=== PATIENT | female | born 1930 | race American Indian/Alaskan Native ===

== ENCOUNTER 2017-03-23 11:35 | Inpatient (IN) | payer MEDICARE, MEDICAID ==
--- NOTE | 2017-03-23 12:30 | C.PDOC ---
History Of Present Illness 86 yr old female sent to ER by for admission for an infected left heel ulcer. Patient was seen by on 03/20/17. History obtained by daughter. ROS is limited due to patient clinical condition. Daughter denies fever. Time Seen by Provider: 03/23/17 11:51 Chief Complaint (Nursing): Abnormal Skin Integrity History Per: Family (Daughter) History/Exam Limitations: no limitations Onset/Duration Of Symptoms: Days Past Medical History Reviewed: Historical Data, Nursing Documentation, Vital Signs Vital Signs: Last Vital Signs Temp 97.6 F 03/23/17 14:23 Pulse 90 03/23/17 14:23 Resp 20 03/23/17 14:23 BP 194/100 H 03/23/17 14:23 Pulse Ox 99 03/23/17 16:35 - Medical History PMH: Alzheimer's Disease, Anemia, Arthritis (right knee), Dementia, HTN, Hypercholesterolemia - [facility] Procedures ATRIAL CARDIOVERSION (04/12/15) CENTRAL VENOUS CATHETER PLACEMENT WITH GUIDANCE (09/25/14) INSERTION OF INFUSION DEV INTO SUP VENA CAVA, PERC APPROACH (06/11/16) Family History: States: No Known Family Hx - Social History Hx Tobacco Use: No Hx Alcohol Use: No Hx Substance Use: No - Immunization History Hx Tetanus Toxoid Vaccination: No Hx Influenza Vaccination: No Hx Pneumococcal Vaccination: No Review Of Systems Except As Marked, All Systems Reviewed And Found Negative. Constitutional: Negative for: Fever Musculoskeletal: Positive for: Other ((+) Left heel ulcer.) Physical Exam - Physical Exam Appears: Non-toxic, No Acute Distress, Combative, Agitated, Chronically Ill, Other (thin, dementia) Skin: Warm, Dry, No Rash, Other (Chronic open ulcer to the left heel 2x2cm with no drainage or malodor. Ulcerated open skin around the ankle with mild bleeding. No foul odor. Right foot with chronic ulcer to the dorsal foot.) Head: Atraumatic, Normacephalic Eye(s): bilateral: Normal Inspection Oral Mucosa: Moist Neck: Normal ROM Chest: Symmetrical, No Tenderness Cardiovascular: Rhythm Regular, No Murmur Respiratory: Normal Breath Sounds, No Rales, No Rhonchi, No Wheezing Extremity: Normal ROM, No Deformity, No Swelling Neurological/Psych: Other (Patient at baseline according to daughter. ) Gait: Unable To Assess ED Course And Treatment - Laboratory Results Result Diagrams: 03/23/17 12:44 03/23/17 12:44 Lab Interpretation: No Changes Compared To Prior Results ECG: Interpreted By Me, Viewed By Me ECG Rhythm: Sinus Rhythm ECG Interpretation: Normal Interpretation Of ECG: Normal intervals. Normal axis. Rate From EC (BPM) O2 Sat by Pulse Oximetry: 99 (RA ) Pulse Ox Interpretation: Normal - Other Rad CXR X-Ray: Viewed By Me, Read By Radiologist Interpretation: HISTORY: SOB. COMPARISON: Chest x-ray performed 06/11/16. TECHNIQUE: Chest, one view. FINDINGS: The patient's chin obscures evaluation of the left upper lobe. LUNGS: Mild left basilar linear atelectasis. Please note that chest x-ray has limited sensitivity for the detection of pulmonary masses. PLEURA: No significant pleural effusion identified. No definite pneumothorax . CARDIOVASCULAR: Heart size appears within normal limits. Atherosclerotic calcifications of the aorta. OSSEOUS STRUCTURES: Degenerative changes. VISUALIZED UPPER ABDOMEN: Elevation of the left hemidiaphragm. OTHER FINDINGS: None. IMPRESSION: Mild left basilar linear atelectasis. X-Ray - Left Foot X-Ray: Viewed By Me, Read By Radiologist Interpretation: PROCEDURE: Left Foot Radiographs. HISTORY: pain, ulcer, bleeding. COMPARISON: Left foot radiographs performed 06/11/16. FINDINGS: Severe diffuse osseous demineralization limits evaluation for acute fracture lines. Chronic deformities as well as severe hammertoe deformities limit evaluation. No acute displaced fracture identified. The foot is severely plantar flexed. IMPRESSION: No definite acute displaced fracture. Severe osteopenia. Severe degenerative changes. Medical Decision Making Medical Decision Making: Impression: Infected left foot ulcer Prior records reviewed: Patient last admitted for cellulitis and foot ulcer on 06/11/17 Plan: * EKG, labs xrays for admission Progress: 1215 Podiatry resident Debi arrives to ED to evaluate patient Podiatry applied dressing and wants patient admitted to medicine and will see as consult Labs show renal insuffiency, no leukocytosis Attempt to contact Dr Graf [phone] Faisal Polk who states its private patient and to continue trying. 1600 Still no call back from Dr Graf. contact hospitalist for admission. Patient to be admitted to Dr Jamil 1640 Dr Graf calls back and wants patient on his service Disposition - Disposition Disposition: HOSPITALIZED Disposition Time: 16:00 Condition: FAIR Forms: [facility] ([place]) - Clinical Impression Clinical Impression: Renal insufficiency, Foot ulcer, Cellulitis - PA / CARDIAC EXERCISE PHYSIOLOGIST / Resident Statement MD/DO has reviewed & agrees with the documentation as recorded. - Scribe Statement The provider has reviewed the documentation as recorded by the Scribe Vanesa Cruz All medical record entries made by the Scribe were at my direction and personally dictated by me. I have reviewed the chart and agree that the record accurately reflects my personal performance of the history, physical exam, medical decision making, and the department course for this patient. I have also personally directed, reviewed, and agree with the discharge instructions and disposition.
[2017-03-23 13:07] LABS: BILIRUBIN,TOTAL 0.4 mg/dL (0.2-1.3)
[2017-03-23 13:08] LABS: ALB/GLOB RATIO 0.8 (1.0-2.1); CALCIUM 8.9 mg/dl (8.6-10.4); TOTAL PROTEIN 7.1 g/dL (6.3-8.3)
[2017-03-23 13:21] LABS: BASO % 0.7 % (0.0-2.0); EOS # 0.2 K/uL (0.0-0.7); EOS % 3.6 % (0.0-4.0); LYMPH % 30.9 % (20.0-40.0); MEAN CELL VOLUME 88.6 fL (81.0-99.0); MEAN CORPUSCULAR HEMOGLOBIN 28.9 pg (27.0-31.0); MEAN CORPUSCULAR HGB CONC 32.6 g/dL (33.0-37.0); MEAN PLATELET VOLUME 7.2 fL (7.2-11.7); MONO # 0.6 K/uL (0.0-0.8); MONO % 8.6 % (0.0-10.0); NRBC % 0.3 % (0.0-2.0); RED CELL DISTRIBUTION WIDTH 16.5 % (11.5-14.5); WHITE BLOOD COUNT 6.6 K/uL (4.8-10.8)
[2017-03-23 13:26] LABS: INR 1.1
--- NOTE | 2017-03-23 13:31 | CP.PCM.CON ---
History of Present Illness - History of Present Illness History of Present Illness: 86 year old female with pmhx including demetnia was seen at bedside in the ED for left leg ulcer. Patients daughter is at bedside and history obtained from her. She saw Dr. Pierson in office on Thursday and he suggested they come to the ED for her to be examined. Daughter states that a nurse comes 3x a week for dressing changes. Past Patient History - Past Medical History & Family History Past Medical History?: Yes - Past Social History Smoking Status: Former Smoker - CARDIAC Hx Hypercholesterolemia: Yes Hx Hypertension: Yes - PULMONARY Hx Respiratory Disorders: No Other/Comment: FORMER SMOKER - NEUROLOGICAL Hx Alzheimer's Disease: Yes Hx Dementia: Yes - HEENT Hx HEENT Problems: No - RENAL Hx Chronic Kidney Disease: No - ENDOCRINE/METABOLIC Hx Endocrine Disorders: No - HEMATOLOGICAL/ONCOLOGICAL Hx Anemia: Yes - INTEGUMENTARY Hx Dermatological Problems: Yes Other/Comment: LEFT FOOT WOUND - MUSCULOSKELETAL/RHEUMATOLOGICAL Hx Arthritis: Yes (right knee) - GASTROINTESTINAL Hx Gastrointestinal Disorders: No - GENITOURINARY/GYNECOLOGICAL Hx Genitourinary Disorders: Yes Hx Incontinence: Yes - PSYCHIATRIC Hx Substance Use: No - SURGICAL HISTORY Hx Surgeries: No - ANESTHESIA Hx Anesthesia: Yes Hx Anesthesia Reactions: No Hx Malignant Hyperthermia: No Meds Allergies/Adverse Reactions: Allergies Allergy/AdvReac Type Severity Reaction Status Date / Time No Known Allergies Allergy Verified 03/23/17 11:41 Physical Exam - Constitutional Appears: Combative, Chronically Ill - Extremities Exam Additional comments: lower extremity focused exam: Vasc: Dp and PT pulses non-palpable b/l Neuro: unable to assess Ortho: Pain on palpation to right and left lower extremity Derm: Open ulceration noted circumferentailly around the left ankle. with sanginoud drainage, no malodor, no purulence noted. Open ulceration measuring approxiametly 2 cm by 2cm with a granulare base to the right heel, no drainage, no malodor, no purulence, noted - Neurological Exam Neurological exam: Alert, Altered Results - Vital Signs Recent Vital Signs: Last Vital Signs Temp 97.5 F L 03/23/17 11:56 Pulse Resp 16 03/23/17 11:38 BP 97/58 L 03/23/17 11:38 Pulse Ox 99 03/23/17 13:05 - Labs Result Diagrams: 03/23/17 12:44 03/23/17 12:44 Labs: Laboratory Results - last 24 hr 03/23/17 03/23/17 12:44 12:44 WBC 6.6 RBC 2.83 L Hgb 8.2 L Hct 25.0 L MCV 88.6 MCH 28.9 MCHC 32.6 L RDW 16.5 H Plt Count 338 D MPV 7.2 Neut % (Auto) 56.2 Lymph % (Auto) 30.9 [place] % (Auto) 8.6 Eos % (Auto) 3.6 Baso % (Auto) 0.7 Neut # 3.7 Lymph # 2.0 [place] # 0.6 Eos # 0.2 Baso # 0.0 Sodium 146 Potassium 4.0 Chloride 111 H Carbon Dioxide 23 Anion Gap 16 BUN 29 H Creatinine 1.5 H Est GFR ( Amer) 40 Est GFR (Non-Af Amer) 33 Random Glucose 99 Calcium 8.9 Total Bilirubin 0.4 AST 25 ALT 17 Alkaline Phosphatase 98 Total Protein 7.1 Albumin 3.2 L Globulin 3.9 Albumin/Globulin Ratio 0.8 L Assessment & Plan - Assessment and Plan (Free Text) Assessment: 86 year old female with left ankle ulcer, and right heel pressure ulcer Plan: pt examined and evaluated discussed in detail with attending, Dr. Pierson chart, labs, vitals reviewed wound culture of left ankle pending left and right LE cleansed with normal sterile saline left ankle dressed with adaptic, 4x4, ABD, kerlix right heel dressed with ABD, kerlix [facility]u [facility]iatry will continue to follow patient while in house
--- NOTE | 2017-03-23 14:22 | RAD ---
HISTORY: SOB COMPARISON: Chest x-ray performed 06/11/16 TECHNIQUE: Chest, one view. FINDINGS: The patient's chin obscures evaluation of the left upper lobe. LUNGS: Mild left basilar linear atelectasis. Please note that chest x-ray has limited sensitivity for the detection of pulmonary masses. PLEURA: No significant pleural effusion identified. No definite pneumothorax . CARDIOVASCULAR: Heart size appears within normal limits. Atherosclerotic calcifications of the aorta. OSSEOUS STRUCTURES: Degenerative changes. VISUALIZED UPPER ABDOMEN: Elevation of the left hemidiaphragm. OTHER FINDINGS: None. IMPRESSION: Mild left basilar linear atelectasis.
--- NOTE | 2017-03-23 14:30 | RAD ---
PROCEDURE: Left Foot Radiographs. HISTORY: pain, ulcer, bleeding COMPARISON: Left foot radiographs performed 06/11/16 FINDINGS: Severe diffuse osseous demineralization limits evaluation for acute fracture lines. Chronic deformities as well as severe hammertoe deformities limit evaluation. No acute displaced fracture identified. The foot is severely plantar flexed. IMPRESSION: No definite acute displaced fracture. Severe osteopenia. Severe degenerative changes.
[2017-03-23] MEDS ORDERED: Vancomycin 1 GM 1 GM/250 ML BAG IV ONE (16:45)
[2017-03-23] MEDS ORDERED: Piperacillin/Tazobact 2.25 GM in Sodium Chloride 100 ML IVPB SCH (17:45)
--- NOTE | 2017-03-23 17:50 | CP.PCM.HP ---
<Cristopher Juares - Last Filed: 03/23/17 18:21> History of Present Illness - History of Present Illness History of Present Illness: PGY1 Medicine Note for Dr. Jamil 86 year old AA female with a past medical history of Dementia, HTN, HLD and chronic anemia (of unknown cause). Patient's dementia is rather advanced, diagnosed over 4 years ago. She is able to speak, but does not always make sense. Her daughter is at bedside, and is the one who provided the large majority of the history. The patient was sent into the ED today by Dr. Pierson. The patient has chronic non-healing ulcers on both side of her feet, and has had them for many years. The daughter was giving the patient a bath when she noticed a new ulcer under the left side of the patient's heel. The patient has a history of a skin graft in this region, many years ago. The daughter states that over the past couple of years, "the graft appears to be deteriorating and falling off." When the patient was asked if she is in any pain or had any trouble breathing, she stated no. The rest of the review of symptoms was unattainable due to the patient's inability to answer any questions or follow commands. PMHx: Dementia, HTN, HLD and chronic anemia PSHx: Craniotomy (after fall), some knee surgery when she was young Family: unknown Social: Previous smoker, previous drinker (socially), denies drugs Allergy: NKDA Present on Admission - Present on Admission Any Indicators Present on Admission: No Review of Systems - Review of Systems Systems not reviewed;Unavailable: Dementia Past Patient History - Past Medical History & Family History Past Medical History?: Yes - Past Social History Smoking Status: Former Smoker - CARDIAC Hx Hypercholesterolemia: Yes Hx Hypertension: Yes - PULMONARY Hx Respiratory Disorders: No Other/Comment: FORMER SMOKER - NEUROLOGICAL Hx Alzheimer's Disease: Yes Hx Dementia: Yes - HEENT Hx HEENT Problems: No - RENAL Hx Chronic Kidney Disease: No - ENDOCRINE/METABOLIC Hx Endocrine Disorders: No - HEMATOLOGICAL/ONCOLOGICAL Hx Anemia: Yes - INTEGUMENTARY Hx Dermatological Problems: Yes Other/Comment: LEFT FOOT WOUND - MUSCULOSKELETAL/RHEUMATOLOGICAL Hx Arthritis: Yes (right knee) - GASTROINTESTINAL Hx Gastrointestinal Disorders: No - GENITOURINARY/GYNECOLOGICAL Hx Genitourinary Disorders: Yes Hx Incontinence: Yes - PSYCHIATRIC Hx Substance Use: No - SURGICAL HISTORY Hx Surgeries: No - ANESTHESIA Hx Anesthesia: Yes Hx Anesthesia Reactions: No Hx Malignant Hyperthermia: No Meds Allergies/Adverse Reactions: Allergies Allergy/AdvReac Type Severity Reaction Status Date / Time No Known Allergies Allergy Verified 03/23/17 11:41 Physical Exam - Constitutional Appears: Confused, Chronically Ill - Head Exam Additional comments: Scar from previous craniotomy on right side of head. - Eye Exam Eye Exam: EOMI - ENT Exam ENT Exam: Mucous Membranes Moist - Respiratory Exam Respiratory Exam: Clear to Auscultation Bilateral, NORMAL BREATHING PATTERN. absent: Accessory Muscle Use, Wheezes, Respiratory Distress - Cardiovascular Exam Cardiovascular Exam: REGULAR RHYTHM, +S1, +S2 - GI/Abdominal Exam GI & Abdominal Exam: Normal Bowel Sounds, Soft. absent: Distended, Firm, Guarding - Extremities Exam Additional comments: Podiatry recently changed dressings on feet, neither foot was visualized by resident. - Neurological Exam Neurological exam: Alert, Altered - Skin Skin Exam: Warm Additional comments: Feet are wrapping and sitting in pressure ulcer boots. Results - Vital Signs Recent Vital Signs: Last Vital Signs Temp 97.9 F 03/23/17 16:34 Pulse 74 03/23/17 16:34 Resp 16 03/23/17 16:34 BP 111/54 L 03/23/17 16:34 Pulse Ox 99 03/23/17 16:40 - Labs Result Diagrams: 03/23/17 12:44 03/23/17 12:44 Assessment & Plan - Assessment and Plan (Free Text) Plan: Chronic non-healing ulcers - Podiatry Consulted, Dr. Pierson - will follow up recs - HTN Started on home medications - HCTZ 12.5mg PO daily - Lopressor 25mg PO daily HLD Started on home medication - Crestor 10mg PO HS Dementia Started on home medication - Memantine Hcl/Donepezil Hcl 7mg-10mg PO daily - Lexapro 5mg PO HS - Topamax 25mg PO BID Anemia Started on home medications - Ferrous Sulfate 325mg PO daily - Folic Acid 1mg PO daily Prophylactic Care DC'd patient's home Plavix in case of potential procedure - Heparin 5,000u SC Q8h - No GI prophylaxis indicated at this time This is a patient of Dr. Locke. Staff attempted to contact him multiple times to accept patient for admission. He was unable to be reached, so the patient will be admitted under the hospitalist care for now. We will attempt to contact him again tomorrow . Case discussed with Dr. Loulou Ascencion PGY1 - Date & Time Date: 03/23/17 Time: 17:00 <Rm Jamil - Last Filed: 03/24/17 07:22> Results - Vital Signs Recent Vital Signs: Last Vital Signs Temp 98.5 F 03/23/17 23:00 Pulse 87 03/23/17 23:00 Resp 20 03/23/17 23:00 BP 119/59 L 03/23/17 23:00 Pulse Ox 97 03/23/17 23:00 - Labs Result Diagrams: 03/23/17 12:44 03/23/17 12:44 Attending/Attestation - Attestation I have personally seen and examined this patient.: Yes I have fully participated in the care of the patient.: Yes I have reviewed all pertinent clinical information: Yes Notes (Text): 03/24/17 07:16 Medical Attending: Patient was seen and examined by me. Agree with the above note by the resident Patient's PMD does come to the hospital, I asked the resident to try to reach out to the PMD again. The patient's family member was present in the room and we discussed and reviewed the history of the bilateral foot ulcers. The dressing had just been changed before we saw patient. Patient appears to have a baseline dementia, pleasant affect. Only follows a few commands when examined. She is not in any acute distress at this time. We also asked about Hgb being low, per family there is a history of anemia. We asked about blood transfusion however the family said they wanted to think things over first. Type and screen for now thank you Rm Jamil
[2017-03-23] MEDS ORDERED: Vancomycin 1 GM 1 GM/250 ML BAG IVPB ONE (19:31)
[2017-03-23] MEDS: Piperacillin/Tazobact 2.25 GM in Sodium Chloride 100 ML IVPB SCH (20:42)
--- NOTE | 2017-03-23 23:08 | CP.PCM.CON ---
History of Present Illness - History of Present Illness History of Present Illness: Infectious Disease Consult; HPI; 86-year-old female with multiple medical problems including Alzheimer's dementia , hypertension hypercholesterolemia who presented to [facility] ER for left leg ulcer. Patient's daughter is at bedside and history obtained from her. Patient saw Dr. Pierson in the office on Thursday who suggested her to come to the ER for admission and further workup. Daughter states that the patient had nurse come 3 times a week for dressing changes but with little improvement. She denied any fever, chills or any recent injury or trauma to the left ankle or heel. Patient was given a dose of Zosyn and one dose of vancomycin after appropriate cultures. Infectious disease consultation requested by Dr. JOLLEY for further evaluation and antibiotics. PMH: Alzheimer's Disease, Dementia, HTN, Hypercholesterolemia Family History: States: Unknown Family Hx ALLERGY; NKA - Social History Hx Tobacco Use: No Hx Alcohol Use: No Hx Substance Use: No - Immunization History Hx Tetanus Toxoid Vaccination: Yes Hx Influenza Vaccination: Yes Hx Pneumococcal Vaccination: Yes Review of Systems - Review of Systems Systems not reviewed;Unavailable: Dementia (PATIENT UNABLE TO GIVE ANY DETAILS.) Past Patient History - Past Medical History & Family History Past Medical History?: Yes - Past Social History Smoking Status: Former Smoker - CARDIAC Hx Hypercholesterolemia: Yes Hx Hypertension: Yes Other/Comment: atrial cardioversion - PULMONARY Hx Respiratory Disorders: No Other/Comment: FORMER SMOKER - NEUROLOGICAL Hx Alzheimer's Disease: Yes Hx Dementia: Yes - HEENT Hx HEENT Problems: No - RENAL Hx Chronic Kidney Disease: No - ENDOCRINE/METABOLIC Hx Endocrine Disorders: No - HEMATOLOGICAL/ONCOLOGICAL Hx Anemia: Yes - INTEGUMENTARY Hx Dermatological Problems: Yes Other/Comment: LEFT FOOT WOUND - MUSCULOSKELETAL/RHEUMATOLOGICAL Hx Falls: No - GASTROINTESTINAL Hx Gastrointestinal Disorders: No - GENITOURINARY/GYNECOLOGICAL Hx Genitourinary Disorders: Yes Hx Incontinence: Yes - PSYCHIATRIC Hx Substance Use: No - SURGICAL HISTORY Hx Surgeries: No - ANESTHESIA Hx Anesthesia: Yes Hx Anesthesia Reactions: No Hx Malignant Hyperthermia: No Has any member of the family had a problem w/ anesthesia?: No Meds Allergies/Adverse Reactions: Allergies Allergy/AdvReac Type Severity Reaction Status Date / Time No Known Allergies Allergy Verified 03/23/17 11:41 - Medications Medications: Current Medications Escitalopram Oxalate (Lexapro) 5 mg PO HS [facility] Last Admin: 03/23/17 22:27 Dose: 5 mg Ferrous Sulfate (Feosol) 325 mg PO DAILY [facility] Folic Acid (Folic Acid) 1 mg PO DAILY [facility] Heparin Sodium (Porcine) (Heparin) 5,000 units SC Q8 [facility] Last Admin: 03/23/17 22:05 Dose: 5,000 units Home Med (Memantine Hcl/Donepezil Hcl [Namzaric 7 Mg-10 Mg Capsule]) 1 each PO DAILY [facility] Hydrochlorothiazide (Microzide) 12.5 mg PO DAILY [facility] Piperacillin Sod/Tazobactam (Sod 2.25 gm/ Sodium Chloride) 100 mls @ 200 mls/ hr IVPB Q8H [facility] Last Admin: 03/23/17 20:42 Dose: Not Given Metoprolol Tartrate (Lopressor) 25 mg PO DAILY [facility] Pneumococcal Polyvalent Vaccine (Pneumovax 23 Vaccine) 0.5 ml IM .ONCE ONE Stop: 03/25/17 10:01 Rosuvastatin Calcium (Crestor) 10 mg PO [facility] Last Admin: 03/23/17 22:01 Dose: 10 mg Topiramate (Topamax) 25 mg PO BID [facility] Last Admin: 03/23/17 22:01 Dose: 25 mg Zinc Sulfate (Zinc Sulfate 220 Mg Cap) 220 mg PO DAILY [facility] Physical Exam - Constitutional Appears: No Acute Distress - Head Exam Head Exam: NORMAL INSPECTION - Eye Exam Eye Exam: PERRL - ENT Exam ENT Exam: Normal Oropharynx - Neck Exam Neck exam: Positive for: Normal Inspection - Respiratory Exam Respiratory Exam: Decreased Breath Sounds - Cardiovascular Exam Cardiovascular Exam: REGULAR RHYTHM, +S1, +S2 - GI/Abdominal Exam GI & Abdominal Exam: Normal Bowel Sounds, Soft - Extremities Exam Extremities exam: Negative for: calf tenderness Additional comments: patient has an ulcer around the left ankle with minimal drainage, no purulence noted. Open ulcer about 2 cm x 2 cm right heel noted with no drainage. pulses are distant and not palpable. Sensory examination could not be evaluated. Tenderness at the site and around the ulcer on palpation. - Neurological Exam Neurological exam: Alert (forgetful) - Psychiatric Exam Psychiatric exam: Flat Affect - Skin Skin Exam: Warm Results - Vital Signs Recent Vital Signs: Last Vital Signs Temp 98 F 03/23/17 20:15 Pulse 70 03/23/17 20:15 Resp 16 03/23/17 20:15 BP 111/52 L 03/23/17 20:15 Pulse Ox 100 03/23/17 20:15 - Labs Result Diagrams: 03/23/17 12:44 03/23/17 12:44 - Imaging and Cardiology Chest x-ray Status: Report reviewed by me (LEFT BASILAR ATELECTASIS.) X-RAYS LEFT FOOT Status: Report reviewed by me Assessment & Plan (1) Foot ulcer Status: Acute (2) Renal insufficiency Status: Acute (3) Anemia Status: Acute (4) HTN (hypertension) Status: Acute (5) Dementia Status: Acute - Assessment and Plan (Free Text) Assessment: IMPRESSION: LEFT ANKLE ULCER R/O OSTEOMYELITIS RIGHT HEEL PRESSURE ULCER -STAGE 2 RENAL INSUFFICIENCY. ANEMIA. HYPERTENSION. DEMENTIA. PLAN; PANCULTURES wOUND CULTURES ESR,CRP. CONTINUE iv ZOSYN 2.25 EVERY 8 HOURLY .03/23/17. START iv DAPTOMYCIN 4 MG/KG iv PIGGYBACK EVERY 48 HOURLY FOR MRSA/STREP COVERAGE.03/23/17 PATIENT GOT ONE DOSE OF VANCOMYCIN BUT HAS CHRONIC RENAL INSUFFICIENCY. wE'LL HOLD OFF NEPHROTOXIC DRUGS WERE NOW. fOLLOW-UP CULTURES AND BONE SCAN FOR FURTHER MANAGEMENT AND ADJUSTMENT OF ANTIBIOTICS. CASE DISCUSSED WITH THE STAFF LICENSED LOAN OFFICER ASSISTANT.
[2017-03-24] MEDS: Piperacillin/Tazobact 2.25 GM in Sodium Chloride 100 ML IVPB SCH ×3 (02:15→19:11)
--- NOTE | 2017-03-24 07:44 | CP.PCM.PN ---
Objective - Vital Signs/Intake and Output Vital Signs (last 24 hours): Temp Pulse Resp BP Pulse Ox 98.5 F 87 20 119/59 L 97 03/23/17 23:00 03/23/17 23:00 03/23/17 23:00 03/23/17 23:00 03/23/17 23:00 Intake and Output: 03/24/17 03/24/17 06:59 18:59 Intake Total 50 Output Total 0 Balance 50 - Medications Medications: Current Medications Escitalopram Oxalate (Lexapro) 5 mg PO HS [facility] Last Admin: 03/23/17 22:27 Dose: 5 mg Ferrous Sulfate (Feosol) 325 mg PO DAILY [facility] Folic Acid (Folic Acid) 1 mg PO DAILY [facility] Heparin Sodium (Porcine) (Heparin) 5,000 units SC Q8 [facility] Last Admin: 03/24/17 05:09 Dose: Not Given Home Med (Memantine Hcl/Donepezil Hcl [Namzaric 7 Mg-10 Mg Capsule]) 1 each PO DAILY [facility] Hydrochlorothiazide (Microzide) 12.5 mg PO DAILY [facility] Piperacillin Sod/Tazobactam (Sod 2.25 gm/ Sodium Chloride) 100 mls @ 200 mls/ hr IVPB Q8H [facility] Last Admin: 03/24/17 02:15 Dose: 200 mls/hr Daptomycin 240 mg/ Sodium (Chloride) 100 mls @ 100 mls/hr IV Q48H [facility] Stop: 03/29/17 10:31 Metoprolol Tartrate (Lopressor) 25 mg PO DAILY [facility] Pneumococcal Polyvalent Vaccine (Pneumovax 23 Vaccine) 0.5 ml IM .ONCE ONE Stop: 03/25/17 10:01 Topiramate (Topamax) 25 mg PO BID [facility] Last Admin: 03/23/17 22:01 Dose: 25 mg Zinc Sulfate (Zinc Sulfate 220 Mg Cap) 220 mg PO DAILY [facility] - Labs Labs: PT 12.5 SECONDS (9.7-12.2) H 03/23/17 13:14 INR 1.1 03/23/17 13:14 APTT 32 SECONDS (21-34) 03/23/17 13:14
[2017-03-24 08:06] LABS: BASO % 0.5 % (0.0-2.0); EOS # 0.2 K/uL (0.0-0.7); EOS % 3.1 % (0.0-4.0); HEMATOCRIT 24.9 % (34.0-47.0); LYMPH # 1.5 K/uL (1.0-4.3); LYMPH % 26.1 % (20.0-40.0); MEAN CELL VOLUME 88.7 fL (81.0-99.0); MEAN CORPUSCULAR HEMOGLOBIN 28.2 pg (27.0-31.0); MEAN CORPUSCULAR HGB CONC 31.8 g/dL (33.0-37.0); MEAN PLATELET VOLUME 7.1 fL (7.2-11.7); MONO # 0.5 K/uL (0.0-0.8); MONO % 8.6 % (0.0-10.0); RED CELL DISTRIBUTION WIDTH 16.4 % (11.5-14.5); WHITE BLOOD COUNT 5.8 K/uL (4.8-10.8)
[2017-03-24 08:27] LABS: POTASSIUM 3.9 mmol/L (3.6-5.2)
[2017-03-24 08:29] LABS: BILIRUBIN,TOTAL 0.4 mg/dL (0.2-1.3)
[2017-03-24 08:30] LABS: ALB/GLOB RATIO 0.9 (1.0-2.1); CALCIUM 8.7 mg/dl (8.6-10.4); TOTAL PROTEIN 6.4 g/dL (6.3-8.3)
--- NOTE | 2017-03-24 09:39 | CP.PCM.PN ---
<Reji Pierson - Last Filed: 03/24/17 09:37> Subjective - Date & Time of Evaluation Date of Evaluation: 03/24/17 Time of Evaluation: 09:15 - Subjective Subjective: pt seen for infected ulcers left ankle extensive in nature and right heel . Objective - Vital Signs/Intake and Output Vital Signs (last 24 hours): Temp Pulse Resp BP Pulse Ox 98 F 86 20 129/60 97 03/24/17 08:00 03/24/17 08:00 03/24/17 08:00 03/24/17 08:00 03/23/17 23:00 Intake and Output: 03/24/17 03/24/17 06:59 18:59 Intake Total 50 Output Total 0 Balance 50 - Medications Medications: Current Medications Escitalopram Oxalate (Lexapro) 5 mg PO HS [facility] Last Admin: 03/23/17 22:27 Dose: 5 mg Ferrous Sulfate (Feosol) 325 mg PO DAILY [facility] Folic Acid (Folic Acid) 1 mg PO DAILY [facility] Heparin Sodium (Porcine) (Heparin) 5,000 units SC Q8 [facility] Last Admin: 03/24/17 05:09 Dose: Not Given Home Med (Memantine Hcl/Donepezil Hcl [Namzaric 7 Mg-10 Mg Capsule]) 1 each PO DAILY [facility] Hydrochlorothiazide (Microzide) 12.5 mg PO DAILY [facility] Piperacillin Sod/Tazobactam (Sod 2.25 gm/ Sodium Chloride) 100 mls @ 200 mls/ hr IVPB Q8H [facility] Last Admin: 03/24/17 02:15 Dose: 200 mls/hr Daptomycin 240 mg/ Sodium (Chloride) 100 mls @ 100 mls/hr IV Q48H [facility] Stop: 03/29/17 10:31 Metoprolol Tartrate (Lopressor) 25 mg PO DAILY [facility] Pneumococcal Polyvalent Vaccine (Pneumovax 23 Vaccine) 0.5 ml IM .ONCE ONE Stop: 03/25/17 10:01 Topiramate (Topamax) 25 mg PO BID [facility] Last Admin: 03/23/17 22:01 Dose: 25 mg Zinc Sulfate (Zinc Sulfate 220 Mg Cap) 220 mg PO DAILY [facility] - Labs Labs: 03/24/17 07:54 03/24/17 07:54 PT 12.5 SECONDS (9.7-12.2) H 03/23/17 13:14 INR 1.1 03/23/17 13:14 APTT 32 SECONDS (21-34) 03/23/17 13:14 <Alethea Browne - Last Filed: 03/24/17 14:18> Subjective - Subjective Subjective: 86 year old female was seen at bedside this morning with attending Dr. Pierson, regarding left ankle ulcer and right heel ulcer. Objective - Vital Signs/Intake and Output Vital Signs (last 24 hours): Temp Pulse Resp BP Pulse Ox 98 F 86 20 129/60 97 03/24/17 08:00 03/24/17 08:00 03/24/17 08:00 03/24/17 09:46 03/23/17 23:00 Intake and Output: 03/24/17 03/24/17 06:59 18:59 Intake Total 50 Output Total 0 Balance 50 - Medications Medications: Current Medications Escitalopram Oxalate (Lexapro) 5 mg PO [facility] Last Admin: 03/23/17 22:27 Dose: 5 mg Ferrous Sulfate (Feosol) 325 mg PO DAILY [facility] Last Admin: 03/24/17 09:46 Dose: 325 mg Folic Acid (Folic Acid) 1 mg PO DAILY [facility] Last Admin: 03/24/17 09:45 Dose: 1 mg Heparin Sodium (Porcine) (Heparin) 5,000 units SC Q8 [facility] Last Admin: 03/24/17 05:09 Dose: Not Given Home Med (Memantine Hcl/Donepezil Hcl [Namzaric 7 Mg-10 Mg Capsule]) 1 each PO DAILY [facility] Hydrochlorothiazide (Microzide) 12.5 mg PO DAILY [facility] Last Admin: 03/24/17 09:45 Dose: 12.5 mg Piperacillin Sod/Tazobactam (Sod 2.25 gm/ Sodium Chloride) 100 mls @ 200 mls/ hr IVPB Q8H [facility] Last Admin: 03/24/17 11:04 Dose: 200 mls/hr Daptomycin 240 mg/ Sodium (Chloride) 100 mls @ 100 mls/hr IV Q48H [facility] Stop: 03/29/17 10:31 Last Admin: 03/24/17 10:15 Dose: 100 mls/hr Metoprolol Tartrate (Lopressor) 25 mg PO DAILY [facility] Last Admin: 03/24/17 09:46 Dose: 25 mg Pneumococcal Polyvalent Vaccine (Pneumovax 23 Vaccine) 0.5 ml IM .ONCE ONE Stop: 03/25/17 10:01 Topiramate (Topamax) 25 mg PO BID [facility] Last Admin: 03/23/17 22:01 Dose: 25 mg Zinc Sulfate (Zinc Sulfate 220 Mg Cap) 220 mg PO DAILY [facility] Last Admin: 03/24/17 09:45 Dose: 220 mg - Labs Labs: 03/24/17 07:54 03/24/17 07:54 PT 12.5 SECONDS (9.7-12.2) H 03/23/17 13:14 INR 1.1 03/23/17 13:14 APTT 32 SECONDS (21-34) 03/23/17 13:14 - Constitutional Appears: Confused, Chronically Ill - Extremities Exam Additional comments: lower extremity focused exam: Vasc: DP and PT pulses non-palpable b/l Neuro: unable to assess Ortho: Pain on palpation to right and left lower extremity Derm: Open ulceration noted circumferentially around the left ankle with sanguineous drainage, no malodor, no purulence noted. Open ulceration measuring approxiametly 2 cm by 2cm with a granular base to the right heel, with sanguineous drainage, no malodor, no purulence noted - Neurological Exam Neurological Exam: Alert Assessment and Plan - Assessment and Plan (Free Text) Assessment: 86 year old female with left ankle ulcer, and right heel pressure ulcer Plan: pt examined and evaluated with attending, Dr. Pierson chart, labs, vitals reviewed wound culture of left ankle -pending left and right LE cleansed with normal sterile saline left ankle dressed with xeroform, 4x4, ABD, kerlix right heel dressed with xeroform,ABD, kerlix daily dressings by podiatry [facility] bone scan-pending podiatry will continue to follow patient while in house
[2017-03-24] MEDS ORDERED: DAPTOmycin 500 mg Inj (Cubicin) IV SCH (10:30)
--- NOTE | 2017-03-24 11:40 | CARD ---
APPROVED REPORT EKG Measurement Heart [id number] [id number] <Conclusion> Normal sinus rhythm Baseline artifact Unremarkable EKG
--- NOTE | 2017-03-24 15:27 | NM ---
PROCEDURE: Whole Body Bone Scan HISTORY: Left nonhealing foot ulcer COMPARISON: Left foot radiographs 03/23/2017. TECHNIQUE: Following administration of 24.1 mCi miCu of Tc MDP multiplanar whole body images were obtained. FINDINGS: Evidence for bony metastatic disease: None. Degenerative uptake: 1st metatarsophalangeal joint region. Physiologic uptake: Normal physiologic activity in the kidneys. Other findings: Increased uptake is appreciate throughout the distal left leg in the dynamic phase images which persists into the median delayed static images. Uptake not seen in initial dynamic and immediate static images tarsus is seen at the 1st metatarsophalangeal joint region in the delayed static views suggesting degenerative uptake. Uptake persists in the periphery of the left hindfoot/distal ankle suggestive of cellulitis. There is no suspicious calcaneal uptake appreciated. IMPRESSION: Findings most compatible with degenerative uptake at the 1st metatarsophalangeal joint left foot as well cellulitis of the hind foot and ankle soft tissues. No definitive pattern suggest osteomyelitis at this time. Further characterization can provided by MRI as clinically warranted.
--- NOTE | 2017-03-24 17:45 | CP.PCM.PN ---
Subjective - Date & Time of Evaluation Date of Evaluation: 03/24/17 Time of Evaluation: 17:45 - Subjective Subjective: CHIEF COMPLAINTS TODAY : AFEBRILE PATIENT RESTING COMFORTABLY Daughter at bedside. Patient went for CERETAC SCAN. ROS - NA-on observation only HEENT : N. Resp : No SOB wheezing, cough Cardio : No CP, PND orthopnea GI : No abd. 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 Musculoskel : N Ext. : Pedal pulses WEAK no edema or calf pain B/L FEET IN DRESSINGS C/D/I Derm : N Psych : N. PE. Pt. is RESTING, in no distress. V.S As noted in the chart Head ,ear nose,throat and eyes : Normal. Neck : Supple with normal carotids. Lungs: Clear air entry. Heart : S1 & S2 normal . . No murmur. S4 + Abd : Soft non tender with normal bowel sounds. Neuro : PATIENT CONTRACTED WITH TWISTING OFF MUSCLES/LE bILATERAL FEET AND ANKLE IN DRESSING Ext : bilateral feet in dressing, BONES AND TENDONS VISIBLE BOTH FEET, Neg. calf tenderness Derm : No rashes Radiology/Labs . REVIEWED WOUND CULTURE+ve staph aureus/ GNR Asssessment : IMPRESSION: LEFT ANKLE ULCER R/O OSTEOMYELITIS RIGHT HEEL PRESSURE ULCER -STAGE 2 RENAL INSUFFICIENCY. ANEMIA. HYPERTENSION. DEMENTIA. PLAN; PANCULTURES wOUND CULTURES ESR,CRP. CONTINUE iv ZOSYN 2.25 EVERY 8 HOURLY .03/23/17. START iv DAPTOMYCIN 4 MG/KG iv PIGGYBACK EVERY 48 HOURLY FOR MRSA/STREP COVERAGE.03/23/17 PATIENT GOT ONE DOSE OF VANCOMYCIN BUT HAS CHRONIC RENAL INSUFFICIENCY. wE'LL HOLD OFF NEPHROTOXIC DRUGS WERE NOW. fOLLOW-UP CULTURES AND CERATAC SCAN FOR FURTHER MANAGEMENT AND ADJUSTMENT OF ANTIBIOTICS. CASE DISCUSSED WITH THE DAUGHTER AT BEDSIDE. Objective - Vital Signs/Intake and Output Vital Signs (last 24 hours): Temp Pulse Resp BP Pulse Ox 98.1 F 80 20 137/79 99 03/24/17 16:00 03/24/17 16:00 03/24/17 16:00 03/24/17 16:00 03/24/17 16:00 Intake and Output: 03/24/17 03/24/17 06:59 18:59 Intake Total 50 Output Total 0 Balance 50 - Medications Medications: Current Medications Escitalopram Oxalate (Lexapro) 5 mg PO HS [facility] Last Admin: 03/23/17 22:27 Dose: 5 mg Ferrous Sulfate (Feosol) 325 mg PO DAILY [facility] Last Admin: 03/24/17 09:46 Dose: 325 mg Folic Acid (Folic Acid) 1 mg PO DAILY [facility] Last Admin: 03/24/17 09:45 Dose: 1 mg Heparin Sodium (Porcine) (Heparin) 5,000 units SC Q8 [facility] Last Admin: 03/24/17 14:31 Dose: 5,000 units Home Med (Memantine Hcl/Donepezil Hcl [Namzaric 7 Mg-10 Mg Capsule]) 1 each PO DAILY [facility] Hydrochlorothiazide (Microzide) 12.5 mg PO DAILY [facility] Last Admin: 03/24/17 09:45 Dose: 12.5 mg Piperacillin Sod/Tazobactam (Sod 2.25 gm/ Sodium Chloride) 100 mls @ 200 mls/ hr IVPB Q8H [facility] Last Admin: 03/24/17 11:04 Dose: 200 mls/hr Daptomycin 240 mg/ Sodium (Chloride) 100 mls @ 100 mls/hr IV Q48H [facility] Stop: 03/29/17 10:31 Last Admin: 03/24/17 10:15 Dose: 100 mls/hr Metoprolol Tartrate (Lopressor) 25 mg PO DAILY [facility] Last Admin: 03/24/17 09:46 Dose: 25 mg Pneumococcal Polyvalent Vaccine (Pneumovax 23 Vaccine) 0.5 ml IM .ONCE ONE Stop: 03/25/17 10:01 Topiramate (Topamax) 25 mg PO BID [facility] Last Admin: 03/24/17 10:00 Dose: 25 mg Zinc Sulfate (Zinc Sulfate 220 Mg Cap) 220 mg PO DAILY [facility] Last Admin: 03/24/17 09:45 Dose: 220 mg - Labs Labs: 03/24/17 07:54 03/24/17 07:54 PT 12.5 SECONDS (9.7-12.2) H 03/23/17 13:14 INR 1.1 03/23/17 13:14 APTT 32 SECONDS (21-34) 03/23/17 13:14 Assessment and Plan (1) Foot ulcer Status: Acute (2) Renal insufficiency Status: Acute (3) Anemia Status: Acute (4) HTN (hypertension) Status: Acute (5) Dementia Status: Acute
[2017-03-25] MEDS: Piperacillin/Tazobact 2.25 GM in Sodium Chloride 100 ML IVPB SCH ×3 (02:08→19:00)
--- NOTE | 2017-03-25 02:40 | HP ---
The patient was seen and referred by Dr. Jamil . 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 The patient was seen in the office by Dr. Pierson, was found that also was somewhat infected and cellulitis, so the patient was sent to the emergency room for admission. ALLERGIES: THE PATIENT HAS NO KNOWN ALLERGIES. PAST MEDICAL HISTORY: On admission, history of Alzheimer's, hypertension, arthritis and chronic ulcer of the leg and also the patient is a wheelchair bound. SOCIAL HISTORY: The patient lives with daughter. FAMILY HISTORY: No inherited disease. REVIEW OF SYSTEMS: The patient was not able to give much information because of mental condition. PHYSICAL EXAMINATION: GENERAL: The patient is awake but confused. VITAL SIGNS: Blood pressure of 137/79, pulse 80, respiration 20, and temperature 98.1. The patient had some weight loss, but noted. NECK: Supple. LUNGS: Poor inspiratory effort. HEART: Regular rate and rhythm. Positive murmur. ABDOMEN: Soft. Positive bowel sounds. EXTREMITIES: There is a redness of the left leg and also there is a ulcer, infected wound to the left leg and in some portion of the left foot. LABORATORY DATA: The patient's blood work was done on admission WBC 6.6, hemoglobin 8.2, hematocrit 25 and platelet is 338. Chemistry showed sodium 146, potassium 4, chloride 111, bicarb is 23, BUN 29, creatinine is 1.5 and calcium 8.9. AST 25, ALT 17, alkaline phosphatase 98, total protein 7.1, albumin is 3.2 and globulin is 3.9. Coagulation shows that the PT 12.5, INR 1.1 and PTT of 32. IMPRESSION: The patient was admitted with diagnoses of cellulitis of the left leg and infected chronic ulcer and also Alzheimer, and arthritis. The patient will have a consult with Dr. Ketan Youngblood, Infectious Disease and also with Dr. Pierson, who is a [employer]. Jaquan Graf MD
[2017-03-25 07:17] LABS: BASO % 0.4 % (0.0-2.0); EOS # 0.3 K/uL (0.0-0.7); HEMATOCRIT 24.6 % (34.0-47.0); LYMPH # 2.1 K/uL (1.0-4.3); LYMPH % 37.4 % (20.0-40.0); MEAN CELL VOLUME 88.2 fL (81.0-99.0); MEAN CORPUSCULAR HEMOGLOBIN 28.6 pg (27.0-31.0); MEAN CORPUSCULAR HGB CONC 32.4 g/dL (33.0-37.0); MEAN PLATELET VOLUME 6.9 fL (7.2-11.7); MONO # 0.4 K/uL (0.0-0.8); MONO % 7.5 % (0.0-10.0); NRBC % 0.1 % (0.0-2.0); RED CELL DISTRIBUTION WIDTH 16.7 % (11.5-14.5); WHITE BLOOD COUNT 5.7 K/uL (4.8-10.8)
[2017-03-25 08:05] LABS: CALCIUM 8.7 mg/dl (8.6-10.4)
[2017-03-25] MEDS ORDERED: Pneumococcal 23-Valent Vaccine IM ONE (10:00)
--- NOTE | 2017-03-25 12:13 | CP.PCM.PN ---
Subjective - Date & Time of Evaluation Date of Evaluation: 03/25/17 Time of Evaluation: 12:10 - Subjective Subjective: 86 year old female was seen at bedside this morning regarding left ankle ulcer and right heel ulcer. Patient NAD. Objective - Vital Signs/Intake and Output Vital Signs (last 24 hours): Temp Pulse Resp BP Pulse Ox 98.7 F 85 20 130/72 96 03/25/17 08:00 03/25/17 10:03 03/25/17 08:00 03/25/17 10:10 03/25/17 10:03 Intake and Output: 03/25/17 03/25/17 06:59 18:59 Intake Total 50 Output Total 0 Balance 50 - Medications Medications: Current Medications Escitalopram Oxalate (Lexapro) 5 mg PO HS [facility] Last Admin: 03/24/17 22:19 Dose: 5 mg Ferrous Sulfate (Feosol) 325 mg PO DAILY [facility] Last Admin: 03/25/17 10:11 Dose: 325 mg Folic Acid (Folic Acid) 1 mg PO DAILY [facility] Last Admin: 03/25/17 10:10 Dose: 1 mg Heparin Sodium (Porcine) (Heparin) 5,000 units SC Q8 [facility] Last Admin: 03/25/17 06:12 Dose: Not Given Home Med (Memantine Hcl/Donepezil Hcl [Namzaric 7 Mg-10 Mg Capsule]) 1 each PO DAILY [facility] Hydrochlorothiazide (Microzide) 12.5 mg PO DAILY [facility] Last Admin: 03/25/17 10:09 Dose: 12.5 mg Piperacillin Sod/Tazobactam (Sod 2.25 gm/ Sodium Chloride) 100 mls @ 200 mls/ hr IVPB Q8H [facility] Last Admin: 03/25/17 10:09 Dose: 200 mls/hr Daptomycin 240 mg/ Sodium (Chloride) 100 mls @ 100 mls/hr IV Q48H [facility] Stop: 03/29/17 10:31 Last Admin: 03/24/17 10:15 Dose: 100 mls/hr Metoprolol Tartrate (Lopressor) 25 mg PO DAILY [facility] Last Admin: 03/25/17 10:10 Dose: 25 mg Topiramate (Topamax) 25 mg PO BID [facility] Last Admin: 03/24/17 18:00 Dose: 25 mg Zinc Sulfate (Zinc Sulfate 220 Mg Cap) 220 mg PO DAILY [facility] Last Admin: 03/25/17 10:10 Dose: 220 mg - Labs Labs: 03/25/17 06:59 03/25/17 06:59 PT 12.5 SECONDS (9.7-12.2) H 03/23/17 13:14 INR 1.1 03/23/17 13:14 APTT 32 SECONDS (21-34) 03/23/17 13:14 - Constitutional Appears: No Acute Distress, Confused, Chronically Ill - Extremities Exam Additional comments: lower extremity focused exam: Vasc: DP and PT pulses non-palpable b/l Neuro: unable to assess Ortho: Pain on palpation to right and left lower extremity Derm: Open ulceration noted circumferentially around the left ankle with sanguineous drainage, no malodor, no purulence noted. Open ulceration measuring approxiametly 2 cm by 2cm with a granular base to the right heel, with sanguineous drainage, no malodor, no purulence noted - Neurological Exam Neurological Exam: Awake - Psychiatric Exam Psychiatric exam: Normal Affect Assessment and Plan - Assessment and Plan (Free Text) Assessment: 86 year old female with left ankle ulcer, and right heel pressure ulcer Plan: pt examined and evaluated discussed with attending, Dr. Pierson chart, labs, vitals reviewed wound culture of left ankle-pseudomonas, staph aureus left and right LE cleansed with normal sterile saline left ankle dressed with xeroform, 4x4, ABD, kerlix right heel dressed with xeroform,ABD, kerlix daily dressings by podiatry [facility] bone scan-IMPRESSION:Findings most compatible with degenerative uptake at the 1st metatarsophalangeal joint left foot as well cellulitis of the hind foot and ankle soft tissues. No definitive pattern suggest osteomyelitis at this time. Further characterization can provided by MRI as clinically warranted. podiatry will continue to follow patient while in house
--- NOTE | 2017-03-25 13:39 | CP.PCM.PN ---
Subjective - Date & Time of Evaluation Date of Evaluation: 03/25/17 Time of Evaluation: 13:39 - Subjective Subjective: CHIEF COMPLAINTS TODAY : AFEBRILE PATIENT RESTING COMFORTABLY Daughter at bedside. 3 PHASE BONE SCAN. -VE OSTEOMYLITIS +ve cellulitis hindfoot/ankle soft tissue ROS - NA-on observation only HEENT : N. Resp : No SOB wheezing, cough Cardio : No CP, PND orthopnea GI : No abd. 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 Musculoskel : N Ext. : Pedal pulses WEAK no edema or calf pain B/L FEET IN DRESSINGS C/D/I Derm : N Psych : N. PE. Pt. is RESTING, in no distress. V.S As noted in the chart Head ,ear nose,throat and eyes : Normal. Neck : Supple with normal carotids. Lungs: Clear air entry. Heart : S1 & S2 normal . . No murmur. S4 + Abd : Soft non tender with normal bowel sounds. Neuro : PATIENT CONTRACTED WITH wasting of MUSCLES/LE bILATERAL FEET AND ANKLE IN DRESSING Ext : bilateral feet in dressing, BONES AND TENDONS VISIBLE BOTH FEET, Neg. calf tenderness Derm : No rashes Radiology/Labs . REVIEWED WOUND CULTURE+ve staph aureus/ Pseudomonas origin Asssessment : IMPRESSION: LEFT ANKLE INFECTED ULCER /CELLULITIS. RIGHT HEEL PRESSURE ULCER -STAGE 2 RENAL INSUFFICIENCY. ANEMIA. HYPERTENSION. DEMENTIA. PLAN; CONTINUE iv ZOSYN 2.25 EVERY 8 HOURLY .03/23/17. START iv DAPTOMYCIN 4 MG/KG iv PIGGYBACK EVERY 48 HOURLY FOR MRSA/STREP COVERAGE.03/23/17 PATIENT GOT ONE DOSE OF VANCOMYCIN BUT HAS CHRONIC RENAL INSUFFICIENCY. wE'LL HOLD OFF NEPHROTOXIC DRUGS WERE NOW. PTS DAUGHTER DOES NOT WANT SUBACUTE REHABILITATION,AND DOES NOT WANT picc LINE HER MOTHER PULLED IT OUT LAST TIME. IF SO, PATIENT CAN BE SWITCHED TO CIPRO 250 MG OD/AND BY MOUTH cLEOCIN 300 MG 3 TIMES A DAY FOR 10 DAYS ON 03/30/17Thursday. WOUND CARE PER DR ARCINIEGA/ DR PEREZ. WILL DISCUSS W PMD. I WILL BE AWAY FROM 03/26 TO 04/12/17. CALL ID IF NEEDED . DR DENTON COVERING. Objective - Vital Signs/Intake and Output Vital Signs (last 24 hours): Temp Pulse Resp BP Pulse Ox 98.7 F 85 20 130/72 96 03/25/17 08:00 03/25/17 10:03 03/25/17 08:00 03/25/17 10:10 03/25/17 10:03 Intake and Output: 03/25/17 03/25/17 06:59 18:59 Intake Total 50 Output Total 0 Balance 50 - Medications Medications: Current Medications Escitalopram Oxalate (Lexapro) 5 mg PO [facility] Last Admin: 03/24/17 22:19 Dose: 5 mg Ferrous Sulfate (Feosol) 325 mg PO DAILY [facility] Last Admin: 03/25/17 10:11 Dose: 325 mg Folic Acid (Folic Acid) 1 mg PO DAILY [facility] Last Admin: 03/25/17 10:10 Dose: 1 mg Heparin Sodium (Porcine) (Heparin) 5,000 units SC Q8 [facility] Last Admin: 03/25/17 06:12 Dose: Not Given Home Med (Memantine Hcl/Donepezil Hcl [Namzaric 7 Mg-10 Mg Capsule]) 1 each PO DAILY [facility] Hydrochlorothiazide (Microzide) 12.5 mg PO DAILY [facility] Last Admin: 03/25/17 10:09 Dose: 12.5 mg Piperacillin Sod/Tazobactam (Sod 2.25 gm/ Sodium Chloride) 100 mls @ 200 mls/ hr IVPB Q8H [facility] Last Admin: 03/25/17 10:09 Dose: 200 mls/hr Daptomycin 240 mg/ Sodium (Chloride) 100 mls @ 100 mls/hr IV Q48H [facility] Stop: 03/29/17 10:31 Last Admin: 03/24/17 10:15 Dose: 100 mls/hr Metoprolol Tartrate (Lopressor) 25 mg PO DAILY [facility] Last Admin: 03/25/17 10:10 Dose: 25 mg Topiramate (Topamax) 25 mg PO BID [facility] Last Admin: 03/25/17 10:08 Dose: 25 mg Zinc Sulfate (Zinc Sulfate 220 Mg Cap) 220 mg PO DAILY [facility] Last Admin: 03/25/17 10:10 Dose: 220 mg - Labs Labs: 03/25/17 06:59 03/25/17 06:59 PT 12.5 SECONDS (9.7-12.2) H 03/23/17 13:14 INR 1.1 03/23/17 13:14 APTT 32 SECONDS (21-34) 03/23/17 13:14 Assessment and Plan (1) Foot ulcer Status: Acute (2) Renal insufficiency Status: Acute (3) Anemia Status: Acute (4) HTN (hypertension) Status: Acute (5) Dementia Status: Acute
[2017-03-25 19:41] LABS: POTASSIUM 3.9 mmol/L (3.6-5.2)
[2017-03-25 19:45] LABS: CALCIUM 8.6 mg/dl (8.6-10.4)
[2017-03-26] MEDS: Piperacillin/Tazobact 2.25 GM in Sodium Chloride 100 ML IVPB SCH ×3 (02:29→18:13)
--- NOTE | 2017-03-26 07:18 | PN ---
DATE: 03/25/2017 SUBJECTIVE: Today, the patient is somewhat sleepy and easily arousable but confused. The patient does not show any shortness of breath. PHYSICAL EXAMINATION: GENERAL: The patient is somewhat stiff. VITAL SIGNS: The patient has a blood pressure of 118/75, pulse 85, respirations 20, temperature 98.7. NECK: There is some stiffness, which is all. LUNGS: Clear, but there is poor air entry. HEART: Regular rate and rhythm. ABDOMEN: Soft. EXTREMITIES: There is some contracture of the knees. Evaluation of the legs has shown that there is an ulcer on the left leg, which is infected and also there is cellulitis on the periphery of the ulcer with twisted left ankle. NEUROLOGIC: As I mentioned, the patient is wheelchair bound and disoriented. LABORATORY DATA: The patient had blood tests done. WBC is 5.7, hemoglobin is 8, hematocrit 24.6, and platelet is 313. Chemistries showed that sodium is 142, potassium 4, chloride 109, bicarb is 24, BUN 17, and creatinine is 1.4. A bone scan done that has shown cellulitis to the leg. There is no suspicious calcaneal *------* pattern suggesting osteomyelitis. PLAN: We are going to continue antiplatelet therapy, and the case was discussed with Podiatry resident, who is going to do cleaning, dressing, and wound care for the patient. Jaquan Graf MD
[2017-03-26 07:45] LABS: BASO % 0.4 % (0.0-2.0); EOS # 0.3 K/uL (0.0-0.7); EOS % 4.1 % (0.0-4.0); HEMATOCRIT 24.1 % (34.0-47.0); LYMPH # 2.2 K/uL (1.0-4.3); MEAN CELL VOLUME 88.5 fL (81.0-99.0); MEAN CORPUSCULAR HEMOGLOBIN 28.4 pg (27.0-31.0); MEAN CORPUSCULAR HGB CONC 32.2 g/dL (33.0-37.0); MEAN PLATELET VOLUME 6.8 fL (7.2-11.7); MONO # 0.5 K/uL (0.0-0.8); MONO % 6.9 % (0.0-10.0); NRBC % 0.1 % (0.0-2.0); RED CELL DISTRIBUTION WIDTH 16.6 % (11.5-14.5); WHITE BLOOD COUNT 7.2 K/uL (4.8-10.8)
[2017-03-26 08:07] LABS: POTASSIUM 3.9 mmol/L (3.6-5.2)
[2017-03-26 08:10] LABS: CALCIUM 8.6 mg/dl (8.6-10.4)
--- NOTE | 2017-03-26 12:59 | CP.PCM.PN ---
Subjective - Date & Time of Evaluation Date of Evaluation: 03/26/17 Time of Evaluation: 12:57 - Subjective Subjective: 86 year old female was seen at bedside resting comfortably this morning regarding left ankle ulcer and right heel ulcer. Patient NAD. Objective - Vital Signs/Intake and Output Vital Signs (last 24 hours): Temp Pulse Resp BP Pulse Ox 97.4 F L 82 20 102/72 100 03/26/17 09:04 03/26/17 09:04 03/26/17 09:04 03/26/17 09:28 03/26/17 09:04 Intake and Output: 03/26/17 03/26/17 06:59 18:59 Intake Total 340 Balance 340 - Medications Medications: Current Medications Escitalopram Oxalate (Lexapro) 5 mg PO HS [facility] Last Admin: 03/25/17 21:37 Dose: 5 mg Ferrous Sulfate (Feosol) 325 mg PO DAILY [facility] Last Admin: 03/26/17 09:27 Dose: 325 mg Folic Acid (Folic Acid) 1 mg PO DAILY [facility] Last Admin: 03/26/17 09:28 Dose: 1 mg Heparin Sodium (Porcine) (Heparin) 5,000 units SC Q8 [facility] Last Admin: 03/26/17 05:32 Dose: 5,000 units Home Med (Memantine Hcl/Donepezil Hcl [Namzaric 7 Mg-10 Mg Capsule]) 1 each PO DAILY [facility] Hydrochlorothiazide (Microzide) 12.5 mg PO DAILY [facility] Last Admin: 03/26/17 09:27 Dose: Not Given Piperacillin Sod/Tazobactam (Sod 2.25 gm/ Sodium Chloride) 100 mls @ 200 mls/ hr IVPB Q8H [facility] Last Admin: 03/26/17 02:29 Dose: 200 mls/hr Daptomycin 240 mg/ Sodium (Chloride) 100 mls @ 100 mls/hr IV Q48H [facility] Stop: 03/29/17 10:31 Last Admin: 03/26/17 09:56 Dose: 100 mls/hr Metoprolol Tartrate (Lopressor) 25 mg PO DAILY [facility] Last Admin: 03/26/17 09:28 Dose: 25 mg Topiramate (Topamax) 25 mg PO BID [facility] Last Admin: 03/26/17 09:27 Dose: 25 mg Zinc Sulfate (Zinc Sulfate 220 Mg Cap) 220 mg PO DAILY [facility] Last Admin: 03/26/17 09:27 Dose: 220 mg - Labs Labs: 03/26/17 07:07 03/26/17 07:13 PT 12.5 SECONDS (9.7-12.2) H 03/23/17 13:14 INR 1.1 03/23/17 13:14 APTT 32 SECONDS (21-34) 03/23/17 13:14 - Constitutional Appears: No Acute Distress - Extremities Exam Additional comments: lower extremity focused exam: Vasc: DP and PT pulses non-palpable b/l Neuro: unable to assess Ortho: Pain on palpation to right and left lower extremity, L>R Derm: Open ulceration noted circumferentially around the left ankle with sanguineous drainage, no malodor, no purulence noted. Open ulceration measuring approximately 2 cm by 2cm with a granular base to the right heel, with sanguineous drainage, no malodor, no purulence noted - Neurological Exam Neurological Exam: Awake Assessment and Plan - Assessment and Plan (Free Text) Assessment: 86 year old female with left ankle ulcer, and right heel pressure ulcer Plan: pt examined and evaluated discussed with attending, Dr. Pierson chart, labs, [facility]-IMPRESSION:Findings most compatible with degenerative uptake at the 1st metatarsophalangeal joint left foot as well cellulitis of the hind foot and ankle soft tissues. No definitive pattern suggest osteomyelitis at this time. Further characterization can provided by MRI as clinically warranted. podiatry will continue to follow patient while in house wound culture of left ankle-pseudomonas, staph aureus left and right LE cleansed with normal sterile saline left ankle dressed with xeroform, 4x4, ABD, kerlix right heel dressed with xeroform,ABD, kerlix daily dressings by podiatry patient stable for d/c per podiatry podiatry will continue to follow patient while in house
--- NOTE | 2017-03-27 00:02 | PN ---
DATE: SUBJECTIVE: Today, the patient is as her usual state of health, is somewhat sleepy, but easily arousable and not quite cooperative and confused. PHYSICAL EXAMINATION: VITAL SIGNS: The blood pressure is 118/65, pulse is 87, respirations 20 and temperature 97.8. NECK: There is some stiffness, which is all. LUNGS: Poor inspiratory effort. HEART: Regular rate and rhythm. Positive extrasystole. Positive murmur. ABDOMEN: Soft. EXTREMITIES: There is ulcer of the left lower extremity and redness and previously noted ulcer secondary to cellulitis. LABORATORY DATA: Shows WBC is 7.2, hemoglobin 7.8, hematocrit 24.1 and platelet is 204. Chemistry showed a sodium 141, potassium 3.9, chloride 109, BUN 18, creatinine 1.4, bicarb 24 and calcium 8.6. PLAN: The plan is that we are going to continue antiplatelet therapy as per ID and wound care, so we will proceed sending the patient to TCU if family is agree with. The case was discussed and reviewed with Umu Medeiros, the nurse practitioner. Jaquan Graf MD
[2017-03-27] MEDS: Piperacillin/Tazobact 2.25 GM in Sodium Chloride 100 ML IVPB SCH ×3 (03:20→18:10)
[2017-03-27 07:18] LABS: BASO % 0.6 % (0.0-2.0); EOS # 0.4 K/uL (0.0-0.7); EOS % 6.2 % (0.0-4.0); HEMATOCRIT 24.2 % (34.0-47.0); LYMPH # 2.6 K/uL (1.0-4.3); LYMPH % 43.9 % (20.0-40.0); MEAN CELL VOLUME 87.8 fL (81.0-99.0); MEAN CORPUSCULAR HEMOGLOBIN 28.6 pg (27.0-31.0); MEAN CORPUSCULAR HGB CONC 32.5 g/dL (33.0-37.0); MEAN PLATELET VOLUME 6.7 fL (7.2-11.7); MONO # 0.4 K/uL (0.0-0.8); MONO % 6.6 % (0.0-10.0); RED CELL DISTRIBUTION WIDTH 16.6 % (11.5-14.5); WHITE BLOOD COUNT 5.9 K/uL (4.8-10.8)
[2017-03-27 07:47] LABS: POTASSIUM 3.9 mmol/L (3.6-5.2)
[2017-03-27 07:50] LABS: CALCIUM 8.6 mg/dl (8.6-10.4)
--- NOTE | 2017-03-27 12:56 | CP.PCM.PN ---
Subjective - Date & Time of Evaluation Date of Evaluation: 03/27/17 Time of Evaluation: 10:35 - Subjective Subjective: Podiatry progress note for Dr. Pierson 86 year old female was seen at bedside resting comfortably this morning regarding left ankle ulcer and right heel ulcer. Patient in NAD. Patient unable to state if she is in any pain at this time due to altered mental status secondary to dementia. Objective - Vital Signs/Intake and Output Vital Signs (last 24 hours): Temp Pulse Resp BP Pulse Ox 98.2 F 78 20 125/65 98 03/26/17 23:31 03/26/17 23:31 03/26/17 23:31 03/27/17 09:59 03/26/17 23:31 - Medications Medications: Current Medications Donepezil HCl (Aricept) 10 mg PO HS [facility] Escitalopram Oxalate (Lexapro) 5 mg PO HS [facility] Last Admin: 03/26/17 21:44 Dose: 5 mg Ferrous Sulfate (Feosol) 325 mg PO DAILY [facility] Last Admin: 03/27/17 09:51 Dose: 325 mg Folic Acid (Folic Acid) 1 mg PO DAILY [facility] Last Admin: 03/27/17 09:50 Dose: 1 mg Heparin Sodium (Porcine) (Heparin) 5,000 units SC Q8 [facility] Last Admin: 03/27/17 05:43 Dose: 5,000 units Hydrochlorothiazide (Microzide) 12.5 mg PO DAILY [facility] Last Admin: 03/27/17 09:50 Dose: 12.5 mg Piperacillin Sod/Tazobactam (Sod 2.25 gm/ Sodium Chloride) 100 mls @ 200 mls/ hr IVPB Q8H [facility] Last Admin: 03/27/17 10:00 Dose: 200 mls/hr Daptomycin 240 mg/ Sodium (Chloride) 100 mls @ 100 mls/hr IV Q48H [facility] Stop: 03/29/17 10:31 Last Admin: 03/26/17 09:56 Dose: 100 mls/hr Memantine (Namenda) 5 mg PO DAILY [facility] Last Admin: 03/27/17 09:53 Dose: 5 mg Metoprolol Tartrate (Lopressor) 25 mg PO DAILY [facility] Last Admin: 03/27/17 09:59 Dose: 25 mg Topiramate (Topamax) 25 mg PO BID [facility] Last Admin: 03/27/17 09:50 Dose: 25 mg Zinc Sulfate (Zinc Sulfate 220 Mg Cap) 220 mg PO DAILY [facility] Last Admin: 03/27/17 09:51 Dose: 220 mg - Labs Labs: 03/27/17 07:10 03/27/17 07:10 PT 12.5 SECONDS (9.7-12.2) H 03/23/17 13:14 INR 1.1 03/23/17 13:14 APTT 32 SECONDS (21-34) 03/23/17 13:14 - Constitutional Appears: Well, Non-toxic, No Acute Distress - Extremities Exam Additional comments: lower extremity focused exam: Vasc: DP and PT pulses non-palpable B/L Neuro: unable to assess due to patient's mental status Ortho: Pain on palpation to right and left lower extremity, L>R. Rigid contractures noted to bilateral lower extremities. Derm: Open ulceration noted circumferentially around the left ankle with sanguinous drainage, mild malodor, no purulence noted. Open ulceration measuring approximately 2 cm by 2cm with a granular base to the right heel, with sanguineous drainage, no malodor, no purulence noted - Neurological Exam Neurological Exam: Alert, Altered, Awake - Psychiatric Exam Psychiatric exam: Normal Affect, Normal Mood Assessment and Plan - Assessment and Plan (Free Text) Assessment: 86 year old female with left ankle ulcer and right heel pressure ulcer Plan: Pt examined and evaluated Discussed plan with attending, Dr. Pierson chart, labs, vitals reviewed - afebrile, WBC 5.9 Podiatry will continue to follow patient while in house left and right LE cleansed with normal sterile saline left ankle dressed with xeroform, 4x4, ABD, kerlix right heel dressed with xeroform,ABD, kerlix Daily dressings to be done by podiatry patient stable for d/c per podiatry podiatry will continue to follow patient while in house
[2017-03-27] MEDS: Ferric Sodium Gluconat Complex 62.5 mg/5 ml Vial IVPB SCH (17:30)
--- NOTE | 2017-03-27 17:53 | PN ---
DATE: SUBJECTIVE: Today, the patient is alert and is awake, but confused and in no apparent distress. Patient not able to give much information. PHYSICAL EXAMINATION: VITAL SIGNS: Blood pressure 135/65, pulse 78, respirations 20, and temperature 98.2. NECK: There is some stiffness in the neck. LUNGS: Clear, but some poor inspiratory effort. HEART: Regular rate and rhythm. Positive murmur. ABDOMEN: Soft. Positive bowel sounds. 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 LABORATORY DATA: The patient's blood tests: WBC 5.9, hemoglobin 7.9, hematocrit 24.2, and platelets 319. Chemistry: Sodium 141, potassium 3.9, chloride 108, bicarbonate 24, BUN 16, and creatinine 1.4. PLAN: We are going to start the patient on IV iron and continue to monitor the H and H. The patient is to continue antiplatelet therapy. Jaquan Graf MD
[2017-03-28] MEDS: Piperacillin/Tazobact 2.25 GM in Sodium Chloride 100 ML IVPB SCH ×3 (02:52→18:17)
[2017-03-28 08:29] LABS: BASO % 0.5 % (0.0-2.0); EOS # 0.3 K/uL (0.0-0.7); EOS % 5.3 % (0.0-4.0); HEMATOCRIT 24.7 % (34.0-47.0); LYMPH # 2.1 K/uL (1.0-4.3); LYMPH % 32.6 % (20.0-40.0); MEAN CELL VOLUME 88.5 fL (81.0-99.0); MEAN CORPUSCULAR HEMOGLOBIN 29.2 pg (27.0-31.0); MEAN PLATELET VOLUME 6.9 fL (7.2-11.7); MONO # 0.5 K/uL (0.0-0.8); MONO % 7.2 % (0.0-10.0); RED CELL DISTRIBUTION WIDTH 16.5 % (11.5-14.5); WHITE BLOOD COUNT 6.4 K/uL (4.8-10.8)
[2017-03-28 08:46] LABS: POTASSIUM 4.1 mmol/L (3.6-5.2)
[2017-03-28 08:49] LABS: ALB/GLOB RATIO 0.8 (1.0-2.1); BILIRUBIN,TOTAL 0.4 mg/dL (0.2-1.3); TOTAL PROTEIN 6.6 g/dL (6.3-8.3)
--- NOTE | 2017-03-28 09:05 | CP.PCM.PN ---
Subjective - Date & Time of Evaluation Date of Evaluation: 03/28/17 Time of Evaluation: 09:04 - Subjective Subjective: pt seen for continued tx of ulcers of ankle left and heel right. Objective - Vital Signs/Intake and Output Vital Signs (last 24 hours): Temp Pulse Resp BP Pulse Ox 98.0 F 73 20 115/55 L 95 03/28/17 08:17 03/28/17 08:17 03/28/17 08:17 03/28/17 08:17 03/28/17 08:17 - Medications Medications: Current Medications Donepezil HCl (Aricept) 10 mg PO HS [facility] Last Admin: 03/27/17 22:01 Dose: 10 mg Escitalopram Oxalate (Lexapro) 5 mg PO HS [facility] Last Admin: 03/27/17 22:01 Dose: 5 mg Ferric Sodium Gluconate Complex (Ferrlecit) 125 mg IVPB DAILY [facility] Stop: 04/04/17 17:01 Last Admin: 03/27/17 17:30 Dose: 125 mg Folic Acid (Folic Acid) 1 mg PO DAILY [facility] Last Admin: 03/27/17 09:50 Dose: 1 mg Heparin Sodium (Porcine) (Heparin) 5,000 units SC Q8 [facility] Last Admin: 03/28/17 05:29 Dose: 5,000 units Hydrochlorothiazide (Microzide) 12.5 mg PO DAILY [facility] Last Admin: 03/27/17 09:50 Dose: 12.5 mg Piperacillin Sod/Tazobactam (Sod 2.25 gm/ Sodium Chloride) 100 mls @ 200 mls/ hr IVPB Q8H [facility] Last Admin: 03/28/17 02:52 Dose: 200 mls/hr Daptomycin 240 mg/ Sodium (Chloride) 100 mls @ 100 mls/hr IV Q48H [facility] Stop: 03/29/17 10:31 Last Admin: 03/26/17 09:56 Dose: 100 mls/hr Memantine (Namenda) 5 mg PO DAILY [facility] Last Admin: 03/27/17 09:53 Dose: 5 mg Metoprolol Tartrate (Lopressor) 25 mg PO DAILY [facility] Last Admin: 03/27/17 09:59 Dose: 25 mg Topiramate (Topamax) 25 mg PO BID [facility] Last Admin: 03/27/17 18:09 Dose: 25 mg Zinc Sulfate (Zinc Sulfate 220 Mg Cap) 220 mg PO DAILY [facility] Last Admin: 03/27/17 09:51 Dose: 220 mg - Labs Labs: 03/28/17 08:15 03/28/17 08:15 PT 12.5 SECONDS (9.7-12.2) H 03/23/17 13:14 INR 1.1 03/23/17 13:14 APTT 32 SECONDS (21-34) 03/23/17 13:14
[2017-03-28] MEDS: Ferric Sodium Gluconat Complex 62.5 mg/5 ml Vial IVPB SCH (10:29)
--- NOTE | 2017-03-28 15:47 | CP.PCM.PN ---
Subjective - Date & Time of Evaluation Date of Evaluation: 03/28/17 Time of Evaluation: 08:45 - Subjective Subjective: Podiatry progress note for Dr. Pierson 86 year old female was seen at bedside with attending Dr. Pierson regarding left ankle ulcer and right heel ulcer. Patient appears to be resting comfortably in her bed. Patient in NAD. Patient unable to state if she is in any pain at this time due to altered mental status secondary to dementia. Objective - Vital Signs/Intake and Output Vital Signs (last 24 hours): Temp Pulse Resp BP Pulse Ox 98.0 F 73 20 114/68 95 03/28/17 08:17 03/28/17 08:17 03/28/17 08:17 03/28/17 10:44 03/28/17 08:17 Intake and Output: 03/28/17 03/28/17 06:59 18:59 Intake Total 700 Output Total 1 Balance 699 - Medications Medications: Current Medications Donepezil HCl (Aricept) 10 mg PO HS [facility] Last Admin: 03/27/17 22:01 Dose: 10 mg Escitalopram Oxalate (Lexapro) 5 mg PO HS [facility] Last Admin: 03/27/17 22:01 Dose: 5 mg Ferric Sodium Gluconate Complex (Ferrlecit) 125 mg IVPB DAILY [facility] Stop: 04/04/17 17:01 Last Admin: 03/28/17 10:29 Dose: 125 mg Folic Acid (Folic Acid) 1 mg PO DAILY [facility] Last Admin: 03/28/17 09:50 Dose: 1 mg Heparin Sodium (Porcine) (Heparin) 5,000 units SC Q8 [facility] Last Admin: 03/28/17 14:09 Dose: 5,000 units Hydrochlorothiazide (Microzide) 12.5 mg PO DAILY [facility] Last Admin: 03/28/17 09:50 Dose: 12.5 mg Piperacillin Sod/Tazobactam (Sod 2.25 gm/ Sodium Chloride) 100 mls @ 200 mls/ hr IVPB Q8H [facility] Last Admin: 03/28/17 10:39 Dose: 200 mls/hr Daptomycin 240 mg/ Sodium (Chloride) 100 mls @ 100 mls/hr IV Q48H [facility] Stop: 03/29/17 10:31 Last Admin: 03/28/17 10:37 Dose: 100 mls/hr Memantine (Namenda) 5 mg PO DAILY [facility] Last Admin: 03/28/17 09:51 Dose: 5 mg Metoprolol Tartrate (Lopressor) 25 mg PO DAILY [facility] Last Admin: 03/28/17 09:49 Dose: 25 mg Topiramate (Topamax) 25 mg PO BID [facility] Last Admin: 03/28/17 10:29 Dose: 25 mg Zinc Sulfate (Zinc Sulfate 220 Mg Cap) 220 mg PO DAILY [facility] Last Admin: 03/28/17 09:49 Dose: 220 mg - Labs Labs: 03/28/17 08:15 03/28/17 08:15 PT 12.5 SECONDS (9.7-12.2) H 03/23/17 13:14 INR 1.1 03/23/17 13:14 APTT 32 SECONDS (21-34) 03/23/17 13:14 - Constitutional Appears: Well, Non-toxic, No Acute Distress - Extremities Exam Additional comments: Vasc: DP and PT pulses non-palpable B/L Derm: Open ulceration noted circumferentially around the left ankle with sanguinous drainage, mild malodor, no purulence noted. Open ulceration measuring approximately 2 cm by 2cm with a granular base to the right heel, with sanguineous drainage, no malodor, no purulence noted Neuro: unable to assess due to patient's mental status Ortho: Pain on palpation to right and left lower extremity, L>R. Rigid contractures noted to bilateral lower extremities. - Neurological Exam Neurological Exam: Alert, Awake, Oriented x3 - Psychiatric Exam Psychiatric exam: Normal Affect, Normal Mood Assessment and Plan - Assessment and Plan (Free Text) Assessment: 86 year old female with left ankle ulcer and right heel pressure ulcer Plan: Pt examined and evaluated with attending Dr. Pierson chart, labs, vitals reviewed - afebrile, WBC 6.4 left ankle dressed with xeroform, 4x4, ABD, kerlix right heel dressed with xeroform,ABD, kerlix Daily dressings to be done by podiatry patient stable for d/c per podiatry podiatry will continue to follow patient while in house
[2017-03-28 19:36] LABS: POTASSIUM 4.2 mmol/L (3.6-5.2)
[2017-03-28 19:40] LABS: CALCIUM 8.7 mg/dl (8.6-10.4)
[2017-03-29] MEDS: Piperacillin/Tazobact 2.25 GM in Sodium Chloride 100 ML IVPB SCH ×3 (02:58→18:24)
[2017-03-29] MEDS: Ferric Sodium Gluconat Complex 62.5 mg/5 ml Vial IVPB SCH (09:09)
--- NOTE | 2017-03-29 17:25 | CP.PCM.PN ---
Subjective - Date & Time of Evaluation Date of Evaluation: 03/29/17 Time of Evaluation: 08:15 - Subjective Subjective: Podiatry progress note for Dr. Pierson 86 year old female was seen at bedside regarding left ankle ulcer and right heel ulcer. Patient appears to be resting comfortably in her bed. Patient in NAD. Patient unable to state if she is in any pain at this time due to altered mental status secondary to dementia. Objective - Vital Signs/Intake and Output Vital Signs (last 24 hours): Temp Pulse Resp BP Pulse Ox 97.6 F 68 20 143/68 97 03/29/17 16:00 03/29/17 16:00 03/29/17 16:00 03/29/17 16:00 03/29/17 16:00 Intake and Output: 03/29/17 03/29/17 06:59 18:59 Intake Total 440 Balance 440 - Medications Medications: Current Medications Donepezil HCl (Aricept) 10 mg PO HS [facility] Last Admin: 03/28/17 21:58 Dose: 10 mg Escitalopram Oxalate (Lexapro) 5 mg PO [facility] Last Admin: 03/28/17 21:58 Dose: 5 mg Ferric Sodium Gluconate Complex (Ferrlecit) 125 mg IVPB DAILY [facility] Stop: 04/04/17 17:01 Last Admin: 03/29/17 09:09 Dose: 125 mg Folic Acid (Folic Acid) 1 mg PO DAILY [facility] Last Admin: 03/29/17 09:12 Dose: 1 mg Hydrochlorothiazide (Microzide) 12.5 mg PO DAILY [facility] Last Admin: 03/29/17 09:14 Dose: 12.5 mg Piperacillin Sod/Tazobactam (Sod 2.25 gm/ Sodium Chloride) 100 mls @ 200 mls/ hr IVPB Q8H [facility] Last Admin: 03/29/17 11:00 Dose: 200 mls/hr Memantine (Namenda) 5 mg PO DAILY [facility] Last Admin: 03/29/17 09:29 Dose: 5 mg Metoprolol Tartrate (Lopressor) 25 mg PO DAILY [facility] Last Admin: 03/29/17 09:13 Dose: 25 mg Topiramate (Topamax) 25 mg PO BID [facility] Last Admin: 03/29/17 09:18 Dose: 25 mg Zinc Sulfate (Zinc Sulfate 220 Mg Cap) 220 mg PO DAILY [facility] Last Admin: 03/29/17 09:12 Dose: 220 mg - Labs Labs: 03/28/17 08:15 03/28/17 19:20 PT 12.5 SECONDS (9.7-12.2) H 03/23/17 13:14 INR 1.1 03/23/17 13:14 APTT 32 SECONDS (21-34) 03/23/17 13:14 - Constitutional Appears: Well, Non-toxic, No Acute Distress - Extremities Exam Additional comments: Vasc: DP and PT pulses non-palpable B/L Derm: Open ulceration noted circumferentially around the left ankle with sanguinous drainage, mild malodor, no purulence noted. Open ulceration measuring approximately 2 cm by 2cm with a granular base to the right heel, with sanguineous drainage, no malodor, no purulence noted Neuro: unable to assess due to patient's mental status Ortho: Pain on palpation to right and left lower extremity, L>R. Rigid contractures noted to bilateral lower extremities. - Neurological Exam Neurological Exam: Alert, Awake Assessment and Plan - Assessment and Plan (Free Text) Assessment: 86 year old female with left ankle ulcer and right heel pressure ulcer Plan: Patient examined and evaluated Patient discussed in details with attending Dr. Pierson chart, labs, vitals reviewed - afebrile, WBC 6.4 as of yesterday left ankle dressed with xeroform, 4x4, ABD, kerlix right heel dressed with xeroform,ABD, kerlix Daily dressings to be done by podiatry patient stable for d/c per podiatry podiatry will continue to follow patient while in house
--- NOTE | 2017-03-30 07:42 | PN ---
DATE: 03/28/2017 SUBJECTIVE: The patient is alert and awake, but slightly confused. The patient in his usual state of health and the patient is in no apparent distress. PHYSICAL EXAMINATION: VITAL SIGNS: Blood pressure is 114/68, pulse 93, respiration 20, temperature 98. HEENT: Head is normocephalic and atraumatic . LUNGS: Poor inspiratory effort. HEART: Regular rate and rhythm. ABDOMEN: Soft. Positive bowel sounds. EXTREMITIES: There is no evidence of ulcer to the left ankle or leg. LABORATORY DATA: Showed WBC of 6.4, hemoglobin 8.1, hematocrit 24.7, and platelets is 324. Chemistry: Sodium 141, potassium of 4.1, chloride 108, bicarb 23. PLAN: We plan to continue antiplatelet therapy and wound care . Jaquan Graf MD
[2017-03-30 08:06] LABS: BASO % 0.6 % (0.0-2.0); EOS # 0.2 K/uL (0.0-0.7); EOS % 3.7 % (0.0-4.0); HEMATOCRIT 26.3 % (34.0-47.0); LYMPH % 31.5 % (20.0-40.0); MEAN CELL VOLUME 88.8 fL (81.0-99.0); MEAN CORPUSCULAR HEMOGLOBIN 28.3 pg (27.0-31.0); MEAN CORPUSCULAR HGB CONC 31.9 g/dL (33.0-37.0); MONO # 0.4 K/uL (0.0-0.8); MONO % 6.8 % (0.0-10.0); NRBC % 0.1 % (0.0-2.0); RED CELL DISTRIBUTION WIDTH 16.5 % (11.5-14.5); WHITE BLOOD COUNT 6.5 K/uL (4.8-10.8)
[2017-03-30 08:39] LABS: POTASSIUM 4.1 mmol/L (3.6-5.2)
[2017-03-30 08:41] LABS: BILIRUBIN,TOTAL 0.3 mg/dL (0.2-1.3)
[2017-03-30 08:42] LABS: ALB/GLOB RATIO 0.8 (1.0-2.1); CALCIUM 9.1 mg/dl (8.6-10.4)
[2017-03-30 09:00] LABS: T4 8.28 ug/dL (5.5-11.0)
[2017-03-30 09:14] LABS: THYROID STIMULATING HORMONE 3.44 mIU/L (0.46-4.68)
--- NOTE | 2017-03-30 10:23 | PN ---
DATE: SUBJECTIVE: Today, the patient is alert and awake and not responding to questions appropriately and the patient is sometimes agitated when touched. PHYSICAL EXAMINATION: VITAL SIGNS: Blood pressure is 117/78, pulse 85, respirations 20, and temperature 98.2. HEENT: Head is normocephalic. Mouth is moist, but positive dental caries and positive toothless. LUNGS: Poor inspiratory effort, but no rales are noted. HEART: Regular rate and rhythm. Positive murmur. ABDOMEN: Soft. Positive bowel sounds. EXTREMITIES: There is ulcer at the ankle of the left foot, and the patient is . LABORATORY DATA: The patient's blood test is not done today. We are going to look at the blood work tomorrow. PLAN: The patient will be discharged after receiving course of antibiotic therapy and the patient will be on p.o. antibiotic, ampicillin. Dr. Pierson is also appreciated. Jaquan Graf MD
[2017-03-30] MEDS: Ferric Sodium Gluconat Complex 62.5 mg/5 ml Vial IVPB SCH (11:03)
--- NOTE | 2017-03-30 11:50 | CP.PCM.PN ---
Subjective - Date & Time of Evaluation Date of Evaluation: 03/30/17 Time of Evaluation: 11:50 - Subjective Subjective: PT SEEN BY DR. JOLLEY AND [employer] DURING ROUNDS . PT CLEARED FOR D/C HOME TODAY WITH THE DAUGHTER. LOCAL WOUND CARE TO BE CONTINUED DAILY. PT WILL NEED HOME VISITING NURSE FOR WOUND CARE 3 TIMES/WEEK AND THE DAUGHTER WILL HAVE TO BE TAUGHT BY HOME CARE HOW TO DO DRESSING CHANGES ON ALTERNATE DAYS (TWICE A WEEK) . CM TO NOTIFY PT'S DAUGHTER ABOUT D/C HOME TODAY AND SW TO ARRANGE TRANSPORT HOME. Objective - Vital Signs/Intake and Output Vital Signs (last 24 hours): Temp Pulse Resp BP Pulse Ox 98 F 86 18 117/63 97 03/30/17 00:33 03/30/17 00:33 03/30/17 00:33 03/30/17 11:04 03/30/17 00:33 - Medications Medications: Current Medications Donepezil HCl (Aricept) 10 mg PO HS [facility] Last Admin: 03/29/17 21:34 Dose: 10 mg Escitalopram Oxalate (Lexapro) 5 mg PO [facility] Last Admin: 03/29/17 21:34 Dose: 5 mg Ferric Sodium Gluconate Complex (Ferrlecit) 125 mg IVPB DAILY [facility] Stop: 04/04/17 17:01 Last Admin: 03/30/17 11:03 Dose: 125 mg Folic Acid (Folic Acid) 1 mg PO DAILY [facility] Last Admin: 03/30/17 11:05 Dose: 1 mg Hydrochlorothiazide (Microzide) 12.5 mg PO DAILY [facility] Last Admin: 03/30/17 11:04 Dose: 12.5 mg Memantine (Namenda) 5 mg PO DAILY [facility] Last Admin: 03/30/17 11:05 Dose: 5 mg Metoprolol Tartrate (Lopressor) 25 mg PO DAILY [facility] Last Admin: 03/30/17 11:04 Dose: 25 mg Topiramate (Topamax) 25 mg PO BID [facility] Last Admin: 03/30/17 11:04 Dose: 25 mg Zinc Sulfate (Zinc Sulfate 220 Mg Cap) 220 mg PO DAILY [facility] Last Admin: 03/30/17 11:04 Dose: 220 mg - Labs Labs: 03/30/17 07:49 03/30/17 07:49 PT 12.5 SECONDS (9.7-12.2) H 03/23/17 13:14 INR 1.1 03/23/17 13:14 APTT 32 SECONDS (21-34) 03/23/17 13:14
--- NOTE | 2017-03-30 16:02 | CP.PCM.PN ---
Subjective - Date & Time of Evaluation Date of Evaluation: 03/30/17 Time of Evaluation: 16:01 - Subjective Subjective: Podiatry progress note for Dr. Pierson 86 year old female was seen at bedside regarding left ankle ulcer and right heel ulcer. Patient in NAD. Objective - Vital Signs/Intake and Output Vital Signs (last 24 hours): Temp Pulse Resp BP Pulse Ox 98 F 86 18 117/63 97 03/30/17 00:33 03/30/17 00:33 03/30/17 00:33 03/30/17 11:04 03/30/17 00:33 Intake and Output: 03/30/17 03/30/17 06:59 18:59 Intake Total 500 Balance 500 - Medications Medications: Current Medications Donepezil HCl (Aricept) 10 mg PO HS [facility] Last Admin: 03/29/17 21:34 Dose: 10 mg Escitalopram Oxalate (Lexapro) 5 mg PO HS [facility] Last Admin: 03/29/17 21:34 Dose: 5 mg Ferric Sodium Gluconate Complex (Ferrlecit) 125 mg IVPB DAILY [facility] Stop: 04/04/17 17:01 Last Admin: 03/30/17 11:03 Dose: 125 mg Folic Acid (Folic Acid) 1 mg PO DAILY [facility] Last Admin: 03/30/17 11:05 Dose: 1 mg Hydrochlorothiazide (Microzide) 12.5 mg PO DAILY [facility] Last Admin: 03/30/17 11:04 Dose: 12.5 mg Memantine (Namenda) 5 mg PO DAILY [facility] Last Admin: 03/30/17 11:05 Dose: 5 mg Metoprolol Tartrate (Lopressor) 25 mg PO DAILY [facility] Last Admin: 03/30/17 11:04 Dose: 25 mg Topiramate (Topamax) 25 mg PO BID [facility] Last Admin: 03/30/17 11:04 Dose: 25 mg Zinc Sulfate (Zinc Sulfate 220 Mg Cap) 220 mg PO DAILY [facility] Last Admin: 03/30/17 11:04 Dose: 220 mg - Labs Labs: 03/30/17 07:49 03/30/17 07:49 PT 12.5 SECONDS (9.7-12.2) H 03/23/17 13:14 INR 1.1 03/23/17 13:14 APTT 32 SECONDS (21-34) 03/23/17 13:14 - Constitutional Appears: No Acute Distress, Confused, Chronically Ill - Extremities Exam Additional comments: Lower extremity focused exam: Vasc: DP and PT pulses non-palpable B/L Derm: Open ulceration noted circumferentially around the left ankle with sanguineous drainage, mild malodor, no purulence noted. Open ulceration measuring approximately 2 cm by 2cm with a granular base to the right heel, with sanguineous drainage, no malodor, no purulence noted Neuro: unable to assess due to patient's mental status Ortho: Pain on palpation to right and left lower extremity, L>R. Rigid contractures noted to bilateral lower extremities. - Neurological Exam Neurological Exam: Awake Assessment and Plan - Assessment and Plan (Free Text) Assessment: 86 year old female with left ankle ulcer and right heel pressure ulcer Plan: Patient examined and evaluated Patient discussed in details with attending Dr. Pierson chart, labs, vitals reviewed left ankle dressed with xeroform, 4x4 kerlix right heel dressed with xeroform, ABD, kerlix Daily dressings to be done by podiatry patient stable for d/c per podiatry podiatry will continue to follow patient while in house
[2017-03-30 17:05] VITALS: BP 126/68; PULSE 76; RESP 20; TEMP 97.5; O2SAT 95
--- NOTE | 2017-03-31 00:16 | PN ---
SUBJECTIVE: Today, the patient is more alert and awake, apparently pleasant, but is still not responding appropriately to question except with some few words. PHYSICAL EXAMINATION: VITAL SIGNS: The patient has a blood pressure of 123/68, pulse 76, respirations 20, temperature 97.5 and oxygen is 95%. NECK: As above. LUNGS: Clear. HEART: Regular rate and rhythm. ABDOMEN: Soft, nontender, no palpable mass. EXTREMITIES: There is an ulcer on the left leg and left foot. PLAN: The patient will be discharged home today, and we will follow this patient in the office and also the patient will be followed by Dr. Pierson. The case was reviewed and discussed with Griselda Dumont. Jaquan Graf MD
--- NOTE | 2017-03-31 18:25 | DS ---
This patient is an 86-year-old female with history of chronic leg edema, chronic ulcer and the patient has Alzheimer's dementia and arthritis. The patient was sent to emergency room by Dr. Pierson because the patient was found to have a cellulitis in the leg and ulcer that was infected. The patient had a consult with Dr. Ketan Youngblood and the patient had a bone scan done and that was negative for osteomyelitis and was positive for cellulitis. The patient was put on antibiotic therapy and also on other medications. The patient now is doing well. The cellulitis was resolved and at this point, the patient will be discharged home on Keflex as per the ID. We are going to follow this patient in the office and also dressing will be done 3 times a day by wound care. Jaquan Graf MD
== END 2017-03-30 17:18 | disposition home or self-care (01) | DRG 603 ==
LOC: C.ER 11:35 → C.9E 16:07 → C.3T 19:18
PROVIDERS: ADMIT Specialist; ATTEND Specialist
DX: L03.116 Cellulitis of left lower limb (principal); L97.329 Non-pressure chronic ulcer of left ankle with unspecified severity; G30.9 Alzheimer's disease, unspecified; F02.80 Dementia in other diseases classified elsewhere, unspecified severity, without behavioral disturbance, psychotic disturbance, mood disturbance, and anxiety; L89.619 Pressure ulcer of right heel, unspecified stage; B96.5 Pseudomonas (aeruginosa) (mallei) (pseudomallei) as the cause of diseases classified elsewhere; B95.61 Methicillin susceptible Staphylococcus aureus infection as the cause of diseases classified elsewhere; I12.9 Hypertensive chronic kidney disease with stage 1 through stage 4 chronic kidney disease, or unspecified chronic kidney disease; D64.9 Anemia, unspecified; N18.9 Chronic kidney disease, unspecified; E78.5 Hyperlipidemia, unspecified; M17.11 Unilateral primary osteoarthritis, right knee; Z99.3 Dependence on wheelchair; Z87.891 Personal history of nicotine dependence

== ENCOUNTER 2018-08-29 14:46 | Inpatient (IN) | payer MEDICARE, MEDICAID ==
--- NOTE | 2018-08-29 15:58 | C.PDOC ---
History Of Present Illness 87 year old female with a history of dementia presents to the emergency department accompanied by her family member with increased confusion today. Patient voices no complaints at this time, denies change in appetite, vomiting, and diarrhea. Time Seen by Provider: 08/29/18 15:09 Chief Complaint (Nursing): Altered Mental Status History Per: Patient, Family History/Exam Limitations: None Onset/Duration Of Symptoms: Hrs Current Symptoms Are (Timing): Still Present Associated Symptoms: denies: Fever, Chills, Not Eating, Not Drinking, Vomiting, Diarrhea Past Medical History Reviewed: Historical Data, Nursing Documentation, Vital Signs Vital Signs: Last Vital Signs Temp 98.3 F 08/29/18 15:15 Pulse 98 H 08/29/18 15:15 Resp 22 08/29/18 15:15 BP 117/52 L 08/29/18 15:15 Pulse Ox 100 08/29/18 15:15 - Medical History PMH: Alzheimer's Disease, Anemia, Arthritis (knees l>r), Dementia, HTN, Hypercholesterolemia, Rheumatoid Arthritis Denies: Chronic Kidney Disease Surgical History: No Surg Hx - [facility] Procedures ATRIAL CARDIOVERSION (04/12/15) CENTRAL VENOUS CATHETER PLACEMENT WITH GUIDANCE (09/25/14) INSERTION OF INFUSION DEV INTO SUP VENA CAVA, PERC APPROACH (06/11/16) Family History: States: No Known Family Hx - Social History Hx Tobacco Use: No Hx Alcohol Use: No Hx Substance Use: No - Immunization History Hx Tetanus Toxoid Vaccination: No Hx Influenza Vaccination: No Hx Pneumococcal Vaccination: No Review Of Systems Review Of Systems: ROS cannot be obtained secondary to pt's inabilty to answer questions. Physical Exam - Physical Exam Appears: Non-toxic, No Acute Distress Skin: Warm, Dry Head: Atraumatic, Normacephalic Eye(s): bilateral: Normal Inspection, PERRL, EOMI Oral Mucosa: Moist Neck: Normal, Supple Chest: Symmetrical, No Tenderness Cardiovascular: Rhythm Regular, No Murmur Respiratory: No Rales, No Rhonchi, No Wheezing Gastrointestinal/Abdominal: Soft, No Tenderness Extremity: Other (concracted extremities, ulcers to the feet bilaterally) Neurological/Psych: Oriented x3, Normal Speech, Normal Cognition ED Course And Treatment - Laboratory Results Result Diagrams: 08/29/18 15:41 08/29/18 15:41 Interpretation Of ECG: Sinus tachycardia at 108bpm, PAC, normal intervals, normal axis, no ST/T wave abnormalities. O2 Sat by Pulse Oximetry: 100 (RA) Pulse Ox Interpretation: Normal Medical Decision Making Medical Decision Making: Plan: CT Head EKG Chemistry CBC CXR Blood Culture Urine Culture Urinalysis Disposition Discussed With : Jaquan Graf Doctor Will See Patient In The: Hospital Counseled Patient/Family Regarding: Studies Performed, Diagnosis - Disposition Disposition: HOSPITALIZED Disposition Time: 18:47 Condition: FAIR Forms: [employer] (Amharic) - Clinical Impression Clinical Impression: Change in mental status, Hypernatremia, Dehydration - Scribe Statement The provider has reviewed the documentation as recorded by the Scribe (Dylan bishop) Provider Attestation: All medical record entries made by the Scribe were at my direction and personally dictated by me. I have reviewed the chart and agree that the record accurately reflects my personal performance of the history, physical exam, medical decision making, and the department course for this patient. I have also personally directed, reviewed, and agree with the discharge instructions and disposition.
[2018-08-29 16:00] LABS: BASO % 0.2 % (0.0-2.0); EOS % 0.1 % (0.0-4.0); LYMPH % 21.5 % (20.0-40.0); MEAN CELL VOLUME 87.5 fL (81.0-99.0); MEAN CORPUSCULAR HEMOGLOBIN 24.3 pg (27.0-31.0); MEAN CORPUSCULAR HGB CONC 27.8 g/dL (33.0-37.0); MEAN PLATELET VOLUME 7.9 fL (7.2-11.7); MONO # 0.4 K/uL (0.0-0.8); MONO % 4.4 % (0.0-10.0); NEUT % 73.8 % (50.0-75.0); NRBC % 0.5 % (0.0-2.0); RBC 2.86 Mil/uL (3.80-5.20); WHITE BLOOD COUNT 9.5 K/uL (4.8-10.8)
[2018-08-29 16:03] LABS: ALB/GLOB RATIO 0.8 (1.0-2.1); ALBUMIN 3.1 g/dL (3.5-5.0); CALCIUM 8.1 mg/dl (8.6-10.4)
[2018-08-29 16:18] LABS: TROPONIN I 0.072 ng/mL (0.00-0.120)
[2018-08-29 17:51] LABS: SQUAMOUS EPITHIAL 1 /hpf (0-5); URINE AMORPHOUS SEDIMENT FEW /ul (<OCC); URINE BACTERIA RARE (<OCC); URINE BILIRUBIN NEGATIVE (NEGATIVE); URINE BLOOD NEGATIVE (NEGATIVE); URINE CLARITY Hazy (Clear); URINE COLOR Yellow (YELLOW); URINE GLUCOSE (UA) NORMAL (Normal); URINE LEUKOCYTE ESTERASE NEG Leu/uL (Negative); URINE PROTEIN 1+ mg/dL (NEGATIVE)
[2018-08-29] MEDS ORDERED: Sodium Chloride 0.9% 1,000 ML IV ONE (18:20)
--- NOTE | 2018-08-29 18:44 | RAD ---
Chest x-ray single frontal view HISTORY: Shortness of breath. Comparison: 03/23/2017 Findings: Elevated left hemidiaphragm. Left basilar atelectasis. Mild venous congestion. Right hilar prominence. Cardiomegaly. Calcification at the aortic knob. Scoliotic curvature of the spine. Radiopaque calcification projects over the right upper abdomen. IVC filter in place. Impression: Elevated left hemidiaphragm. Left basilar atelectasis. Mild venous congestion. Right hilar prominence. Cardiomegaly. Calcification at the aortic knob. Scoliotic curvature of the spine. Radiopaque calcification projects over the right upper abdomen. IVC filter in place.
[2018-08-29 21:17] LABS: IRON 26 ug/dL (37-170)
[2018-08-29 21:26] LABS: % IRON SATURATION 15 (20-55); TOTAL IRON BINDING CAPACITY 174 ug/dL (250-450)
[2018-08-29] MEDS: Sodium Chloride 0.9% 1,000 ML IV SCH (21:49)
[2018-08-29] MEDS ORDERED: MethylPREDNISolone 40 mg Vial ONE (22:37)
[2018-08-30] MEDS: Sodium Chloride 0.9% 1,000 ML IV SCH (06:50)
--- NOTE | 2018-08-30 09:25 | CT ---
Date of service: 08/29/2018 PROCEDURE: CT HEAD WITHOUT CONTRAST. HISTORY: msc COMPARISON: None available. TECHNIQUE: Axial computed tomography images were obtained through the head/brain without intravenous contrast. Radiation dose: Total exam DLP = 1047.26 mGy-cm. This CT exam was performed using one or more of the following dose reduction techniques: Automated exposure control, adjustment of the mA and/or kV according to patient size, and/or use of iterative reconstruction technique. FINDINGS: HEMORRHAGE: No intracranial hemorrhage. BRAIN: Technically limited examination. Postsurgical changes. Large low-density area involving the right parietal region and temporal lobe extending into the right-sided high convexity compatible with encephalomalacia. Edema with underlying neoplasm is not definitively excluded. Recommend correlation with old examinations. VENTRICLES: Unremarkable. No hydrocephalus. CALVARIUM: Unremarkable. PARANASAL SINUSES: Unremarkable as visualized. No significant inflammatory changes. MASTOID AIR CELLS: Unremarkable as visualized. No inflammatory changes. OTHER FINDINGS: None. IMPRESSION: Technically limited examination. Postsurgical changes. Large low-density area involving the right parietal region and temporal lobe extending into the right-sided high convexity compatible with encephalomalacia. Edema with underlying neoplasm is not definitively excluded. Recommend correlation with old examinations.
[2018-08-30] MEDS ORDERED: MEMANTINE HCL PO SCH ×2 (10:00)
[2018-08-30] MEDS ORDERED: DONEPEZIL HCL PO SCH ×2 (10:00)
[2018-08-30 11:41] LABS: BASO % 0.2 % (0.0-2.0); EOS % 0.1 % (0.0-4.0); LYMPH # 1.4 K/uL (1.0-4.3); LYMPH % 22.6 % (20.0-40.0); MEAN CELL VOLUME 87.7 fL (81.0-99.0); MEAN CORPUSCULAR HEMOGLOBIN 27.3 pg (27.0-31.0); MEAN CORPUSCULAR HGB CONC 31.1 g/dL (33.0-37.0); MEAN PLATELET VOLUME 7.7 fL (7.2-11.7); MONO # 0.2 K/uL (0.0-0.8); MONO % 3.5 % (0.0-10.0); NEUT # 4.6 K/uL (1.8-7.0); NEUT % 73.6 % (50.0-75.0); RBC 3.65 Mil/uL (3.80-5.20); RED CELL DISTRIBUTION WIDTH 17.3 % (11.5-14.5); WHITE BLOOD COUNT 6.2 K/uL (4.8-10.8)
[2018-08-30 11:42] LABS: HEMOGLOBIN 9.9 g/dL (11.0-16.0)
[2018-08-30 12:14] LABS: ALB/GLOB RATIO 0.8 (1.0-2.1); ALBUMIN 2.9 g/dL (3.5-5.0); CALCIUM 7.6 mg/dl (8.6-10.4)
[2018-08-30] MEDS ORDERED: Sodium Chloride 0.9% 1,000 ML IV SCH (12:14)
--- NOTE | 2018-08-30 12:23 | RAD ---
Date of service: 08/29/2018 PROCEDURE: Radiographs of the left tibia and fibula. HISTORY: wound COMPARISON: None available. TECHNIQUE: Frontal and lateral views obtained. FINDINGS: BONES: Diffuse osteopenia. No evidence of acute osteomyelitis. JOINT SPACES: Unremarkable. OTHER FINDINGS: Underlying muscle atrophy is severe. IMPRESSION: No acute findings related to/ accounting for the clinical presentation.
--- NOTE | 2018-08-30 12:23 | RAD ---
Date of service: 08/29/2018 PROCEDURE: Left Foot Radiographs. HISTORY: wound COMPARISON: 03/23/2017 FINDINGS: BONES: Profound osteopenia. No acute fracture. No radiographic evidence of acute osteomyelitis. JOINTS: Degenerative changes throughout the visible left foot. These extend to the left ankle. SOFT TISSUES: Soft tissue structures are difficult to visualize. Limitations of the current study: Detail obscured by overlying fiberglass cast. OTHER FINDINGS: None. IMPRESSION: Profound osteopenia. Stable degenerative changes. No acute osseous findings. Overall, no significant interval change.
[2018-08-30] MEDS ORDERED: Dextrose 5%/0.9% NS 1,000 ML IV ONE (13:28)
--- NOTE | 2018-08-30 19:05 | CP.PCM.CON ---
History of Present Illness - History of Present Illness History of Present Illness: pt is seen and examined, full consult is dictated #[id number] Past Patient History - Past Medical History & Family History Past Medical History?: Yes - Past Social History Smoking Status: Former Smoker - CARDIAC Hx Hypercholesterolemia: Yes Hx Hypertension: Yes - PULMONARY Hx Respiratory Disorders: No Other/Comment: FORMER SMOKER - NEUROLOGICAL Hx Alzheimer's Disease: Yes Hx Dementia: Yes - HEENT Hx HEENT Problems: No - RENAL Hx Chronic Kidney Disease: No - ENDOCRINE/METABOLIC Hx Endocrine Disorders: No - HEMATOLOGICAL/ONCOLOGICAL Hx Anemia: Yes - INTEGUMENTARY Hx Dermatological Problems: Yes Other/Comment: LEFT FOOT WOUND - MUSCULOSKELETAL/RHEUMATOLOGICAL Hx Arthritis: Yes - GASTROINTESTINAL Hx Gastrointestinal Disorders: No - GENITOURINARY/GYNECOLOGICAL Hx Genitourinary Disorders: Yes Hx Incontinence: Yes - PSYCHIATRIC Hx Substance Use: No - SURGICAL HISTORY Hx Surgeries: No - ANESTHESIA Hx Anesthesia: Yes Hx Anesthesia Reactions: No Hx Malignant Hyperthermia: No Meds Allergies/Adverse Reactions: Allergies Allergy/AdvReac Type Severity Reaction Status Date / Time No Known Allergies Allergy Verified 03/23/17 11:41 - Medications Medications: Current Medications Clopidogrel Bisulfate (Plavix) 75 mg PO DAILY [facility] Last Admin: 08/30/18 10:44 Dose: 75 mg Escitalopram Oxalate (Lexapro) 5 mg PO HS [facility] Last Admin: 08/29/18 22:49 Dose: 5 mg Folic Acid (Folic Acid) 1 mg PO DAILY [facility] Last Admin: 08/30/18 10:44 Dose: 1 mg Home Med (Patient's Own Medication) 1 tab PO DAILY [facility] Last Admin: 08/30/18 10:44 Dose: 1 tab Dextrose (Dextrose 5% In Water 1000 Ml) 1,000 mls @ 70 mls/hr IV .[id number] [facility] Last Admin: 08/30/18 13:32 Dose: 70 mls/hr Pantoprazole Sodium (Protonix Inj) 40 mg IVP DAILY [facility] Last Admin: 08/30/18 10:44 Dose: 40 mg Rosuvastatin Calcium (Crestor) 10 mg PO HS [facility] Topiramate (Topamax) 25 mg PO BID [facility] Last Admin: 08/30/18 10:44 Dose: 25 mg Results - Vital Signs Recent Vital Signs: Last Vital Signs Temp 97.6 F 08/30/18 18:48 Pulse 86 08/30/18 18:48 Resp 20 08/30/18 18:48 BP 132/72 08/30/18 18:48 Pulse Ox 100 08/30/18 18:48 - Labs Result Diagrams: 08/30/18 11:36 08/30/18 11:36 Labs: Laboratory Results - last 24 hr 08/29/18 08/29/18 08/29/18 20:35 21:01 21:02 WBC RBC Hgb Hct MCV MCH MCHC RDW Plt Count MPV Neut % (Auto) Lymph % (Auto) [place] % (Auto) Eos % (Auto) Baso % (Auto) Neut # (Auto) Lymph # (Auto) [place] # (Auto) Eos # (Auto) Baso # (Auto) Sodium Potassium Chloride Carbon Dioxide Anion Gap BUN Creatinine Est GFR ( Amer) Est GFR (Non-Af Amer) Random Glucose Calcium Iron 26 L TIBC 174 L % Saturation 15 L Ferritin 659.0 Total Bilirubin AST ALT Alkaline Phosphatase Total Protein Albumin Globulin Albumin/Globulin Ratio Urine Osmolality Ur Random Sodium Ur Random Potassium Blood Type B POSITIVE Antibody Screen Negative 08/29/18 08/30/18 08/30/18 23:23 11:36 11:36 WBC 6.2 RBC 3.65 L Hgb 9.9 L D Hct 32.0 L MCV 87.7 MCH 27.3 MCHC 31.1 L RDW 17.3 H Plt Count 216 D MPV 7.7 Neut % (Auto) 73.6 Lymph % (Auto) 22.6 [place] % (Auto) 3.5 Eos % (Auto) 0.1 Baso % (Auto) 0.2 Neut # (Auto) 4.6 Lymph # (Auto) 1.4 [place] # (Auto) 0.2 Eos # (Auto) 0.0 Baso # (Auto) 0.0 Sodium 160 H* Potassium 3.5 L Chloride 133 H Carbon Dioxide 21 L Anion Gap 10 BUN 58 H Creatinine 2.4 H Est GFR ( Amer) 23 Est GFR (Non-Af Amer) 19 Random Glucose 182 H Calcium 7.6 L Iron TIBC % Saturation Ferritin Total Bilirubin 0.5 AST 104 H D ALT 57 H D Alkaline Phosphatase 97 Total Protein 6.4 Albumin 2.9 L Globulin 3.5 Albumin/Globulin Ratio 0.8 L Urine Osmolality 504 Ur Random Sodium 49 Ur Random Potassium 54.7 Blood Type Antibody Screen
--- NOTE | 2018-08-31 07:04 | HP ---
HISTORY OF PRESENT ILLNESS: The patient is an 87-year-old female with history of Alzheimer's, dementia, anemia, hypertension, hyperlipidemia, and arthritis. The patient was brought to the emergency room because the family observed that the patient has increased confusion, and so the patient was brought to the emergency room. The patient is not able to give much information about her condition; however, the family noted that there is no change in appetite, no diarrhea, no vomiting. PAST MEDICAL HISTORY: As I mentioned, history of Alzheimer's, arthritis, anemia, dementia, hyperlipidemia, and no history of kidney disease. SOCIAL HISTORY: The patient lives with daughter, and no smoking or alcohol abuse. FAMILY HISTORY: No inherited disease. REVIEW OF SYSTEMS: The patient does not appear to be in any respiratory distress, but the patient is not able to give much more information, and the patient appears weak. PHYSICAL EXAMINATION: GENERAL: The patient is, as I mentioned, weak, respond to verbalizing by making some noise, but does not verbalize. VITAL SIGNS: The blood pressure was 113/69, pulse is 80, respirations 20, and temperature 97.8. NECK: Has some stiffness. LUNGS: Poor inspiratory effort, but no rales noted. HEART: Regular rate and rhythm, but there is positive murmur and some extra systole noted. ABDOMEN: Soft, and no palpable masses. EXTREMITIES: There is some stiffness of the elbows and also of the knees and with chronic ulcer to the left leg and down to the foot. NEUROLOGIC: As I mentioned, the patient is awake, , and weak. LABORATORY DATA: The patient had tests done in the emergency room. Actually, the CBC showed that WBC is 9.5, hemoglobin is 7, hematocrit 25, and platelet is 322. Chemistry showed that sodium was 158 on admission, potassium 3.6, chloride 129, bicarb is 20, BUN 56, creatinine 2.7, and glucose is 177. Calcium 8.1, magnesium is 3.2. Troponin is 0.0720, and the total protein 7, and BNP is 2200. So, the patient is admitted with the diagnoses of severe anemia, altered mental status, dementia, Alzheimer's, hyperlipidemia, and CHF. The patient will have a consult with Dr. Pierson due to the chronic leg ulcer and also Dr. Islas who is the Renal. Also, further diagnosis will be the admission with severe hypernatremia. PLAN: The plan is that we are going troponin and transfer the patient to telemetry and for monitoring, and also we are going to have a physical therapy. Jaquan Graf MD
--- NOTE | 2018-08-31 08:03 | CON ---
DATE: 08/30/2018 RENAL CONSULTATION REQUESTED BY: Jaquan Graf MD REASON FOR CONSULTATION AND FOLLOWUP: Hypernatremia, renal failure. LOCATION: The patient is located in room 351, bed A. HISTORY OF PRESENT ILLNESS: The patient is an 87-year-old very cachectic elderly female with a past medical history significant for Alzheimer's dementia, anemia, arthritis, dementia, hypertension, hyperlipidemia, rheumatoid arthritis, and bedridden, who was brought in by the family with increased confusion today, and denies any change in appetite, vomiting, diarrhea, fever, cough, or shortness of breath. Complains of bilateral lower extremity ulcers. No fever. No chills. PAST MEDICAL HISTORY: Significant for Alzheimer's dementia, anemia, arthritis, hypertension, hyperlipidemia, and rheumatoid arthritis. PAST SURGICAL HISTORY: Denies. ALLERGIES: NO KNOWN DRUG ALLERGIES. SOCIAL HISTORY: No smoking. No alcohol. No drugs. FAMILY HISTORY: Not significant. CURRENT MEDICATIONS: Her home medications include Lexapro; Plavix; Namzaric, combination of memantine and donepezil; and also hydrochlorothiazide 25 mg p.o. daily, folic acid 1 mg daily; metoprolol; topiramate 25 mg p.o. b.i.d., and Crestor 10 mg at bedtime. Her current medications in the hospital include: Aricept 10 mg p.o. at bedtime, Crestor 10 mg at bedtime, IV fluids D5 normal saline at 70 mL per hour, folic acid 1 mg p.o. daily, Lexapro 5 mg p.o. at bedtime, Namenda 5 mg p.o. b.i.d., Pepcid 20 mg IV daily, Plavix 75 mg daily, and Topamax 25 mg p.o. b.i.d. FAMILY HISTORY: Not significant. She has a very supportive daughter. REVIEW OF THE SYSTEMS: Significant for altered mental status and decreased p.o. intake and bilateral lower extremity ulcers. PHYSICAL EXAMINATION: VITAL SIGNS: Blood pressure 132/72, pulse 86, respirations 20, temperature 97.6, and saturation 100%. Height 5 feet, weight is 100 pounds. GENERAL: The patient is an 87-year-old, very cachectic, elderly female with bilateral upper and lower extremity contractures, bedridden. HEENT: Pupils normal, reactive to light and accommodation. Conjunctivae pink. Sclerae anicteric. Tongue is dry, and trachea is midline. LUNGS: Symmetric on both sides. Bilateral breath sounds present. Clear to auscultation. CARDIOVASCULAR SYSTEM: Accord at the fifth intercostal space and midclavicular line. S1, S2 audible. No murmur or gallop. ABDOMEN: Normal in appearance. Soft, tympanitic. No guarding. No rigidity. No hepatosplenomegaly. CENTRAL NERVOUS SYSTEM: The patient is awake, oriented x0-1. Sensory system is grossly within normal limits. Motor system, bilateral upper and lower extremity contractures and also bilateral leg ulcers present. The patient has a dressing in both lower extremities. LABORATORY DATA: Include as follows: As of 08/29/2018, WBC 9.5, hemoglobin 7, hematocrit is 25, and platelets are 322. Sodium 158, potassium 3.6, chloride 129, CO2 of 20, BUN 56, creatinine 2.7, glucose 177, calcium 8.1, magnesium 3.2. Total bili 0.3, AST 62, ALT 32, alkaline phosphatase 105, ammonia 36, troponin is 0.072. ProBNP 2200, and total protein 7, albumin is 3.1. TSH is 2.14. Urine yellow, hazy, pH 5, specific gravity 1.019, protein 1+, glucose normal, ketones negative, blood negative, nitrite negative, bilirubin negative, and urobilinogen 4, leukocyte esterase negative, wbc 2, rbc 1, bacteria rare, hyaline cast 3-5, urine osmolality 504, urine sodium is 49, urine potassium is 54.7. Iron 26, TIBC 174, iron saturation is 15, and ferritin is 659. As of 08/30/2018, WBC 6.2, hemoglobin 9.9, hematocrit is 32, platelets 216. Sodium 160, potassium 3.5, chloride 133, CO2 21, BUN 58, creatinine 2.4, glucose 186, calcium 7.6. Blood culture as of 08/29/2018, positive for Gram-positive cocci identified as Staph aureus coag and also coag-negative staph x1 set. Second set of blood culture is negative, and urine culture is negative. Chest x-ray as of 08/29/2018, IVC filter in place, mild venous congestion, right hilar prominence, cardiomegaly, calcification in the aortic knob, sclerotic curvature of the spine, and radio-opaque calcification projection over the right upper abdomen. CT of the head as of 08/29/2018, impression: Technically limited examination, postsurgical changes, large low-density area involving the right parietal region and temporal lobe extending into the right-side high convexity compatible with encephalomalacia, edema with underlying neoplasm is not definitely excluded. X-ray of the foot as of 08/29/2018, no acute osseous findings. Overall, no significant interval change, profound osteopenia, and stable degenerative changes. X-ray of the tibia and fibula as of 08/29/2018, no acute findings related to or accounting for clinical presentation. ASSESSMENT: In summary, the patient is an 87-year-old, very cachectic, elderly female with hypertension, hyperlipidemia, dementia, bedridden, was admitted with altered mental status from her baseline and decreased oral intake and bilateral lower extremity ulcer. 1. Hypernatremia, most likely secondary to intravascular depletion secondary to decreased oral intake. 2. Anemia secondary to anemia of chronic kidney disease and also iron-deficiency anemia. 3. Hypertension. 4. Dementia. PLAN: The patient underwent transfusion of 2 units of RBC yesterday. H and H are stable, responded appropriately, and plan to discontinue D5 normal saline and start D5W at 80 mL per hour. Continue to monitor BMP. Avoid half-normal saline and normal saline with IV until serum sodium is corrected. Overall prognosis is guarded. Thank you for allowing me to participate in your patient's care. Consider IV iron therapy. Mark Islas MD [facility]
--- NOTE | 2018-08-31 09:33 | CP.PCM.PN ---
Subjective - Date & Time of Evaluation Date of Evaluation: 08/31/18 Time of Evaluation: 09:33 - Subjective Subjective: pt is seen and examined, follow up consult is dictated #[id number] check bmp c/w ivf d5w Objective - Vital Signs/Intake and Output Vital Signs (last 24 hours): Temp Pulse Resp BP Pulse Ox 98 F 90 20 116/64 96 08/31/18 08:30 08/31/18 08:30 08/31/18 08:30 08/31/18 08:30 08/31/18 08:30 Intake and Output: 08/31/18 08/31/18 06:59 18:59 Intake Total 1230 Output Total 1 Balance 1229 - Medications Medications: Current Medications Clopidogrel Bisulfate (Plavix) 75 mg PO DAILY [facility] Last Admin: 08/30/18 10:44 Dose: 75 mg Donepezil HCl (Aricept) 10 mg PO [facility] Last Admin: 08/30/18 22:31 Dose: 10 mg Escitalopram Oxalate (Lexapro) 5 mg PO [facility] Last Admin: 08/30/18 22:29 Dose: 5 mg Famotidine (Pepcid) 20 mg IVP DAILY [facility] Folic Acid (Folic Acid) 1 mg PO DAILY [facility] Last Admin: 08/30/18 10:44 Dose: 1 mg Dextrose (Dextrose 5% In Water 1000 Ml) 1,000 mls @ 80 mls/hr IV .[id number] [facility] Stop: 09/02/18 19:16 Last Admin: 08/31/18 07:29 Dose: 80 mls/hr Memantine (Namenda) 5 mg PO BID [facility] Rosuvastatin Calcium (Crestor) 10 mg PO [facility] Last Admin: 08/30/18 22:29 Dose: 10 mg Topiramate (Topamax) 25 mg PO BID [facility] Last Admin: 08/30/18 19:30 Dose: 25 mg - Labs Labs: 08/30/18 11:36 08/30/18 11:36
[2018-08-31 11:53] LABS: CALCIUM 7.7 mg/dl (8.6-10.4)
[2018-08-31] MEDS ORDERED: Ferric Sodium Gluconat Complex 62.5 mg/5 ml Vial IVPB SCH (12:00)
[2018-08-31] MEDS ORDERED: Enoxaparin 30 mg Syringe SC SCH (12:00)
[2018-08-31] MEDS: Ferric Sodium Gluconat Complex 125 MG in Sodium Chloride 0.9% 100 ML IVPB SCH (14:13)
--- NOTE | 2018-08-31 18:15 | CP.PCM.CON ---
History of Present Illness - History of Present Illness History of Present Illness: Podiatry Consult Note for Dr. Pierson 87F with PMH Alzheimer's Disease, Anemia, Arthritis (knees l>r), Dementia, HTN, Hypercholesterolemia, Rheumatoid Arthritis seen at bedside for left leg ulceration and right heel ulcer. Due to patient's mental status she is unable to relate medical history. According to her daughter, patient has suffered from her wounds for several years and has been seeing Dr. Pierson for regular dressing changes. She denies any new or worsening pedal complaints at this time. Denies any recent N/V/F/C/CP/SOB/D Review of Systems - Review of Systems All systems: reviewed and no additional remarkable complaints except Review of Systems: as per HPI Past Patient History - Past Medical History & Family History Past Medical History?: Yes - Past Social History Smoking Status: Former Smoker - CARDIAC Hx Hypercholesterolemia: Yes Hx Hypertension: Yes - PULMONARY Hx Respiratory Disorders: No Other/Comment: FORMER SMOKER - NEUROLOGICAL Hx Alzheimer's Disease: Yes Hx Dementia: Yes - HEENT Hx HEENT Problems: No - RENAL Hx Chronic Kidney Disease: No - ENDOCRINE/METABOLIC Hx Endocrine Disorders: No - HEMATOLOGICAL/ONCOLOGICAL Hx Anemia: Yes - INTEGUMENTARY Hx Dermatological Problems: Yes Other/Comment: LEFT FOOT WOUND - MUSCULOSKELETAL/RHEUMATOLOGICAL Hx Arthritis: Yes (KNEE L>R; B/L ANKLE) Hx Rheumatoid Arthritis: Yes (B/L LE) - GASTROINTESTINAL Hx Gastrointestinal Disorders: No - GENITOURINARY/GYNECOLOGICAL Hx Genitourinary Disorders: Yes Hx Incontinence: Yes - PSYCHIATRIC Hx Substance Use: No - SURGICAL HISTORY Hx Surgeries: No - ANESTHESIA Hx Anesthesia: Yes Hx Anesthesia Reactions: No Hx Malignant Hyperthermia: No Meds Allergies/Adverse Reactions: Allergies Allergy/AdvReac Type Severity Reaction Status Date / Time No Known Allergies Allergy Verified 03/23/17 11:41 - Medications Medications: Current Medications Clopidogrel Bisulfate (Plavix) 75 mg PO DAILY [facility] Last Admin: 08/31/18 10:47 Dose: 75 mg Donepezil HCl (Aricept) 10 mg PO [facility] Last Admin: 08/30/18 22:31 Dose: 10 mg Enoxaparin Sodium (Lovenox) 30 mg SC DAILY [facility] Last Admin: 08/31/18 12:19 Dose: 30 mg Escitalopram Oxalate (Lexapro) 5 mg PO [facility] Last Admin: 08/30/18 22:29 Dose: 5 mg Famotidine (Pepcid) 20 mg IVP DAILY [facility] Last Admin: 08/31/18 10:57 Dose: 20 mg Folic Acid (Folic Acid) 1 mg PO DAILY [facility] Last Admin: 08/31/18 10:47 Dose: 1 mg Dextrose (Dextrose 5% In Water 1000 Ml) 1,000 mls @ 80 mls/hr IV .[id number] [facility] Stop: 09/02/18 19:16 Last Admin: 08/31/18 07:29 Dose: 80 mls/hr Ferric Sodium Gluconate Complex 125 mg/ Sodium Chloride 110 mls @ 110 mls/hr IVPB Q24H [facility] Stop: 09/08/18 14:01 Last Admin: 08/31/18 14:13 Dose: 110 mls/hr Potassium Chloride (Potassium Chloride 20 Meq/100 Ml) 20 meq in 100 mls @ 50 mls/hr IVPB Q2H [facility] Stop: 08/31/18 18:29 Last Admin: 08/31/18 17:36 Dose: 50 mls/hr Memantine (Namenda) 5 mg PO BID [facility] Last Admin: 08/31/18 17:36 Dose: 5 mg Rosuvastatin Calcium (Crestor) 10 mg PO HS [facility] Last Admin: 08/30/18 22:29 Dose: 10 mg Silver Sulfadiazine (Silvadene 1% 20 Gm) 0 ea TOP DAILY [facility] Topiramate (Topamax) 25 mg PO BID [facility] Last Admin: 08/31/18 17:36 Dose: 25 mg Physical Exam - Constitutional Appears: Non-toxic, Combative, Agitated, Confused - Extremities Exam Additional comments: LE focused exam: Vasc: DP/PT pulses fully palpable 2/4 b/l. Skin temperature warm to warm from proximal to distal. CFT < 3 seconds to all digits. No edema noted b/l Neuro: Unable to assess due to patient's mental status Derm: Left leg circumfrential venous stasis ulceration measuring approximately 15 cm in length and 0.1 cm in depth seen on patient's thompson. Wound base is fibrogranular mix with serous drainage noted. Minimal malodor noted. No periwound erythema, tracking, tunneling, undermining or other clinical signs of infection noted. Healed ulceration noted to patient's right heel with DTI present MSK: Unable to assess due to patient's mental status - Neurological Exam Neurological exam: Alert, Altered - Psychiatric Exam Psychiatric exam: Normal Mood Results - Vital Signs Recent Vital Signs: Last Vital Signs Temp 97.3 F L 08/31/18 15:00 Pulse 68 08/31/18 15:00 Resp 18 08/31/18 15:00 BP 104/61 08/31/18 15:00 Pulse Ox 100 08/31/18 15:00 - Labs Result Diagrams: 08/30/18 11:36 08/31/18 11:25 Labs: Laboratory Results - last 24 hr 08/29/18 08/31/18 23:23 11:25 Sodium 151 H Potassium 3.1 L Chloride 124 H Carbon Dioxide 21 L Anion Gap 10 BUN 49 H Creatinine 1.7 H Est GFR ( Amer) 34 Est GFR (Non-Af Amer) 28 Random Glucose 228 H D Calcium 7.7 L Urine Chloride 58 Assessment & Plan - Assessment and Plan (Free Text) Assessment: 87F with PMH Alzheimer's Disease, Anemia, Arthritis (knees l>r), Dementia, HTN, Hypercholesterolemia, Rheumatoid Arthritis seen at bedside for left leg ulceration and right heel ulcer Plan: Patient seen and evaluated Plan discussed with Dr. Pierson Afebprasanth, absent leukocytosis Foot xray: Osteopenia, no acute osseous findings Tib/fib xray: No acute findings Patient left leg dressed with Telfa, ABD, DSD Right foot dressed with ABD, DSD Silvadene ordered for next dressing Multipodus boots ordered to be worn all times while in bed No plan for surgical intervention at this time Podiatry will continue to follow while patient in house - Date & Time Date: 08/31/18 Time: 12:25
--- NOTE | 2018-09-01 00:40 | PN ---
DATE: 08/31/2018 FOLLOWUP RENAL CONSULTATION LOCATION: The patient is located in room 351, bed A. REQUESTED BY: Jaquan Graf MD REASON FOR FOLLOWUP: Hypernatremia, acute renal failure. SUBJECTIVE: Mrs. Wright is an 87-year-old elderly very cachectic female with a past medical history significant for Alzheimer dementia, anemia, arthritis, dementia, hypertension, hyperlipidemia, rheumatoid arthritis and bedridden who was brought in by the patient's family with altered mental status from the baseline and decreased p.o. intake. The patient was found to have hypernatremia on admission and admitted for further management. The patient was initially started on D5 normal saline due to hypotension. Now, the patient was changed to IV fluids of D5W at 80 mL per hour from yesterday morning. The patient is not in acute distress. The patient is awake and able to respond to verbal stimuli. Not in distress. PHYSICAL EXAMINATION: VITAL SIGNS: As follows: This morning, blood pressure 116/64, pulse 90, respirations 20, temperature 98, saturation 96%. Height 5 feet. Weight is 100 pounds. GENERAL: Mrs. Wright is an 87-year-old elderly very cachectic and thin-built female with contracted both upper and lower extremities, not in distress. HEENT: Pupils are normal and reactive to light and accommodation. Conjunctivae pink. Sclerae anicteric. Tongue is dry. Trachea is midline. LUNGS: Symmetric on both sides. Bilateral breath sounds present. Clear to auscultation. CARDIOVASCULAR SYSTEM: [place] at the fifth intercostal space, midclavicular line. S1 and S2 audible. No murmur or gallop. ABDOMEN: Normal in appearance. Soft, tympanitic. Bowel sounds present. No guarding. No rigidity. No hepatosplenomegaly. CENTRAL NERVOUS SYSTEM: Awake, confused. EXTREMITIES: No cyanosis, no clubbing. The patient has a dressing to the both feet. SKIN: Turgor is poor. MEDICATIONS: Her current medications include as follows: Aricept 10 mg p.o. at bedtime, Crestor 10 mg at bedtime, IV fluids of D5W at 80 mL per hour, Ferrlecit 125 mg every 24 hours, folic acid 1 mg daily, Lexapro 5 mg p.o. at bedtime, Lovenox 30 mg subcu daily, Namenda 5 mg p.o. b.i.d., Pepcid 20 mg p.o. daily, Plavix 75 mg p.o. daily, Silvadene cream topical, and Topamax 25 mg p.o. b.i.d. LABORATORY DATA: Include as follows: Sodium 151, potassium 3.1, chloride 124, CO2 of 21, BUN 49, creatinine 1.7, glucose is 228, and calcium 7.7. As of 08/30/2018: Total protein 6.4, albumin is 2.9. Blood culture x1 has gram-positive cocci, and the second set is negative on day 2. Urine culture is negative. ASSESSMENT AND PLAN: In summary, Mrs. Wright is an 87-year-old elderly female with a history of hypertension, hyperlipidemia, dementia, arthritis and bedridden with bilateral leg ulcers with decreased oral intake and hypernatremia and increased blood urea nitrogen and creatinine. 1. Acute renal failure on chronic kidney disease, most likely secondary to dehydration. 2. Hypernatremia secondary to dehydration and decreased oral intake. 3. Status post hypotension. 4. Anemia secondary to multifactorial anemia of chronic disease and also cannot rule out iron-deficiency anemia. Continue intravenous fluids of D5W at 80 mL per hour. Continue Ferrlecit. Status post transfusion hemoglobin and hematocrit are stable. Continue to monitor basic metabolic panel. We will follow with you. Thank you for allowing me to participate in your patient's care. Renal function is slowly improving. Mark Islas MD
--- NOTE | 2018-09-01 03:31 | PN ---
DATE: 08/31/2018 SUBJECTIVE: The patient is now in bed, kind of sleeping, and as before, the patient is not responding to questions. The patient is in no apparent distress. PHYSICAL EXAMINATION: VITAL SIGNS: Blood pressure 104/61, pulse is 68, respirations 18, and temperature 97.3. NECK: There is stiffness. LUNGS: Poor inspiratory effort. HEART: Regular rate and rhythm and positive murmur. ABDOMEN: Soft and positive bowel sounds. EXTREMITIES: There is slight contracture of the knees. NEUROLOGIC: The patient is now asleep, but easily arousable and does not participate to any dialogue. The patient is wheelchair bound. LABORATORY DATA: The patient had blood tests done today. Sodium 161 going down, potassium 3.1, chloride 124, bicarb is 21, BUN 40, creatinine 1.7, and calcium 7.7. AST 104, ALT 77. PLAN: The plan is that we are going to have the potassium replaced and wound care appreciated, and Dr. Islas, behavioral health associate's note is appreciated. Requesting blood work in the morning. dehydration. Jaquan Graf MD
[2018-09-01] MEDS: Silver Sulfadiazine 1% Cream (20 gm) TOP SCH (10:59)
[2018-09-01 11:46] LABS: BASO % 0.3 % (0.0-2.0); EOS # 0.1 K/uL (0.0-0.7); EOS % 0.9 % (0.0-4.0); HEMOGLOBIN 9.8 g/dL (11.0-16.0); LYMPH # 2.3 K/uL (1.0-4.3); LYMPH % 26.6 % (20.0-40.0); MEAN CELL VOLUME 85.9 fL (81.0-99.0); MEAN CORPUSCULAR HEMOGLOBIN 26.3 pg (27.0-31.0); MEAN CORPUSCULAR HGB CONC 30.6 g/dL (33.0-37.0); MEAN PLATELET VOLUME 8.3 fL (7.2-11.7); MONO # 0.3 K/uL (0.0-0.8); MONO % 3.5 % (0.0-10.0); NEUT # 5.9 K/uL (1.8-7.0); NEUT % 68.7 % (50.0-75.0); NRBC % 0.6 % (0.0-2.0); RBC 3.75 Mil/uL (3.80-5.20); WHITE BLOOD COUNT 8.7 K/uL (4.8-10.8)
--- NOTE | 2018-09-01 12:06 | CP.PCM.PN ---
Subjective - Date & Time of Evaluation Date of Evaluation: 09/01/18 Time of Evaluation: 12:05 - Subjective Subjective: pt is seen and examined, follow up consult is dictated #[id number] Objective - Vital Signs/Intake and Output Vital Signs (last 24 hours): Temp Pulse Resp BP Pulse Ox 98.4 F 98 H 20 150/89 100 09/01/18 08:27 09/01/18 08:27 09/01/18 08:27 09/01/18 08:27 09/01/18 08:27 Intake and Output: 09/01/18 09/01/18 06:59 18:59 Intake Total 1630 Balance 1630 - Medications Medications: Current Medications Clopidogrel Bisulfate (Plavix) 75 mg PO DAILY [facility] Last Admin: 09/01/18 10:57 Dose: 75 mg Donepezil HCl (Aricept) 10 mg PO HS [facility] Last Admin: 08/31/18 21:30 Dose: 10 mg Escitalopram Oxalate (Lexapro) 5 mg PO HS [facility] Last Admin: 08/31/18 21:30 Dose: 5 mg Famotidine (Pepcid) 20 mg IVP DAILY [facility] Last Admin: 09/01/18 10:58 Dose: 20 mg Folic Acid (Folic Acid) 1 mg PO DAILY [facility] Last Admin: 09/01/18 10:57 Dose: 1 mg Heparin Sodium (Porcine) (Heparin) 5,000 units SC Q12 [facility] Last Admin: 09/01/18 10:58 Dose: 5,000 units Dextrose (Dextrose 5% In Water 1000 Ml) 1,000 mls @ 80 mls/hr IV .[id number] [facility] Stop: 09/02/18 19:16 Last Admin: 09/01/18 09:45 Dose: Not Given Ferric Sodium Gluconate Complex 125 mg/ Sodium Chloride 110 mls @ 110 mls/hr IVPB Q24H [facility] Stop: 09/08/18 14:01 Last Admin: 08/31/18 14:13 Dose: 110 mls/hr Memantine (Namenda) 5 mg PO BID [facility] Last Admin: 09/01/18 11:00 Dose: 5 mg Rosuvastatin Calcium (Crestor) 10 mg PO HS [facility] Last Admin: 08/31/18 21:29 Dose: 10 mg Silver Sulfadiazine (Silvadene 1% 20 Gm) 0 ea TOP DAILY [facility] Last Admin: 09/01/18 10:59 Dose: 1 applic Topiramate (Topamax) 25 mg PO BID [facility] Last Admin: 09/01/18 11:05 Dose: 25 mg Zinc Sulfate (Zinc Sulfate 220 Mg Cap) 220 mg PO DAILY [facility] Last Admin: 09/01/18 10:57 Dose: 220 mg - Labs Labs: 09/01/18 11:31 08/31/18 11:25
[2018-09-01 12:15] LABS: CALCIUM 7.9 mg/dl (8.6-10.4)
[2018-09-01] MEDS: Ferric Sodium Gluconat Complex 125 MG in Sodium Chloride 0.9% 100 ML IVPB SCH (14:12)
--- NOTE | 2018-09-01 16:35 | CP.PCM.PN ---
Subjective - Date & Time of Evaluation Date of Evaluation: 09/01/18 Time of Evaluation: 14:00 - Subjective Subjective: Podiatry Progress Note for Dr. Pierson 87F seen and evaluated at bedside for left leg wound and healed right heel wound. Patient is accompanied by her daughter. She suffers from dementia and is unable to effectively communicate. Per nursing, no acute overnight events. Objective - Vital Signs/Intake and Output Vital Signs (last 24 hours): Temp Pulse Resp BP Pulse Ox 98.4 F 98 H 20 150/89 100 09/01/18 08:27 09/01/18 08:27 09/01/18 08:27 09/01/18 08:27 09/01/18 08:27 Intake and Output: 09/01/18 09/01/18 06:59 18:59 Intake Total 1630 420 Balance 1630 420 - Medications Medications: Current Medications Clopidogrel Bisulfate (Plavix) 75 mg PO DAILY [facility] Last Admin: 09/01/18 10:57 Dose: 75 mg Donepezil HCl (Aricept) 10 mg PO HS [facility] Last Admin: 08/31/18 21:30 Dose: 10 mg Escitalopram Oxalate (Lexapro) 5 mg PO HS [facility] Last Admin: 08/31/18 21:30 Dose: 5 mg Famotidine (Pepcid) 20 mg IVP DAILY [facility] Last Admin: 09/01/18 10:58 Dose: 20 mg Folic Acid (Folic Acid) 1 mg PO DAILY [facility] Last Admin: 09/01/18 10:57 Dose: 1 mg Heparin Sodium (Porcine) (Heparin) 5,000 units SC Q12 [facility] Last Admin: 09/01/18 10:58 Dose: 5,000 units Dextrose (Dextrose 5% In Water 1000 Ml) 1,000 mls @ 80 mls/hr IV .[id number] [facility] Stop: 09/02/18 19:16 Last Admin: 09/01/18 09:45 Dose: Not Given Ferric Sodium Gluconate Complex 125 mg/ Sodium Chloride 110 mls @ 110 mls/hr IV PB Q24H [facility] Stop: 09/08/18 14:01 Last Admin: 09/01/18 14:12 Dose: Not Given Memantine (Namenda) 5 mg PO BID [facility] Last Admin: 09/01/18 11:00 Dose: 5 mg Rosuvastatin Calcium (Crestor) 10 mg PO HS [facility] Last Admin: 08/31/18 21:29 Dose: 10 mg Silver Sulfadiazine (Silvadene 1% 20 Gm) 0 ea TOP DAILY [facility] Last Admin: 09/01/18 10:59 Dose: 1 applic Topiramate (Topamax) 25 mg PO BID [facility] Last Admin: 09/01/18 11:05 Dose: 25 mg Zinc Sulfate (Zinc Sulfate 220 Mg Cap) 220 mg PO DAILY [facility] Last Admin: 09/01/18 10:57 Dose: 220 mg - Labs Labs: 09/01/18 11:31 09/01/18 11:31 - Constitutional Appears: Well, Non-toxic, No Acute Distress - Extremities Exam Additional comments: LE focused exam: Vasc: DP/PT pulses fully palpable 2/4 b/l. Skin temperature warm to warm from proximal to distal. CFT < 3 seconds to all digits. No edema noted b/l Neuro: Unable to assess due to patient's mental status Derm: Left leg circumfrential venous stasis ulceration measuring approximately 15 cm in length and 0.1 cm in depth seen on patient's thompson. Wound base is fibrogranular mix with thick, brown drainage noted. Minimal malodor noted. No periwound erythema, tracking, tunneling, undermining or other clinical signs of infection noted. MSK: Unable to assess due to patient's mental status - Neurological Exam Neurological Exam: Alert, Altered, Awake - Psychiatric Exam Psychiatric exam: Normal Affect, Normal Mood Assessment and Plan - Assessment and Plan (Free Text) Assessment: 87F seen and evaluated at bedside for left leg wound and healed right heel wound. Plan: Patient seen and evaluated with Dr. Pierson Afebrile, absent leukocytosis Continue abx per ID Wound cx taken of left leg Foot xray: Osteopenia, no acute osseous findings Tib/fib xray: No acute findings Vascular consult placed Wound dressed with telfa, ABD, DSD No plan for surgical intervention at this time Podiatry will continue to follow while patient in house
--- NOTE | 2018-09-01 18:36 | CP.PCM.CON ---
History of Present Illness - History of Present Illness History of Present Illness: Vascular Surgery Consult Note for Dr. Pardo Consult: Left lower extremity wound HPI: 87 year old female, past medical history significant for alzheimers dementia, hypertension, anemia, arthritis, and CHF, consulted by podiatry for a nonhealing left lower extremity open wound. Patient's daughter is at bedside and history obtained by daughter. Daughter states that patient has had this wound for many years and that is has not changed during that time to the best of her knowledge. Wound care nurses come to the home 2x/week to change the dressings. Daughter does note occasional episodes of bleeding but no other complaints. Denies recent fever, chills, vomiting, change in bowel habits, difficulty breathing, change in appetite, headaches, or urinary symptoms. PMH: See above PSH: Left lower extremity skin graft FH: No inherited disease SH: Remote history of tobacco use, denies alcohol or drugs ALL: NKDA Meds: See MAR Review of Systems - Review of Systems Systems not reviewed;Unavailable: Dementia - Constitutional Constitutional: Weakness. absent: Fever - Respiratory Respiratory: absent: Cough - Gastrointestinal Gastrointestinal: absent: Vomiting - Integumentary Integumentary: Bleeding Lesions, Dry Skin Past Patient History - Past Medical History & Family History Past Medical History?: Yes - Past Social History Smoking Status: Former Smoker - CARDIAC Hx Hypercholesterolemia: Yes Hx Hypertension: Yes - PULMONARY Hx Respiratory Disorders: No Other/Comment: FORMER SMOKER - NEUROLOGICAL Hx Alzheimer's Disease: Yes Hx Dementia: Yes - HEENT Hx HEENT Problems: No - RENAL Hx Chronic Kidney Disease: No - ENDOCRINE/METABOLIC Hx Endocrine Disorders: No - HEMATOLOGICAL/ONCOLOGICAL Hx Anemia: Yes - INTEGUMENTARY Hx Dermatological Problems: Yes Other/Comment: LEFT FOOT WOUND - MUSCULOSKELETAL/RHEUMATOLOGICAL Hx Arthritis: Yes (KNEE L>R; B/L ANKLE) Hx Rheumatoid Arthritis: Yes (B/L LE) - GASTROINTESTINAL Hx Gastrointestinal Disorders: No - GENITOURINARY/GYNECOLOGICAL Hx Genitourinary Disorders: Yes Hx Incontinence: Yes - PSYCHIATRIC Hx Substance Use: No - SURGICAL HISTORY Hx Surgeries: No - ANESTHESIA Hx Anesthesia: Yes Hx Anesthesia Reactions: No Hx Malignant Hyperthermia: No Meds Allergies/Adverse Reactions: Allergies Allergy/AdvReac Type Severity Reaction Status Date / Time No Known Allergies Allergy Verified 03/23/17 11:41 - Medications Medications: Current Medications Clopidogrel Bisulfate (Plavix) 75 mg PO DAILY [facility] Last Admin: 09/01/18 10:57 Dose: 75 mg Donepezil HCl (Aricept) 10 mg PO HS [facility] Last Admin: 08/31/18 21:30 Dose: 10 mg Escitalopram Oxalate (Lexapro) 5 mg PO HS [facility] Last Admin: 08/31/18 21:30 Dose: 5 mg Famotidine (Pepcid) 20 mg IVP DAILY [facility] Last Admin: 09/01/18 10:58 Dose: 20 mg Folic Acid (Folic Acid) 1 mg PO DAILY [facility] Last Admin: 09/01/18 10:57 Dose: 1 mg Heparin Sodium (Porcine) (Heparin) 5,000 units SC Q12 [facility] Last Admin: 09/01/18 10:58 Dose: 5,000 units Dextrose (Dextrose 5% In Water 1000 Ml) 1,000 mls @ 80 mls/hr IV .[id number] [facility] Stop: 09/02/18 19:16 Last Admin: 09/01/18 09:45 Dose: Not Given Ferric Sodium Gluconate Complex 125 mg/ Sodium Chloride 110 mls @ 110 mls/hr IVPB Q24H [facility] Stop: 09/08/18 14:01 Last Admin: 09/01/18 14:12 Dose: Not Given Memantine (Namenda) 5 mg PO BID [facility] Last Admin: 09/01/18 11:00 Dose: 5 mg Rosuvastatin Calcium (Crestor) 10 mg PO HS [facility] Last Admin: 08/31/18 21:29 Dose: 10 mg Silver Sulfadiazine (Silvadene 1% 20 Gm) 0 ea TOP DAILY [facility] Last Admin: 09/01/18 10:59 Dose: 1 applic Topiramate (Topamax) 25 mg PO BID [facility] Last Admin: 09/01/18 18:07 Dose: 25 mg Zinc Sulfate (Zinc Sulfate 220 Mg Cap) 220 mg PO DAILY [facility] Last Admin: 09/01/18 10:57 Dose: 220 mg Physical Exam - Constitutional Appears: Well, Non-toxic, No Acute Distress - Head Exam Head Exam: ATRAUMATIC, NORMAL INSPECTION, NORMOCEPHALIC - Eye Exam Eye Exam: EOMI - ENT Exam ENT Exam: Mucous Membranes Dry - Respiratory Exam Respiratory Exam: absent: Respiratory Distress - Cardiovascular Exam Cardiovascular Exam: absent: Tachycardia - GI/Abdominal Exam GI & Abdominal Exam: Normal Bowel Sounds, Soft. absent: Tenderness - Extremities Exam Additional comments: Nonpalpable DP/PT, popliteal pulses bilaterally Faint 1+ femoral pulses bilaterally Left lower extremity deformity/contracted - wrapped in TREVOR per podiatry Right heel wrapped in Kerlex for offloading Unable to obtain doppler signals as daughter refused Results - Vital Signs Recent Vital Signs: Last Vital Signs Temp 98.4 F 09/01/18 08:27 Pulse 98 H 09/01/18 08:27 Resp 20 09/01/18 08:27 BP 150/89 09/01/18 08:27 Pulse Ox 100 09/01/18 08:27 - Labs Result Diagrams: 09/01/18 11:31 09/01/18 11:31 Labs: Laboratory Results - last 24 hr 09/01/18 09/01/18 11:31 11:31 WBC 8.7 RBC 3.75 L Hgb 9.8 L Hct 32.2 L MCV 85.9 MCH 26.3 L MCHC 30.6 L RDW 18.0 H Plt Count 159 MPV 8.3 Neut % (Auto) 68.7 Lymph % (Auto) 26.6 [place] % (Auto) 3.5 Eos % (Auto) 0.9 Baso % (Auto) 0.3 Neut # (Auto) 5.9 Lymph # (Auto) 2.3 [place] # (Auto) 0.3 Eos # (Auto) 0.1 Baso # (Auto) 0.0 Sodium 146 Potassium 3.7 Chloride 118 H Carbon Dioxide 23 Anion Gap 8 L BUN 34 H Creatinine 1.5 H Est GFR ( Amer) 40 Est GFR (Non-Af Amer) 33 Random Glucose 127 H D Calcium 7.9 L Magnesium 2.3 Assessment & Plan - Assessment and Plan (Free Text) Assessment: 87F w/ left lower extremity wound Plan: At this time daughter refused to let me unwrap the TREVOR/Kerlex of the left leg for further examination Daughter also refused to let me use the doppler to check signals Will obtain DEBBIE/PVR No CTA at this time secondary to poor renal function Daughter would not like any surgical intervention at this time stating her mother has "too much going on" D/w Dr. Char Torres PGY1
--- NOTE | 2018-09-01 21:26 | PN ---
DATE: 09/01/2018 SUBJECTIVE: The patient is more awake today but not responded appropriately to questions and is smiling but no apparent distress. PHYSICAL EXAMINATION: VITAL SIGNS: Blood pressure 150/89, pulse is 98, respirations 20, and temperature 98.4. NECK: Supple but there is mild stiffness though. LUNGS: Clear, even though the patient does not make any deep breathing. HEART: Regular rate and rhythm. Positive murmur. ABDOMEN: Soft. Positive bowel sounds. EXTREMITIES: There is chronic ulcer to the left leg and also there is some contracture of the knees. LABORATORY DATA: The patient's blood work showed WBC 8.7, hemoglobin 9.8, hematocrit 32.2, and platelet 159. Chemistry: Sodium 146, potassium 3.7, chloride 118, BUN 8, creatinine 1.5, glucose 127, calcium is 7.9 and magnesium 2.3. PLAN: The plan is that we are going to continue the antibiotic. Continue also IV fluid. Continue wound care and some physical therapy. Case was reviewed and discussed with Sandy Medeiros, the nurse practitioner. Jaquan Graf MD
--- NOTE | 2018-09-01 22:35 | CARD ---
APPROVED REPORT Date of service: 08/29/2018 EKG Measurement Heart [id number] [id number] <Conclusion> Sinus tachycardia with Increased R/S ratio in V1, consider early transition or posterior infarct Abnormal ECG
--- NOTE | 2018-09-02 02:23 | PN ---
DATE: 09/01/2018 LOCATION: The patient is located in room 351, bed A. REQUESTED BY: Jaquan Graf MD REASON FOR FOLLOWUP: Hypernatremia, acute renal failure, anemia. SUBJECTIVE: Mrs. Wright is an 87 years old, elderly, very thin, cachectic, bedridden, demented female with a past medical history significant for hypertension, arthritis, dementia, hyperlipidemia, rheumatoid arthritis, was admitted with decreased mental status from her baseline and decreased p.o. intake. The patient was found to have anemia, hypernatremia and renal failure, status post transfusion. The patient is receiving IV fluids D5W at 80 mL/hour. The patient looks much better than on admission, more alert and not in distress. The patient is mostly nonverbal. PHYSICAL EXAMINATION: VITAL SIGNS: As follows: Blood pressure 150/89, pulse 98, respirations 20, temperature 98.4, saturation 100%. Height 5 feet, weight is 100 pounds. GENERAL: Mrs. Wright is an 87 years old elderly male, very cachectic female, thin built, and not in distress. HEENT: Pupils normal, react to light and accommodation. Conjunctivae pink. Sclerae anicteric. Tongue is moist. Trachea is midline. LUNGS: Symmetric on both sides. Bilateral breath sounds present. Clear to auscultation. CVS: [place] at the fifth intercostal space, midclavicular line. S1, S2 audible. No murmur or gallop. ABDOMEN: Normal in appearance, soft, tympanitic, no guarding, no rigidity. No hepatosplenomegaly. RAKER BUFFING WHEEL: The patient is awake, oriented x0-1. Sensory system is within normal limits. Motor system contracted, both upper and lower extremities. EXTREMITIES: No cyanosis, no clubbing. The patient has a dressing put on the feet for the pressure ulcer. SKIN: Turgor is fair. MEDICATIONS: Current medications include as follows: Aricept 10 mg p.o. at bedtime, Crestor 10 mg at bedtime, IV fluids of D5W at 80 mL/hour, ferrous gluconate 125 mg every 24 hours, folic acid 1 mg daily, subcu heparin 5000 units every 12 hours, Lexapro 5 mg p.o. at bedtime, Namenda 5 mg p.o. b.i.d., Pepcid 20 mg IV daily, Plavix 75 mg daily, Silvadene cream topical, Topamax 25 mg p.o. b.i.d., zinc sulfate 220 mg p.o. daily. LABORATORY DATA: Include as follows: As of 09/01/2018, WBC 8.7, hemoglobin 9.8, hematocrit is 32.2, platelets 159. Sodium 146, potassium 3.7, chloride 118, CO2 of 23, BUN 34, creatinine 1.5, glucose 127, calcium is 7.9, and magnesium 2.3. Blood cultures as of 08/29/2018, positive for staph, coag negative, x1 set and the second set is negative as of day 3 and urine culture is negative from 08/29/2018. ASSESSMENT AND PLAN: Mrs. Wright is an 87 years old, elderly, thin-built, very cachectic female with hypertension, dementia, hyperlipidemia, arthritis, bedridden with contraction both upper and lower extremities, was admitted with decreased mental status from her baseline and decreased by mouth intake and found to have low hemoglobin and hematocrit, hypernatremia and renal failure. 1. Renal failure, most likely [id number] kidney disease, cannot rule out acute renal failure. 2. Anemia secondary to iron-deficiency anemia, status post transfusion. Continue Ferrlecit. 3. Hypernatremia, most likely secondary to intravascular depletion, secondary to decreased by mouth intake. Renal function is improving and serum sodium is also improving. Continue IV fluids D5W at 80 mL/hour. Continue to monitor BMP. Increase p.o. intake, and we will add in Nepro 1 can p.o. daily. Thank you for allowing me to participate in your patient's care. Overall prognosis is guarded. Mark Islas MD
[2018-09-02 07:06] LABS: BASO % 0.2 % (0.0-2.0); EOS % 0.5 % (0.0-4.0); HEMOGLOBIN 9.7 g/dL (11.0-16.0); MEAN CELL VOLUME 85.4 fL (81.0-99.0); MEAN CORPUSCULAR HEMOGLOBIN 27.3 pg (27.0-31.0); MEAN PLATELET VOLUME 7.8 fL (7.2-11.7); MONO # 0.4 K/uL (0.0-0.8); MONO % 5.8 % (0.0-10.0); NEUT # 4.7 K/uL (1.8-7.0); NEUT % 65.5 % (50.0-75.0); NRBC % 0.3 % (0.0-2.0); RBC 3.57 Mil/uL (3.80-5.20); RED CELL DISTRIBUTION WIDTH 18.3 % (11.5-14.5); WHITE BLOOD COUNT 7.2 K/uL (4.8-10.8)
[2018-09-02 07:13] LABS: ALB/GLOB RATIO 0.8 (1.0-2.1); ALBUMIN 2.4 g/dL (3.5-5.0); CALCIUM 7.7 mg/dl (8.6-10.4)
--- NOTE | 2018-09-02 08:11 | CP.PCM.PN ---
Subjective - Date & Time of Evaluation Date of Evaluation: 09/02/18 Time of Evaluation: 07:30 - Subjective Subjective: Surgery progress note for Dr. Pardo. Patient seen and examined at bedside. No acute events reported overnight. Attempted to see dressing on patient foot. Unable to examine sites as patient was unable to tolerate pain. Unable to obtain ROS as patients underlying dementia. Objective - Vital Signs/Intake and Output Vital Signs (last 24 hours): Temp Pulse Resp BP Pulse Ox 97.2 F L 71 20 102/62 97 09/02/18 00:00 09/02/18 05:30 09/02/18 05:30 09/02/18 05:30 09/02/18 05:30 Intake and Output: 09/02/18 09/02/18 06:59 18:59 Intake Total 300 Output Total 1 Balance 299 - Medications Medications: Current Medications Clopidogrel Bisulfate (Plavix) 75 mg PO DAILY [facility] Last Admin: 09/01/18 10:57 Dose: 75 mg Donepezil HCl (Aricept) 10 mg PO [facility] Last Admin: 09/01/18 21:30 Dose: 10 mg Escitalopram Oxalate (Lexapro) 5 mg PO [facility] Last Admin: 09/01/18 21:30 Dose: 5 mg Famotidine (Pepcid) 20 mg IVP DAILY [facility] Last Admin: 09/01/18 10:58 Dose: 20 mg Folic Acid (Folic Acid) 1 mg PO DAILY [facility] Last Admin: 09/01/18 10:57 Dose: 1 mg Heparin Sodium (Porcine) (Heparin) 5,000 units SC Q12 [facility] Last Admin: 09/01/18 21:31 Dose: 5,000 units Dextrose (Dextrose 5% In Water 1000 Ml) 1,000 mls @ 80 mls/hr IV .[id number] [facility] Stop: 09/02/18 19:16 Last Admin: 09/01/18 22:08 Dose: Not Given Ferric Sodium Gluconate Complex 125 mg/ Sodium Chloride 110 mls @ 110 mls/hr IVPB Q24H [facility] Stop: 09/08/18 14:01 Last Admin: 09/01/18 14:12 Dose: Not Given Memantine (Namenda) 5 mg PO BID [facility] Last Admin: 09/01/18 18:00 Dose: 5 mg Rosuvastatin Calcium (Crestor) 10 mg PO [facility] Last Admin: 09/01/18 21:31 Dose: 10 mg Silver Sulfadiazine (Silvadene 1% 20 Gm) 0 ea TOP DAILY [facility] Last Admin: 09/01/18 10:59 Dose: 1 applic Topiramate (Topamax) 25 mg PO BID [facility] Last Admin: 09/01/18 18:07 Dose: 25 mg Zinc Sulfate (Zinc Sulfate 220 Mg Cap) 220 mg PO DAILY [facility] Last Admin: 09/01/18 10:57 Dose: 220 mg - Labs Labs: 09/02/18 06:53 09/02/18 06:53 - Constitutional Appears: Non-toxic, No Acute Distress - Head Exam Head Exam: NORMAL INSPECTION - Eye Exam Eye Exam: Normal appearance - ENT Exam ENT Exam: Mucous Membranes Moist - Respiratory Exam Respiratory Exam: NORMAL BREATHING PATTERN - Cardiovascular Exam Additional comments: rr - GI/Abdominal Exam GI & Abdominal Exam: Soft. absent: Tenderness - Extremities Exam Additional comments: Nonpalpable DP/PT, popliteal pulses bilaterally Faint 1+ femoral pulses bilaterally Left lower extremity deformity/contracted - wrapped in TREVOR per podiatry Right heel wrapped in Kerlex for offloading Unable to obtain doppler signals as daughter refused - Neurological Exam Neurological Exam: Awake Assessment and Plan - Assessment and Plan (Free Text) Assessment: 87F w/ left lower extremity wound Plan: - Family is declining surgical intervention at this time - Recommend U/S - No surgical intervention at this time - D/w Dr. Pardo, Yfn Ndiaye
[2018-09-02] MEDS: Silver Sulfadiazine 1% Cream (20 gm) TOP SCH (10:09)
--- NOTE | 2018-09-02 13:52 | CP.PCM.PN ---
Subjective - Date & Time of Evaluation Date of Evaluation: 09/02/18 Time of Evaluation: 13:49 - Subjective Subjective: Podiatry Progress Note for Dr. Pierson 87F seen and evaluated at bedside for left leg wound and healed right heel wound. Patient suffers from dementia and is unable to effectively communicate. Per nursing, no acute overnight events. Per nursing, patient's daughter refused vascular consult Objective - Vital Signs/Intake and Output Vital Signs (last 24 hours): Temp Pulse Resp BP Pulse Ox 98.4 F 98 H 20 108/63 98 09/02/18 07:00 09/02/18 07:00 09/02/18 07:00 09/02/18 07:00 09/02/18 07:00 Intake and Output: 09/02/18 09/02/18 06:59 18:59 Intake Total 300 Output Total 1 Balance 299 - Medications Medications: Current Medications Clindamycin HCl (Cleocin) 300 mg PO TID [facility]; Protocol Last Admin: 09/02/18 11:20 Dose: 300 mg Clopidogrel Bisulfate (Plavix) 75 mg PO DAILY [facility] Last Admin: 09/02/18 10:13 Dose: 75 mg Donepezil HCl (Aricept) 10 mg PO HS [facility] Last Admin: 09/01/18 21:30 Dose: 10 mg Escitalopram Oxalate (Lexapro) 5 mg PO HS [facility] Last Admin: 09/01/18 21:30 Dose: 5 mg Famotidine (Pepcid) 20 mg IVP DAILY [facility] Last Admin: 09/02/18 10:11 Dose: Not Given Folic Acid (Folic Acid) 1 mg PO DAILY [facility] Last Admin: 09/02/18 10:10 Dose: 1 mg Heparin Sodium (Porcine) (Heparin) 5,000 units SC Q12 [facility] Last Admin: 09/02/18 10:10 Dose: 5,000 units Dextrose (Dextrose 5% In Water 1000 Ml) 1,000 mls @ 80 mls/hr IV .[id number] [facility] Stop: 09/02/18 19:16 Last Admin: 09/02/18 10:10 Dose: Not Given Ferric Sodium Gluconate Complex 125 mg/ Sodium Chloride 110 mls @ 110 mls/hr IVPB Q24H [facility] Stop: 09/08/18 14:01 Last Admin: 09/01/18 14:12 Dose: Not Given Memantine (Namenda) 5 mg PO BID [facility] Last Admin: 09/02/18 10:09 Dose: 5 mg Rosuvastatin Calcium (Crestor) 10 mg PO HS [facility] Last Admin: 09/01/18 21:31 Dose: 10 mg Silver Sulfadiazine (Silvadene 1% 20 Gm) 0 ea TOP DAILY [facility] Last Admin: 09/02/18 10:09 Dose: 1 applic Topiramate (Topamax) 25 mg PO BID [facility] Last Admin: 09/02/18 10:13 Dose: 25 mg Zinc Sulfate (Zinc Sulfate 220 Mg Cap) 220 mg PO DAILY [facility] Last Admin: 09/02/18 10:10 Dose: 220 mg - Labs Labs: 09/02/18 06:53 09/02/18 06:53 - Constitutional Appears: Well, Non-toxic, No Acute Distress - Extremities Exam Additional comments: LE focused exam: Vasc: DP/PT pulses fully palpable 2/4 b/l. Skin temperature warm to warm from proximal to distal. CFT < 3 seconds to all digits. No edema noted b/l Neuro: Unable to assess due to patient's mental status Derm: Left leg circumfrential venous stasis ulceration measuring approximately 15 cm in length and 0.1 cm in depth seen on patient's thompson. Wound base is fibrogranular mix with thick, brown drainage noted. Minimal malodor noted. No periwound erythema, tracking, tunneling, undermining or other clinical signs of infection noted. MSK: Unable to assess due to patient's mental status - Neurological Exam Neurological Exam: Alert, Altered. absent: Oriented x3 - Psychiatric Exam Psychiatric exam: Normal Affect, Normal Mood Assessment and Plan - Assessment and Plan (Free Text) Assessment: 87F seen and evaluated at bedside for left leg wound and healed right heel wound Plan: Patient seen and evaluated Plan discussed with Dr. Pierson Afebrile, absent leukocytosis Continue IV abx per ID Wound cx left leg pending Foot xray: Osteopenia, no acute osseous findings Tib/fib xray: No acute findings Continue multipodus boots at all times while in bed Wound dressed with Telfa, ABD, DSD No plan for surgical intervention at this time Podiatry will continue to follow while patient in house
[2018-09-02] MEDS: Ferric Sodium Gluconat Complex 125 MG in Sodium Chloride 0.9% 100 ML IVPB SCH (14:38)
--- NOTE | 2018-09-02 17:34 | CP.PCM.PN ---
Subjective - Date & Time of Evaluation Date of Evaluation: 09/02/18 Time of Evaluation: 17:33 - Subjective Subjective: pt is seen and examined, follow up consult is dictated #[id number] Objective - Vital Signs/Intake and Output Vital Signs (last 24 hours): Temp Pulse Resp BP Pulse Ox 97.9 F 88 20 110/63 97 09/02/18 16:00 09/02/18 16:00 09/02/18 16:00 09/02/18 16:00 09/02/18 16:00 Intake and Output: 09/02/18 09/02/18 06:59 18:59 Intake Total 300 450 Output Total 1 1 Balance 299 449 - Medications Medications: Current Medications Clindamycin HCl (Cleocin) 300 mg PO TID [facility]; Protocol Last Admin: 09/02/18 14:37 Dose: 300 mg Clopidogrel Bisulfate (Plavix) 75 mg PO DAILY [facility] Last Admin: 09/02/18 10:13 Dose: 75 mg Donepezil HCl (Aricept) 10 mg PO [facility] Last Admin: 09/01/18 21:30 Dose: 10 mg Escitalopram Oxalate (Lexapro) 5 mg PO [facility] Last Admin: 09/01/18 21:30 Dose: 5 mg Famotidine (Pepcid) 20 mg IVP DAILY [facility] Last Admin: 09/02/18 10:11 Dose: Not Given Folic Acid (Folic Acid) 1 mg PO DAILY [facility] Last Admin: 09/02/18 10:10 Dose: 1 mg Heparin Sodium (Porcine) (Heparin) 5,000 units SC Q12 [facility] Last Admin: 09/02/18 10:10 Dose: 5,000 units Dextrose (Dextrose 5% In Water 1000 Ml) 1,000 mls @ 80 mls/hr IV .[id number] [facility] Stop: 09/02/18 19:16 Last Admin: 09/02/18 12:30 Dose: 80 mls/hr Ferric Sodium Gluconate Complex 125 mg/ Sodium Chloride 110 mls @ 110 mls/hr IVPB Q24H [facility] Stop: 09/08/18 14:01 Last Admin: 09/02/18 14:38 Dose: 110 mls/hr Memantine (Namenda) 5 mg PO BID [facility] Last Admin: 09/02/18 10:09 Dose: 5 mg Rosuvastatin Calcium (Crestor) 10 mg PO [facility] Last Admin: 09/01/18 21:31 Dose: 10 mg Silver Sulfadiazine (Silvadene 1% 20 Gm) 0 ea TOP DAILY [facility] Last Admin: 09/02/18 10:09 Dose: 1 applic Topiramate (Topamax) 25 mg PO BID [facility] Last Admin: 09/02/18 10:13 Dose: 25 mg Zinc Sulfate (Zinc Sulfate 220 Mg Cap) 220 mg PO DAILY [facility] Last Admin: 09/02/18 10:10 Dose: 220 mg - Labs Labs: 09/02/18 06:53 09/02/18 06:53
--- NOTE | 2018-09-02 19:05 | CP.PCM.CON ---
History of Present Illness - History of Present Illness History of Present Illness: 87F with PMH Alzheimer's Disease, Anemia, Arthritis (knees l>r), Dementia, HTN, Hypercholesterolemia, Rheumatoid Arthritis seen at bedside for left leg ulceration and right heel ulcer. According to her daughter, patient has suffered from her wounds for several years and has been seeing Dr. Pierson for regular dressing changes. Family refused aggressive measures including amputation Referred for ID eval and antibiotic management Patient is demented with contractures and chronic leg wounds Review of Systems - Review of Systems Systems not reviewed;Unavailable: Altered Mental Status All systems: reviewed and no additional remarkable complaints except - Constitutional Constitutional: As Per HPI - EENT Eyes: absent: As Per HPI, Blind Spots, Blurred Vision, Change in Vision, Decreased Night Vision, Diplopia, Discharge, Dry Eye, Exophthalmos, Floaters, I rritation, Itchy Eyes, Loss of Peripheral Vision, Pain, Photophobia, Requires Corrective Lenses, Sees Flashes, Spots in Vision, Tunnel Vision, Other Visual Disturbances, Loss of Vision, Other Ears: absent: As Per HPI, Decreased Hearing, Ear Discharge, Ear Pain, Tinnitus, Abnormal Hearing, Disequilibrium, Dizziness, Other Nose/Mouth/Throat: absent: As Per HPI, Epistaxis, Nasal Congestion, Nasal Discharge, Nasal Obstruction, Nasal Trauma, Nose Pain, Post Nasal Drip, Sinus Pain, Sinus Pressure, Bleeding Gums, Change in Voice, Dental Pain, Dry Mouth, Dysphagia, Halitosis, Hoarsness, Lip Swelling, Mouth Lesions, Mouth Pain, Odynophagia, Sore Throat, Throat Swelling, Tongue Swelling, Facial Pain, Neck Pain, Neck Mass, Other - Breasts Breasts: absent: As Per HPI, Change in Shape, Mass, Pain, Nipple Discharge, Nipple Inversion, Skin Changes, Swelling, Other - Cardiovascular Cardiovascular: absent: As Per HPI, Acrocyanosis, Chest Pain, Chest Pain at Rest, Chest Pain with Activity, Claudication, Diaphoresis, Dyspnea, Dyspnea on Exertion, Edema, Irregular Heart Rhythm, Pain Radiating to Arm/Neck/Jaw, Leg Edema, Leg Ulcers, Lightheadedness, Orthopnea, Palpitations, Paroxysmal Nocturnal Dyspnea, Pedal Edema, Radiating Pain, Rapid Heart Rate, Slow Heart Rate, Syncope, Other - Respiratory Respiratory: absent: As Per HPI, Cough, Dyspnea, Hemoptysis, Dyspnea on Exertion, Wheezing, Snoring, Stridor, Pain on Inspiration, Chest Congestion, Excessive Mucous Production, Change in Mucous Color, Pain with Coughing, Other - Gastrointestinal Gastrointestinal: absent: As Per HPI, Abdominal Pain, Belching, Bloating, Change in Bowel Habits, Change in Stool Character, Coffee Ground Emesis, Constipation, Cramping, Diarrhea, Dyspepsia, Dysphagia, Early Satiety, Excessive Flatus, Fecal Incontinence, Heartburn, Hematemesis, Hematochezia, Loose Stools, Melena, Nausea, Odynophagia, Temesmus, Vomiting, Other - Genitourinary Genitourinary: absent: As Per HPI, Change in Urinary Stream, Difficulty Urinating, Dysuria, Flank Pain, Hematuria, Pyuria, Nocturia, Urinary Incontinence, Urinary Frequency, Urinary Hesitance, Urinary Urgency, Voiding Freq/Small Amts, Freq UTI, Hx Renal/Bladder Calculi, Hx /Renal Surgery, Bladder Distension, Other - Reproductive: Female Reproductive:Female: absent: As Per HPI, Amenorrhea, Amenorrhea/ Control, Currently Menstual, Cycle <21 Days, Cycle >35 Days, Cycle Variable, Menses 1-7 Days, Menses >/= 8 Days, Menses Variable, Cycle > 4 Weeks Between, No Menses for 6 Months, Heavy Menses, Light Menses, Normal Menses, Spotting Between Cycles, S/P Hysterectomy, Menopausal, Post Menopausal, Premenarche, Abnormal Vaginal Bleeding, Dysmenorrhea, Dyspareunia, Genital Lesions, Genital Pruritis, Pelvic Pain, Prolapse Symptoms, Sexual Dysfunction, Vaginal Discharge, Vaginal Dryness, Vaginal Odor, Vaginal Pruritis, Other - Menstruation Menstruation: absent: As Per HPI, Amenorrhea, Amenorrhea/ Control, Currently Menstual, Cycle <21 Days, Cycle >35 Days, Cycle Variable, Menses 1-7 Days, Menses >/= 8 Days, Menses Variable, Cycle > 4 Weeks Between, No Menses for 6 Months, Heavy Menses, Light Menses, Normal Menses, Spotting Between Cycles, S/P Hysterectomy, Menopausal, Post Menopausal, Premenarche, Abnormal Vaginal Bleeding, Dysmenorrhea, Other - Musculoskeletal Musculoskeletal: As Per HPI - Integumentary Integumentary: As Per HPI, Skin Pain, Wounds - Neurological Neurological: As Per HPI. absent: Abnormal Gait, Abnormal Hearing, Abnormal Movements, Abnormal Speech, Behavioral Changes, Burning Sensations, Confusion, Convulsions, Disequilibrium, Dizziness, Numbness, Focal Weakness, Frequent Falls, Headaches, Lack of Coordination, Loss of Vision, Memory Loss, Paresthesias, Radicular Pain, Restless Legs, Sensory Deficit, Syncope, Tingling, Tremor, Vertigo, Weakness, Other Visual Disturbances, Other - Psychiatric Psychiatric: absent: As Per HPI, Abnormal Sleep Pattern, Anhedonia, Anxiety, Auditory Hallucinations, Behavioral Changes, Change in Appetite, Change in Libido, Confusion, Depression, Difficulty Concentrating, Hallucinations, Homicidal Ideation, Hopelessness, Irritability, Memory Loss, Mood Swings, Panic Attacks, Paranoia, Suicidal Ideation, Visual Hallucinations, Tactile Hallucinations, Other - Endocrine Endocrine: absent: As Per HPI, Change in Body Appearance, Change in Libido, Cold Intolorance, Deepening of Voice, Excessive Sweating, Fatigue, Flushing, Heat Intolorance, Increase in Ring/Shoe/Hat Size, Palpitations, Polydipsia, Polyphagia, Polyuria, Other - Hematologic/Lymphatic Hematologic: absent: As Per HPI, Easy Bleeding, Easy Bruising, Lymphadenopathy, Other Past Patient History - Past Medical History & Family History Past Medical History?: Yes - Past Social History Smoking Status: Former Smoker - CARDIAC Hx Pacemaker: No - PULMONARY Hx Respiratory Disorders: No Other/Comment: FORMER SMOKER - NEUROLOGICAL Hx Alzheimer's Disease: Yes Hx Dementia: Yes - HEENT Hx HEENT Problems: No - RENAL Hx Chronic Kidney Disease: No - ENDOCRINE/METABOLIC Hx Endocrine Disorders: No - HEMATOLOGICAL/ONCOLOGICAL Hx Cancer: No - INTEGUMENTARY Hx Dermatological Problems: Yes Other/Comment: LEFT FOOT WOUND - MUSCULOSKELETAL/RHEUMATOLOGICAL Hx Arthritis: Yes (KNEE L>R; B/L ANKLE) Hx Rheumatoid Arthritis: Yes (B/L LE) - GASTROINTESTINAL Hx Gastrointestinal Disorders: No - GENITOURINARY/GYNECOLOGICAL Hx Genitourinary Disorders: Yes Hx Incontinence: Yes - PSYCHIATRIC Hx Substance Use: No - SURGICAL HISTORY Hx Mastectomy: No - ANESTHESIA Hx Anesthesia: Yes Hx Anesthesia Reactions: No Hx Malignant Hyperthermia: No Meds Allergies/Adverse Reactions: Allergies Allergy/AdvReac Type Severity Reaction Status Date / Time No Known Allergies Allergy Verified 03/23/17 11:41 - Medications Medications: Current Medications Clopidogrel Bisulfate (Plavix) 75 mg PO DAILY [facility] Last Admin: 09/02/18 10:13 Dose: 75 mg Donepezil HCl (Aricept) 10 mg PO HS [facility] Last Admin: 09/01/18 21:30 Dose: 10 mg Escitalopram Oxalate (Lexapro) 5 mg PO HS [facility] Last Admin: 09/01/18 21:30 Dose: 5 mg Famotidine (Pepcid) 20 mg IVP DAILY [facility] Last Admin: 09/02/18 10:11 Dose: Not Given Folic Acid (Folic Acid) 1 mg PO DAILY [facility] Last Admin: 09/02/18 10:10 Dose: 1 mg Heparin Sodium (Porcine) (Heparin) 5,000 units SC Q12 [facility] Last Admin: 09/02/18 10:10 Dose: 5,000 units Ferric Sodium Gluconate Complex 125 mg/ Sodium Chloride 110 mls @ 110 mls/hr IVPB Q24H [facility] Stop: 09/08/18 14:01 Last Admin: 09/02/18 14:38 Dose: 110 mls/hr Potassium Chloride 10 meq/ (Dextrose/Sodium Chloride) 1,005 mls @ 75 mls/hr IV .[id number] [facility] Piperacillin Sod/Tazobactam Sod (Zosyn 3.375 Gm Iv Premix) 3.375 gm in 50 mls @ 100 mls/hr IVPB Q8 [facility]; Protocol Memantine (Namenda) 5 mg PO BID [facility] Last Admin: 09/02/18 17:56 Dose: 5 mg Rosuvastatin Calcium (Crestor) 10 mg PO HS [facility] Last Admin: 09/01/18 21:31 Dose: 10 mg Silver Sulfadiazine (Silvadene 1% 20 Gm) 0 ea TOP DAILY [facility] Last Admin: 09/02/18 10:09 Dose: 1 applic Topiramate (Topamax) 25 mg PO BID [facility] Last Admin: 09/02/18 17:56 Dose: 25 mg Zinc Sulfate (Zinc Sulfate 220 Mg Cap) 220 mg PO DAILY [facility] Last Admin: 09/02/18 10:10 Dose: 220 mg Physical Exam - Constitutional Appears: No Acute Distress, Confused, Cachectic, Chronically Ill - Head Exam Head Exam: ATRAUMATIC, NORMAL INSPECTION, NORMOCEPHALIC - Eye Exam Eye Exam: PERRL. absent: Scleral icterus Pupil Exam: NORMAL ACCOMODATION - ENT Exam ENT Exam: Mucous Membranes Dry, Normal External Ear Exam, Normal Oropharynx - Neck Exam Neck exam: Negative for: Lymphadenopathy - Respiratory Exam Respiratory Exam: Decreased Breath Sounds, Prolonged Expiratory Phase, Rhonchi - Cardiovascular Exam Cardiovascular Exam: REGULAR RHYTHM, +S1, +S2 - GI/Abdominal Exam GI & Abdominal Exam: Diminished Bowel Sounds, Soft. absent: Tenderness - Rectal Exam Rectal Exam: Deferred - Exam Exam: NORMAL INSPECTION - Extremities Exam Extremities exam: Negative for: calf tenderness - Back Exam Back exam: absent: CVA tenderness (L), CVA tenderness (R), paraspinal tenderness - Neurological Exam Neurological exam: Altered, CN II-XII Intact - Psychiatric Exam Psychiatric exam: Depressed - Skin Additional comments: wounds to lower extremities with some malodor pulses diminished bilaterally Left leg circumfrential venous stasis ulceration measuring approximately 15 cm in length and 0.1 cm in depth seen on patient's thompson. Wound base is fibrogranular mix with thick, brown drainage noted. Minimal malodor noted. No periwound erythema, tracking, tunneling, undermining or other clinical signs of infection noted. Results - Vital Signs Recent Vital Signs: Last Vital Signs Temp 97.9 F 09/02/18 16:00 Pulse 88 09/02/18 16:00 Resp 20 09/02/18 16:00 BP 110/63 09/02/18 16:00 Pulse Ox 97 09/02/18 16:00 - Labs Result Diagrams: 09/02/18 06:53 09/02/18 06:53 Labs: Laboratory Results - last 24 hr 09/02/18 09/02/18 06:53 06:53 WBC 7.2 RBC 3.57 L Hgb 9.7 L Hct 30.5 L MCV 85.4 MCH 27.3 MCHC 32.0 L RDW 18.3 H Plt Count 192 MPV 7.8 Neut % (Auto) 65.5 Lymph % (Auto) 28.0 [place] % (Auto) 5.8 Eos % (Auto) 0.5 Baso % (Auto) 0.2 Neut # (Auto) 4.7 Lymph # (Auto) 2.0 [place] # (Auto) 0.4 Eos # (Auto) 0.0 Baso # (Auto) 0.0 Sodium 145 Potassium 3.5 L Chloride 116 H Carbon Dioxide 23 Anion Gap 9 L BUN 26 H Creatinine 1.5 H Est GFR ( Amer) 40 Est GFR (Non-Af Amer) 33 Random Glucose 124 H Calcium 7.7 L Total Bilirubin 0.5 AST 38 H D ALT 35 Alkaline Phosphatase 99 Total Protein 5.3 L Albumin 2.4 L Globulin 2.9 Albumin/Globulin Ratio 0.8 L Assessment & Plan (1) Dementia Status: Acute (2) Diabetes mellitus Status: Acute (3) Foot ulcer Status: Acute (4) HTN (hypertension) Status: Acute (5) Hypercholesterolemia Status: Acute (6) New onset a-fib Status: Acute (7) Renal insufficiency Status: Acute (8) Venous ulcer Status: Acute - Assessment and Plan (Free Text) Assessment: stasis ulcers in an 87 yo female with dementia and DM with some CKD wounds with some malodor - may need debridement Family refusing aggressive measures Agree with conservative management and IV antibioitics with wound care
[2018-09-02] MEDS: Vancomycin 1 gm/NS 200 ml 1 GM/200 ML BAG IVPB SCH (20:16)
[2018-09-02] MEDS: Potassium Chloride 10 MEQ in Dextrose 5%/0.45% NS 1,000 ML IV SCH (20:16)
[2018-09-02] MEDS ORDERED: Piperacill/Tazo 3.375gm in Dex 3.375 GM/50 ML BAG IVPB SCH (22:00)
--- NOTE | 2018-09-02 22:58 | PN ---
DATE: 09/02/2018 SUBJECTIVE: Today, the patient is at her usual state of health, but is not responding to questions, but does open eyes and in no apparent respiratory distress or any distress. The daughter is at the bedside. PHYSICAL EXAMINATION VITAL SIGNS: Blood pressure 110/63, pulse 58, respirations 20, temperature 99.9. NECK: There is stiffness of the neck. LUNGS: Poor inspiratory effort, but there is no rales noted. HEART: Regular rate and rhythm. Positive murmur. ABDOMEN: Soft. Positive bowel sounds. EXTREMITIES: There is contracture of the knee and there is a chronic ulcer of the left leg. LABORATORY DATA: The blood culture show Staph aureus coagulase negative. Labs showed sodium 145, potassium 3.5, chloride 116, BUN 26, creatinine 1.5, albumin is 0.8. WBC is 7.7, hemoglobin is 9.7, hematocrit 30.5, and platelets 192. PLAN: So, the plan is we are going to change the D5 to half normal saline and potassium will be given and the case was discussed with daughter, and the patient will be discharged home possibly in the a.m. The patient was seen and examined with Umu Medeiros, the nurse practitioner. Jaquan Graf MD
--- NOTE | 2018-09-03 01:03 | PN ---
DATE: 09/02/2018 FOLLOWUP RENAL CONSULTATION LOCATION: The patient is located in room 351, bed A. REQUESTED BY: Jaquan Graf MD REASON FOR FOLLOWUP: Acute renal failure, hypernatremia. SUBJECTIVE: Mrs. Wright is an 87-year-old elderly very cachectic, thin-built female with a past medical history significant for Alzheimer's dementia, anemia, arthritis, dementia, hypertension, hyperlipidemia, who was brought in by the patient's daughter with decreased mental status from her baseline and also decreased p.o. intake and found to have hypernatremia and also low H and H, requiring transfusion of 2 units packed RBC on admission, and started on initially IV fluids of D5 normal saline for hypotension and subsequently changed to D5W. The patient is not in acute distress. The patient's daughter is at bedside and feeding, tolerating p.o. intake and not in distress. PHYSICAL EXAMINATION: VITAL SIGNS: As follows: Blood pressure 110/63, pulse 88, respirations 20, temperature 97.9, saturation 97%. Height 5 feet and weight is 100 pounds. GENERAL: Mrs. Wright is an 87-year-old elderly very cachectic, thin-built female not in distress. HEENT: Pupils normal, reactive to light and accommodation. Conjunctivae pink. Sclerae anicteric. Tongue is moist and trachea is midline. LUNGS: Symmetric on both sides. Bilateral breath sounds present. Clear to auscultation. CVS: Blaine at the fifth intercostal space, midclavicular line. S1 and S2 audible. No murmur or gallop. ABDOMEN: Normal in appearance. Soft, tympanitic. No guarding. No rigidity. No hepatosplenomegaly. HOG SCRAPER: The patient is awake, oriented x0-1, able to recognize daughter. Sensory system is within normal limits. Motor system, contracted both upper and lower extremities. EXTREMITIES: Bilateral foot ulcers. The patient has a dressing to the both feet. CURRENT MEDICATIONS: Include as follows, Aricept 10 mg p.o. at bedtime, Crestor 10 mg at bedtime, Ferrlecit 125 mg every 24 hours, folic acid 1 mg daily, subcu heparin 5000 units every 12 hours, and Lexapro 5 mg daily, Namenda 5 mg p.o. b.i.d., Pepcid 20 mg IV daily, Plavix 75 mg daily, IV fluids D5W at 75 mL/hour, Silvadene cream topical, Topamax 25 mg p.o. b.i.d., vancomycin 1 g every 24 hours, zinc sulfate 220 mg p.o. daily, Zosyn 3.375 g IV every 8 hours. LABORATORY DATA: Include as follows as of 09/02/2018, WBC 7.2, hemoglobin 9.7, hematocrit is 30.5, platelets 192. Sodium 145, potassium 3.5, chloride 116, CO2 of 23, BUN 26, creatinine 1.5, glucose 124, calcium 7.7. Total bili 0.5, AST 38, ALT 35, alkaline phosphatase 99, total protein 5.3, albumin is 2.4. ASSESSMENT AND PLAN: In summary, Mrs. Wright is an 87-year-old elderly very cachectic female with a history of hypertension, dementia, arthritis, anemia, bedridden with contraction of the both upper and lower extremities, was brought in by family with altered mental status from the baseline, increased blood urea nitrogen and creatinine, low hemoglobin and hematocrit, and increased serum sodium. 1. Hypernatremia, most likely secondary to intravascular depletion, secondary to dehydration. 2. Anemia, most likely anemia of chronic kidney disease, cannot rule out iron-deficiency anemia, status post transfusion of 2 units of packed red blood cell. Continue intravenous Ferrlecit. Hemoglobin and hematocrit are stable. 3. Renal failure, [id number] kidney disease, most likely secondary to intravascular depletion and prerenal, cannot rule out acute tubular necrosis. Renal function is slowly improving. 4. Bilateral foot ulcers, continue intravenous antibiotics as per Dr. Graf, vancomycin and Zosyn, and try to adjust Zosyn to renal dose. Consider to decrease Zosyn to 2.25 g every 8 hours. Thank you for allowing me to participate in your patient's care. Mark Islas MD
[2018-09-03 07:01] LABS: CALCIUM 7.6 mg/dl (8.6-10.4)
[2018-09-03] MEDS: Potassium Chloride 10 MEQ in Dextrose 5%/0.45% NS 1,000 ML IV SCH ×2 (07:14→14:11)
[2018-09-03 07:17] LABS: BASO % 0.3 % (0.0-2.0); EOS % 0.8 % (0.0-4.0); HEMOGLOBIN 9.1 g/dL (11.0-16.0); LYMPH # 1.6 K/uL (1.0-4.3); LYMPH % 25.5 % (20.0-40.0); MEAN CELL VOLUME 84.8 fL (81.0-99.0); MEAN CORPUSCULAR HEMOGLOBIN 26.7 pg (27.0-31.0); MEAN CORPUSCULAR HGB CONC 31.6 g/dL (33.0-37.0); MEAN PLATELET VOLUME 7.7 fL (7.2-11.7); MONO # 0.3 K/uL (0.0-0.8); MONO % 4.9 % (0.0-10.0); NEUT # 4.3 K/uL (1.8-7.0); NEUT % 68.5 % (50.0-75.0); NRBC % 0.1 % (0.0-2.0); RBC 3.41 Mil/uL (3.80-5.20); RED CELL DISTRIBUTION WIDTH 18.8 % (11.5-14.5); WHITE BLOOD COUNT 6.2 K/uL (4.8-10.8)
[2018-09-03] MEDS ORDERED: Potassium Chloride 20 mEq/15 ml LIQ UD PO ONE (08:30)
--- NOTE | 2018-09-03 09:21 | CP.PCM.PN ---
Subjective - Date & Time of Evaluation Date of Evaluation: 09/03/18 Time of Evaluation: 09:21 - Subjective Subjective: pt is seeen and examined, follow up consult is dictated #[id number] Objective - Vital Signs/Intake and Output Vital Signs (last 24 hours): Temp Pulse Resp BP Pulse Ox 98.2 F 105 H 20 108/64 100 09/03/18 00:00 09/03/18 00:00 09/03/18 00:00 09/03/18 00:00 09/03/18 00:00 Intake and Output: 09/03/18 09/03/18 06:59 18:59 Intake Total 400 600 Output Total 0 Balance 400 600 - Medications Medications: Current Medications Clopidogrel Bisulfate (Plavix) 75 mg PO DAILY [facility] Last Admin: 09/02/18 10:13 Dose: 75 mg Donepezil HCl (Aricept) 10 mg PO HS [facility] Last Admin: 09/02/18 22:10 Dose: 10 mg Escitalopram Oxalate (Lexapro) 5 mg PO HS [facility] Last Admin: 09/02/18 22:10 Dose: 5 mg Famotidine (Pepcid) 20 mg IVP DAILY [facility] Last Admin: 09/02/18 10:11 Dose: Not Given Folic Acid (Folic Acid) 1 mg PO DAILY [facility] Last Admin: 09/02/18 10:10 Dose: 1 mg Heparin Sodium (Porcine) (Heparin) 5,000 units SC Q12 [facility] Last Admin: 09/02/18 22:11 Dose: 5,000 units Ferric Sodium Gluconate Complex 125 mg/ Sodium Chloride 110 mls @ 110 mls/hr IVPB Q24H [facility] Stop: 09/08/18 14:01 Last Admin: 09/02/18 14:38 Dose: 110 mls/hr Potassium Chloride 10 meq/ (Dextrose/Sodium Chloride) 1,005 mls @ 75 mls/hr IV .[id number] [facility] Last Admin: 09/03/18 07:14 Dose: Not Given Vancomycin/Sodium Chloride (Vancomycin 1 Gm/Ns 200 Ml) 1 gm in 200 mls @ 133 mls/hr IVPB Q24H [facility]; Protocol Stop: 09/07/18 20:01 Last Admin: 09/02/18 20:16 Dose: 133 mls/hr Piperacillin Sod/Tazobactam Sod (Zosyn 2.25 Gm Iv Premix) 2.25 gm in 50 mls @ 100 mls/hr IVPB Q8H [facility]; Protocol Memantine (Namenda) 5 mg PO BID [facility] Last Admin: 09/02/18 17:56 Dose: 5 mg Rosuvastatin Calcium (Crestor) 10 mg PO HS [facility] Last Admin: 09/02/18 22:10 Dose: 10 mg Silver Sulfadiazine (Silvadene 1% 20 Gm) 0 ea TOP DAILY [facility] Last Admin: 09/02/18 10:09 Dose: 1 applic Topiramate (Topamax) 25 mg PO BID [facility] Last Admin: 09/02/18 17:56 Dose: 25 mg Zinc Sulfate (Zinc Sulfate 220 Mg Cap) 220 mg PO DAILY [facility] Last Admin: 09/02/18 10:10 Dose: 220 mg - Labs Labs: 09/03/18 06:33 09/03/18 06:33
[2018-09-03] MEDS: Silver Sulfadiazine 1% Cream (20 gm) TOP SCH (10:58)
[2018-09-03] MEDS: Piperacill/Tazo 2.25gm in Dex 2.25 GM/50 ML BAG IVPB SCH ×2 (13:50→21:34)
[2018-09-03] MEDS: Ferric Sodium Gluconat Complex 125 MG in Sodium Chloride 0.9% 100 ML IVPB SCH (14:26)
[2018-09-03] MEDS: Ferric Sodium Gluconat Complex 62.5 mg/5 ml Vial IVPB SCH (14:42)
--- NOTE | 2018-09-03 19:08 | CP.PCM.PN ---
Subjective - Date & Time of Evaluation Date of Evaluation: 09/03/18 Time of Evaluation: 08:00 - Subjective Subjective: seen at bedside family concerned wounds inspected cultures reviewed Objective - Vital Signs/Intake and Output Vital Signs (last 24 hours): Temp Pulse Resp BP Pulse Ox 98 F 98 H 20 128/68 96 09/03/18 16:00 09/03/18 16:00 09/03/18 16:00 09/03/18 16:00 09/03/18 16:00 Intake and Output: 09/03/18 09/04/18 18:59 06:59 Intake Total 1380 Output Total 0 Balance 1380 - Medications Medications: Current Medications Clopidogrel Bisulfate (Plavix) 75 mg PO DAILY [facility] Last Admin: 09/03/18 10:58 Dose: 75 mg Donepezil HCl (Aricept) 10 mg PO HS [facility] Last Admin: 09/02/18 22:10 Dose: 10 mg Escitalopram Oxalate (Lexapro) 5 mg PO HS [facility] Last Admin: 09/02/18 22:10 Dose: 5 mg Famotidine (Pepcid) 20 mg IVP DAILY [facility] Last Admin: 09/03/18 10:59 Dose: 20 mg Ferric Sodium Gluconate Complex (Ferrlecit) 125 mg IVPB Q24H [facility] Stop: 09/08/18 14:31 Last Admin: 09/03/18 14:42 Dose: 125 mg Folic Acid (Folic Acid) 1 mg PO DAILY [facility] Last Admin: 09/03/18 10:59 Dose: 1 mg Heparin Sodium (Porcine) (Heparin) 5,000 units SC Q12 [facility] Last Admin: 09/03/18 10:59 Dose: 5,000 units Potassium Chloride 10 meq/ (Dextrose/Sodium Chloride) 1,005 mls @ 75 mls/hr IV .[id number] [facility] Last Admin: 09/03/18 14:11 Dose: 75 mls/hr Vancomycin/Sodium Chloride (Vancomycin 1 Gm/Ns 200 Ml) 1 gm in 200 mls @ 133 mls/hr IVPB Q24H [facility]; Protocol Stop: 09/07/18 20:01 Last Admin: 09/02/18 20:16 Dose: 133 mls/hr Piperacillin Sod/Tazobactam Sod (Zosyn 2.25 Gm Iv Premix) 2.25 gm in 50 mls @ 100 mls/hr IVPB Q8H [facility]; Protocol Last Admin: 09/03/18 13:50 Dose: 100 mls/hr Memantine (Namenda) 5 mg PO BID [facility] Last Admin: 09/03/18 17:34 Dose: 5 mg Rosuvastatin Calcium (Crestor) 10 mg PO HS [facility] Last Admin: 09/02/18 22:10 Dose: 10 mg Silver Sulfadiazine (Silvadene 1% 20 Gm) 0 ea TOP DAILY [facility] Last Admin: 09/03/18 10:58 Dose: 1 applic Topiramate (Topamax) 25 mg PO BID [facility] Last Admin: 09/03/18 17:35 Dose: 25 mg Zinc Sulfate (Zinc Sulfate 220 Mg Cap) 220 mg PO DAILY [facility] Last Admin: 09/03/18 10:58 Dose: 220 mg - Labs Labs: 09/03/18 06:33 09/03/18 06:33 - Constitutional Appears: Confused, Cachectic, Chronically Ill - Head Exam Head Exam: NORMOCEPHALIC - Eye Exam Eye Exam: absent: Scleral icterus - ENT Exam ENT Exam: Mucous Membranes Dry - Neck Exam Neck Exam: absent: Lymphadenopathy - Respiratory Exam Respiratory Exam: Decreased Breath Sounds - Cardiovascular Exam Cardiovascular Exam: REGULAR RHYTHM - GI/Abdominal Exam GI & Abdominal Exam: Distended, Soft - Rectal Exam Rectal Exam: Deferred - Exam Exam: NORMAL INSPECTION - Extremities Exam Extremities Exam: Pedal Edema Additional comments: multiple wounds - Back Exam Back Exam: absent: CVA tenderness (L), CVA tenderness (R), NORMAL INSPECTION - Neurological Exam Neurological Exam: Alert, Altered, Awake Assessment and Plan (1) Dementia Status: Acute (2) Diabetes mellitus Status: Acute (3) Foot ulcer Status: Acute (4) HTN (hypertension) Status: Acute (5) Hypercholesterolemia Status: Acute (6) New onset a-fib Status: Acute (7) Renal insufficiency Status: Acute (8) Venous ulcer Status: Acute - Assessment and Plan (Free Text) Assessment: family refusing amputation cont iv rx and wound care await cultures
[2018-09-03] MEDS: Vancomycin 1 gm/NS 200 ml 1 GM/200 ML BAG IVPB SCH (19:30)
--- NOTE | 2018-09-04 01:29 | PN ---
DATE: 09/03/2018 LOCATION: Room 351 bed A. REQUESTED BY: Jaquan Graf MD REASON FOR FOLLOW-UP: Hypernatremia and acute renal failure, chronic kidney disease. SUBJECTIVE: Mrs. Wright is an 87-year-old very cachectic, thin-built elderly female with a past medical history significant for hypertension, dementia, arthritis, was bedridden and hyperlipidemia, was brought in by the patient's daughter with altered mental status from the baseline and decreased p.o. intake and the patient was found to have hypernatremia, anemia and renal failure, status post transfusion of 2 units of packed RBCs on admission and started on IV fluids of D5 normal saline, subsequently changed to D5W once the patient was normotensive. The patient is not in distress, tolerating p.o. intake. Her daughter feeds her with a soft diet and the patient is not in distress, tries to verbalize but not following commands. PHYSICAL EXAMINATION: VITAL SIGNS: Blood pressure this morning 117/56, pulse 91, respiration 20, temperature 97.4, saturation 94%. Height 5 feet, weight is 100 pounds. GENERAL: Mrs. Wright is an 87 years old elderly, thin-built, very cachectic female not in distress. HEENT: Pupils normal, reactive to light and accommodation. Conjunctivae pink. Sclerae anicteric and is moist. Trachea is midline. LUNGS: Symmetric on both sides. Bilateral breath sounds present. Clear to auscultation. CARDIOVASCULAR SYSTEM: [place] at the fifth intercostal space, midclavicular area. No murmur or gallop. ABDOMEN: Normal in appearance, scaphoid, soft, nontender. Bowel sounds present. No hepatosplenomegaly. No abdominal bruit. CENTRAL NERVOUS SYSTEM: The patient is awake, confused, oriented x0 to 1. EXTREMITIES: No cyanosis, no clubbing. The patient has a dressing to both foot and both legs are contracted. CURRENT MEDICATIONS: Include as follows Aricept 10 mg p.o. at bedtime, Crestor 10 mg at bedtime, ferric gluconate 125 mg every 24 hours, folic acid 1 mg daily, subcu heparin 5000 every 12 hours, Lexapro 5 mg at bedtime, Namenda 5 mg p.o. b.i.d., Pepcid 20 mg IV daily, Plavix 75 mg daily, IV fluids D5 normal saline with 10 mEq KCl in each liter started by nurse practitioner Umu at 75 mL/hour yesterday at 05:45 p.m., Topamax 25 mg p.o. b.i.d., vancomycin 1 g every 24 hours, zinc sulfate 220 mg p.o. daily, and Zosyn 2.25 g IV every 8 hours. LABORATORY DATA: Include as follows as of 09/03/2018, WBC 6.2, hemoglobin 9.1, hematocrit is 28.9, platelets 178. Sodium 142, potassium 3.4, chloride 114, CO2 of 24, BUN 23, creatinine 1.4, glucose 146, calcium 7.6. As of 09/02/2018, total protein 5.3, albumin is 2.4. Blood culture as of 08/29/2018 positive for staph coag negative x1 set and second one is negative as of day 5. Wound cultures positive for gram-negative rods and gram positive cocci as of 09/01/2018. Blood culture x2 negative as of 09/02/2018, day 1. ASSESSMENT AND PLAN: In summary, Mrs. Wright is an 87 years old elderly female, thin built and cachectic with history of hypertension, hyperlipidemia, arthritis and dementia, became bedridden and contracted both lower extremities was admitted with bilateral leg ulcers and increased BUN and creatinine, anemia and hypernatremia. 1. Hypernatremia secondary to dehydration and intravascular depletion. Serum sodium is improving nicely, although sodium is 142. 2. Hypokalemia. 3. Acute on chronic kidney disease. Renal function is improving. 4. Anemia secondary to most likely anemia of chronic kidney disease, cannot rule out iron-deficiency anemia with saturation of 15%, and ferritin was 659. 5. Dementia. 6. Bilateral leg ulcers. Continue IV fluids, D5 half normal saline with 10 mEq KCl and continue monitor electrolytes and continue IV antibiotics and check magnesium level in a.m. We will follow with you. Thank you for allowing me to participate in your patient's care. Mark Isals MD
--- NOTE | 2018-09-04 01:41 | PN ---
DATE: 09/03/2018 SUBJECTIVE: Today, the patient is somewhat more awake, but not responding correctly to questions and not giving any information. PHYSICAL EXAMINATION: VITAL SIGNS: The patient's blood pressure is 128/68, pulse 98, respirations 20, temperature 98 degrees Fahrenheit. NECK: Has some stiffness which is worse. LUNGS: Poor inspiratory effort. HEART: Regular rate and rhythm and positive extra systole. ABDOMEN: Soft, nontender. No palpable mass. 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 LABORATORY DATA: The patient has lab done. WBC is 6.2, hemoglobin 9.1, hematocrit 28.9, and platelet is 178. Chemistry: Sodium 142, potassium 3.4, chloride 114, BUN 7, creatinine 1.4, and glucose 146. The patient has blood culture and wound culture, and blood culture showed coagulase-negative Staph aureus and sensitive to clindamycin, erythromycin and vancomycin. ASSESSMENT AND PLAN: The patient was treated in the office as per Dr. Reyes, the ID, who put her on vancomycin. We are going to continue this therapy. The case was discussed with Umu Medeiros, the nurse practitioner. Jaquan Graf MD
[2018-09-04] MEDS: Piperacill/Tazo 2.25gm in Dex 2.25 GM/50 ML BAG IVPB SCH ×3 (04:20→21:50)
[2018-09-04 07:00] LABS: CALCIUM 7.5 mg/dl (8.6-10.4)
[2018-09-04] MEDS: Potassium Chloride 10 MEQ in Dextrose 5%/0.45% NS 1,000 ML IV SCH ×3 (07:48→23:20)
[2018-09-04] MEDS: Silver Sulfadiazine 1% Cream (20 gm) TOP SCH (10:30)
[2018-09-04] MEDS: Potassium Chloride 20 mEq/15 ml LIQ UD PO SCH (10:31)
--- NOTE | 2018-09-04 12:05 | CP.PCM.PN ---
Subjective - Date & Time of Evaluation Date of Evaluation: 09/04/18 Time of Evaluation: 12:05 - Subjective Subjective: Podiatry Progress Note for Dr. Pierson 87 y/o female seen and evaluated at bedside for left leg necrotic wound and healed right heel wound. Patient suffers from dementia and is unable to effectively communicate. Patient slightly combative on visit. Per nursing, no acute overnight events. Per nursing, patient's daughter refusing vascular consultation. Objective - Vital Signs/Intake and Output Vital Signs (last 24 hours): Temp Pulse Resp BP Pulse Ox 98.6 F 101 H 20 118/67 96 09/04/18 08:20 09/04/18 08:20 09/04/18 08:20 09/04/18 08:20 09/04/18 08:20 Intake and Output: 09/04/18 09/04/18 06:59 18:59 Intake Total 700 Output Total 0 Balance 700 - Medications Medications: Current Medications Clopidogrel Bisulfate (Plavix) 75 mg PO DAILY [facility] Last Admin: 09/04/18 10:32 Dose: 75 mg Donepezil HCl (Aricept) 10 mg PO HS [facility] Last Admin: 09/03/18 21:31 Dose: 10 mg Escitalopram Oxalate (Lexapro) 5 mg PO [facility] Last Admin: 09/03/18 21:31 Dose: 5 mg Famotidine (Pepcid) 20 mg PO DAILY [facility] Last Admin: 09/04/18 10:32 Dose: 20 mg Ferric Sodium Gluconate Complex (Ferrlecit) 125 mg IVPB Q24H [facility] Stop: 09/08/18 14:31 Last Admin: 09/03/18 14:42 Dose: 125 mg Folic Acid (Folic Acid) 1 mg PO DAILY [facility] Last Admin: 09/04/18 10:32 Dose: 1 mg Heparin Sodium (Porcine) (Heparin) 5,000 units SC Q12 [facility] Last Admin: 09/04/18 10:31 Dose: 5,000 units Potassium Chloride 10 meq/ (Dextrose/Sodium Chloride) 1,005 mls @ 75 mls/hr IV .[id number] [facility] Last Admin: 09/04/18 10:33 Dose: Not Given Vancomycin/Sodium Chloride (Vancomycin 1 Gm/Ns 200 Ml) 1 gm in 200 mls @ 133 mls/hr IVPB Q24H [facility]; Protocol Stop: 09/07/18 20:01 Last Admin: 09/03/18 19:30 Dose: 133 mls/hr Piperacillin Sod/Tazobactam Sod (Zosyn 2.25 Gm Iv Premix) 2.25 gm in 50 mls @ 100 mls/hr IVPB Q8H [facility]; Protocol Last Admin: 09/04/18 12:03 Dose: 100 mls/hr Memantine (Namenda) 5 mg PO BID [facility] Last Admin: 09/04/18 10:31 Dose: 5 mg Potassium Chloride (Potassium Chloride Oral Soln) 20 meq PO DAILY [facility] Stop: 09/07/18 10:01 Last Admin: 09/04/18 10:31 Dose: 20 meq Rosuvastatin Calcium (Crestor) 10 mg PO HS [facility] Last Admin: 09/03/18 21:31 Dose: 10 mg Silver Sulfadiazine (Silvadene 1% 20 Gm) 0 ea TOP DAILY [facility] Last Admin: 09/04/18 10:30 Dose: 1 applic Topiramate (Topamax) 25 mg PO BID [facility] Last Admin: 09/04/18 10:32 Dose: 25 mg Zinc Sulfate (Zinc Sulfate 220 Mg Cap) 220 mg PO DAILY [facility] Last Admin: 09/04/18 10:32 Dose: 220 mg - Labs Labs: 09/03/18 06:33 09/04/18 06:36 - Constitutional Appears: Well, Non-toxic, No Acute Distress - Extremities Exam Additional comments: LE focused exam: Vasc: DP/PT pulses fully palpable 2/4 B/L. Skin temperature warm to warm from proximal to distal. CFT < 3 seconds to all digits. No edema noted B/L Neuro: Unable to assess due to patient's mental status Derm: Left leg circumferential venous stasis ulceration measuring approximately 15 cm in length and 0.1 cm in depth seen on patient's thompson. Wound base is fibrogranular mix with thick, brown drainage noted. Minimal malodor noted. No periwound erythema, tracking, tunneling, undermining or other clinical signs of infection noted. MSK: Unable to assess due to patient's mental status - Neurological Exam Neurological Exam: Alert, Awake, Oriented x3 - Psychiatric Exam Psychiatric exam: Normal Affect, Normal Mood Assessment and Plan - Assessment and Plan (Free Text) Assessment: 87 y/o female with left leg necrotic wound and healed right heel wound Plan: Patient seen and evaluated with Dr. Pierson Continue IV abx per ID Wound cx left leg shows growth of Proteus, Enterococcus Foot xray: Osteopenia, no acute osseous findings Tib/fib xray: No acute findings Continue multipodus boots at all times while in bed Wound dressed with Telfa, ABD, DSD No plan for surgical intervention at this time Podiatry will continue to follow while patient in house
[2018-09-04] MEDS: Ferric Sodium Gluconat Complex 62.5 mg/5 ml Vial IVPB SCH (13:33)
--- NOTE | 2018-09-04 14:05 | CP.PCM.PN ---
Subjective - Date & Time of Evaluation Date of Evaluation: 09/04/18 Time of Evaluation: 14:05 - Subjective Subjective: pt is seen and examined, follow up consult is dictated #[id number] Objective - Vital Signs/Intake and Output Vital Signs (last 24 hours): Temp Pulse Resp BP Pulse Ox 98.6 F 101 H 20 118/67 96 09/04/18 08:20 09/04/18 08:20 09/04/18 08:20 09/04/18 08:20 09/04/18 08:20 Intake and Output: 09/04/18 09/04/18 06:59 18:59 Intake Total 700 Output Total 0 Balance 700 - Medications Medications: Current Medications Clopidogrel Bisulfate (Plavix) 75 mg PO DAILY [facility] Last Admin: 09/04/18 10:32 Dose: 75 mg Donepezil HCl (Aricept) 10 mg PO HS [facility] Last Admin: 09/03/18 21:31 Dose: 10 mg Escitalopram Oxalate (Lexapro) 5 mg PO HS [facility] Last Admin: 09/03/18 21:31 Dose: 5 mg Famotidine (Pepcid) 20 mg PO DAILY [facility] Last Admin: 09/04/18 10:32 Dose: 20 mg Ferric Sodium Gluconate Complex (Ferrlecit) 125 mg IVPB Q24H [facility] Stop: 09/08/18 14:31 Last Admin: 09/04/18 13:33 Dose: 125 mg Folic Acid (Folic Acid) 1 mg PO DAILY [facility] Last Admin: 09/04/18 10:32 Dose: 1 mg Heparin Sodium (Porcine) (Heparin) 5,000 units SC Q12 [facility] Last Admin: 09/04/18 10:31 Dose: 5,000 units Potassium Chloride 10 meq/ (Dextrose/Sodium Chloride) 1,005 mls @ 75 mls/hr IV .[id number] [facility] Last Admin: 09/04/18 10:33 Dose: Not Given Vancomycin/Sodium Chloride (Vancomycin 1 Gm/Ns 200 Ml) 1 gm in 200 mls @ 133 mls/hr IVPB Q24H [facility]; Protocol Stop: 09/07/18 20:01 Last Admin: 09/03/18 19:30 Dose: 133 mls/hr Piperacillin Sod/Tazobactam Sod (Zosyn 2.25 Gm Iv Premix) 2.25 gm in 50 mls @ 100 mls/hr IVPB Q8H [facility]; Protocol Last Admin: 09/04/18 12:03 Dose: 100 mls/hr Memantine (Namenda) 5 mg PO BID [facility] Last Admin: 09/04/18 10:31 Dose: 5 mg Potassium Chloride (Potassium Chloride Oral Soln) 20 meq PO DAILY [facility] Stop: 09/07/18 10:01 Last Admin: 09/04/18 10:31 Dose: 20 meq Rosuvastatin Calcium (Crestor) 10 mg PO HS [facility] Last Admin: 09/03/18 21:31 Dose: 10 mg Silver Sulfadiazine (Silvadene 1% 20 Gm) 0 ea TOP DAILY [facility] Last Admin: 09/04/18 10:30 Dose: 1 applic Topiramate (Topamax) 25 mg PO BID [facility] Last Admin: 09/04/18 10:32 Dose: 25 mg Zinc Sulfate (Zinc Sulfate 220 Mg Cap) 220 mg PO DAILY [facility] Last Admin: 09/04/18 10:32 Dose: 220 mg - Labs Labs: 09/03/18 06:33 09/04/18 06:36
[2018-09-04] MEDS: Vancomycin 1 gm/NS 200 ml 1 GM/200 ML BAG IVPB SCH (19:00)
--- NOTE | 2018-09-04 21:00 | PN ---
DATE: 09/04/2018 SUBJECTIVE: The patient is seen this afternoon. She is awake, but not responding appropriately to questions. No apparent distress. Her daughter is at the bedside. PHYSICAL EXAMINATION: VITAL SIGNS: Blood pressure is 182/67, pulse 101, respirations 20, and temperature 98.6. NECK: There is some sort of stiffness. LUNGS: Poor inspiratory effort, but there are no rales. HEART: Regular rate and rhythm. Positive murmur. ABDOMEN: Soft. Positive bowel sounds. EXTREMITIES: There is contracture of the knees. LABORATORY DATA: Labs shows that was done yesterday WBC was 6.2. I have sent for MRI, but the patient was unable to cooperate for the MRI. ASSESSMENT AND PLAN: Plan is that we are going to continue antibiotic intravenously. The case was discussed with the daughter. We are going to continue current treatment. Wound care, Dr. Pierson; Infectious Disease Dr. Reyes, and Renal Dr. Islas. Jaquan Graf MD
[2018-09-05] MEDS: Potassium Chloride 10 MEQ in Dextrose 5%/0.45% NS 1,000 ML IV SCH ×3 (01:00→15:03)
[2018-09-05 01:20] VITALS: RESP 20
--- NOTE | 2018-09-05 03:39 | PN ---
DATE: 09/04/2018 FOLLOWUP RENAL CONSULTATION LOCATION: The patient is located in room 351, bed A. REQUESTED BY: Jaquan Graf MD REASON FOR FOLLOWUP: Hypernatremia, acute renal failure, anemia. SUBJECTIVE: Mrs. Wright is an 87-year-old elderly very thin-built, cachectic female with a history of hypertension, dementia, arthritis, hyperlipidemia, anemia, who was admitted with chief complaints of altered mental status from the baseline and decreased p.o. intake from the patient's daughter. The patient was found to have hypernatremia and anemia, status post transfusion of 2 units of packed RBC on admission, and also started on IV fluids initially D5 normal saline, subsequently changed to D5W and serum sodium improved, and now changed to D5 half-normal saline with 10 mEq of KCl in each liter. The patient is more alert, awake, not in distress, tolerating p.o. intake. As per the patient's daughter at bedside, she was able to complete her break fast and 50% of her lunch today. The patient is not in acute distress. PHYSICAL EXAMINATION: VITAL SIGNS: As follows: Blood pressure 119/61, pulse 64, respirations 18, temperature 98, saturation 95%. Height 5 feet, weight is 100 pounds. GENERAL: Mrs. Wright is an 87-year-old elderly female, thin-built cachectic, not in distress. HEENT: Pupils normal, reactive to light and accommodation. Conjunctivae pink. Sclerae anicteric. Tongue is moist. Trachea is midline. LUNGS: Symmetric on both sides. Bilateral breath sounds present. Clear to auscultation. CVS: [place] at the fifth intercostal space, midclavicular line. S1 and S2 audible. No murmur or gallop. ABDOMEN: Normal in appearance. Soft, tympanitic. No guarding. No rigidity. No hepatosplenomegaly. CENTRAL NERVOUS SYSTEM: The patient is alert, awake and oriented x1. Sensory system is grossly within normal limits. Motor system, bilateral contracted both lower extremities and also dressing to the both legs. CURRENT MEDICATIONS: Include as follows: Aricept 10 mg p.o. at bedtime, Crestor 10 mg at bedtime, Ferrlecit 125 mg IV daily, folic acid 1 mg daily, subcu heparin 5000 units every 12 hours, Lexapro 5 mg p.o. at bedtime, Namenda 5 mg p.o. b.i.d., Pepcid 20 mg p.o. daily, Plavix 75 mg daily, IV fluids of D5 half-normal saline with 10 mEq KCl at 75 mL/hour, Silvadene cream, Topamax 25 mg p.o. b.i.d., vancomycin 1 g every 24 hours, zinc sulfate 220 mg p.o. daily and Zosyn 2.25 g IV every 8 hours. LABORATORY DATA: Include as follows: As of 09/04/2018, sodium 139, potassium 3.5, chloride 114, CO2 of 21, BUN 18, creatinine 1.5, glucose 143, calcium 7.5. ASSESSMENT AND PLAN: In summary, Mrs. Wright is an 87-year-old elderly female with history of hypertension, hyperlipidemia, arthritis, anemia, dementia, who was admitted with altered mental status from the baseline and anemia, status post transfusion. 1. Hypernatremia. Serum sodium improved back to normal. Continue gentle hydration. 2. Hypokalemia, potassium is on the lower limit of normal. Continue KCL with intravenous fluids and increase oral intake. 3. Anemia, secondary to renal failure, anemia of chronic kidney disease and iron deficiency. This may be a new baseline 1.4-1.5 for serum creatinine. We will follow with you. Thank you for allowing me to participate in your patient's care. Overall prognosis is guarded. Mark Islas MD
[2018-09-05] MEDS: Piperacill/Tazo 2.25gm in Dex 2.25 GM/50 ML BAG IVPB SCH ×3 (04:10→21:24)
[2018-09-05] MEDS: Silver Sulfadiazine 1% Cream (20 gm) TOP SCH (10:06)
[2018-09-05] MEDS: Potassium Chloride 20 mEq/15 ml LIQ UD PO SCH (10:06)
[2018-09-05] MEDS: Ferric Sodium Gluconat Complex 62.5 mg/5 ml Vial IVPB SCH (13:44)
--- NOTE | 2018-09-05 15:18 | CP.PCM.PN ---
Subjective - Date & Time of Evaluation Date of Evaluation: 09/05/18 Time of Evaluation: 15:18 - Subjective Subjective: pt is seen and examined, follow up consult is dictated #[id number] Objective - Vital Signs/Intake and Output Vital Signs (last 24 hours): Temp Pulse Resp BP Pulse Ox 98.1 F 108 H 20 110/56 L 94 L 09/05/18 00:00 09/05/18 00:00 09/05/18 00:00 09/05/18 00:00 09/05/18 00:00 Intake and Output: 09/05/18 09/05/18 06:59 18:59 Intake Total 700 Output Total 0 Balance 700 - Medications Medications: Current Medications Clopidogrel Bisulfate (Plavix) 75 mg PO DAILY [facility] Last Admin: 09/05/18 10:06 Dose: 75 mg Donepezil HCl (Aricept) 10 mg PO HS [facility] Last Admin: 09/04/18 21:22 Dose: 10 mg Escitalopram Oxalate (Lexapro) 5 mg PO HS [facility] Last Admin: 09/04/18 21:22 Dose: 5 mg Famotidine (Pepcid) 20 mg PO DAILY [facility] Last Admin: 09/05/18 10:06 Dose: 20 mg Ferric Sodium Gluconate Complex (Ferrlecit) 125 mg IVPB Q24H [facility] Stop: 09/08/18 14:31 Last Admin: 09/05/18 13:44 Dose: 125 mg Folic Acid (Folic Acid) 1 mg PO DAILY [facility] Last Admin: 09/05/18 10:06 Dose: 1 mg Heparin Sodium (Porcine) (Heparin) 5,000 units SC Q12 [facility] Last Admin: 09/05/18 10:06 Dose: 5,000 units Potassium Chloride 10 meq/ (Dextrose/Sodium Chloride) 1,005 mls @ 75 mls/hr IV .[id number] [facility] Last Admin: 09/05/18 15:03 Dose: 75 mls/hr Vancomycin/Sodium Chloride (Vancomycin 1 Gm/Ns 200 Ml) 1 gm in 200 mls @ 133 mls/hr IVPB Q24H [facility]; Protocol Stop: 09/07/18 20:01 Last Admin: 09/04/18 19:00 Dose: 133 mls/hr Piperacillin Sod/Tazobactam Sod (Zosyn 2.25 Gm Iv Premix) 2.25 gm in 50 mls @ 100 mls/hr IVPB Q8H [facility]; Protocol Last Admin: 09/05/18 12:04 Dose: 100 mls/hr Memantine (Namenda) 5 mg PO BID [facility] Last Admin: 09/05/18 10:06 Dose: 5 mg Potassium Chloride (Potassium Chloride Oral Soln) 20 meq PO DAILY [facility] Stop: 09/07/18 10:01 Last Admin: 09/05/18 10:06 Dose: 20 meq Rosuvastatin Calcium (Crestor) 10 mg PO HS [facility] Last Admin: 09/04/18 21:25 Dose: 10 mg Silver Sulfadiazine (Silvadene 1% 20 Gm) 0 ea TOP DAILY [facility] Last Admin: 09/05/18 10:06 Dose: 1 applic Topiramate (Topamax) 25 mg PO BID [facility] Last Admin: 09/05/18 10:07 Dose: 25 mg Zinc Sulfate (Zinc Sulfate 220 Mg Cap) 220 mg PO DAILY [facility] Last Admin: 09/05/18 10:06 Dose: 220 mg - Labs Labs: 09/03/18 06:33 09/04/18 06:36
--- NOTE | 2018-09-05 16:03 | CP.PCM.PN ---
Subjective - Date & Time of Evaluation Date of Evaluation: 09/05/18 Time of Evaluation: 08:00 - Subjective Subjective: leg wound is weeping afeb NAD Objective - Vital Signs/Intake and Output Vital Signs (last 24 hours): Temp Pulse Resp BP Pulse Ox 98.1 F 108 H 20 110/56 L 94 L 09/05/18 00:00 09/05/18 00:00 09/05/18 00:00 09/05/18 00:00 09/05/18 00:00 Intake and Output: 09/05/18 09/05/18 06:59 18:59 Intake Total 700 1000 Output Total 0 Balance 700 1000 - Medications Medications: Current Medications Clopidogrel Bisulfate (Plavix) 75 mg PO DAILY [facility] Last Admin: 09/05/18 10:06 Dose: 75 mg Donepezil HCl (Aricept) 10 mg PO HS [facility] Last Admin: 09/04/18 21:22 Dose: 10 mg Escitalopram Oxalate (Lexapro) 5 mg PO HS [facility] Last Admin: 09/04/18 21:22 Dose: 5 mg Famotidine (Pepcid) 20 mg PO DAILY [facility] Last Admin: 09/05/18 10:06 Dose: 20 mg Ferric Sodium Gluconate Complex (Ferrlecit) 125 mg IVPB Q24H [facility] Stop: 09/08/18 14:31 Last Admin: 09/05/18 13:44 Dose: 125 mg Folic Acid (Folic Acid) 1 mg PO DAILY [facility] Last Admin: 09/05/18 10:06 Dose: 1 mg Heparin Sodium (Porcine) (Heparin) 5,000 units SC Q12 [facility] Last Admin: 09/05/18 10:06 Dose: 5,000 units Potassium Chloride 10 meq/ (Dextrose/Sodium Chloride) 1,005 mls @ 75 mls/hr IV .[id number] [facility] Last Admin: 09/05/18 15:03 Dose: 75 mls/hr Vancomycin/Sodium Chloride (Vancomycin 1 Gm/Ns 200 Ml) 1 gm in 200 mls @ 133 mls/hr IVPB Q24H [facility]; Protocol Stop: 09/07/18 20:01 Last Admin: 09/04/18 19:00 Dose: 133 mls/hr Piperacillin Sod/Tazobactam Sod (Zosyn 2.25 Gm Iv Premix) 2.25 gm in 50 mls @ 100 mls/hr IVPB Q8H [facility]; Protocol Last Admin: 09/05/18 12:04 Dose: 100 mls/hr Memantine (Namenda) 5 mg PO BID [facility] Last Admin: 09/05/18 10:06 Dose: 5 mg Potassium Chloride (Potassium Chloride Oral Soln) 20 meq PO DAILY [facility] Stop: 09/07/18 10:01 Last Admin: 09/05/18 10:06 Dose: 20 meq Rosuvastatin Calcium (Crestor) 10 mg PO HS [facility] Last Admin: 09/04/18 21:25 Dose: 10 mg Silver Sulfadiazine (Silvadene 1% 20 Gm) 0 ea TOP DAILY [facility] Last Admin: 09/05/18 10:06 Dose: 1 applic Topiramate (Topamax) 25 mg PO BID [facility] Last Admin: 09/05/18 10:07 Dose: 25 mg Zinc Sulfate (Zinc Sulfate 220 Mg Cap) 220 mg PO DAILY [facility] Last Admin: 09/05/18 10:06 Dose: 220 mg - Labs Labs: 09/03/18 06:33 09/04/18 06:36 - Constitutional Appears: Non-toxic, Confused, Cachectic, Chronically Ill - Head Exam Head Exam: NORMOCEPHALIC - Eye Exam Eye Exam: absent: Scleral icterus - ENT Exam ENT Exam: Mucous Membranes Dry - Neck Exam Neck Exam: absent: Lymphadenopathy - Respiratory Exam Respiratory Exam: Decreased Breath Sounds, Prolonged Expiratory Phase, Rhonchi - Cardiovascular Exam Cardiovascular Exam: REGULAR RHYTHM, +S1, +S2 - GI/Abdominal Exam GI & Abdominal Exam: Distended, Soft. absent: Tenderness - Rectal Exam Rectal Exam: Deferred - Exam Exam: NORMAL INSPECTION - Extremities Exam Extremities Exam: Pedal Edema Additional comments: weeping wound- dressing saturated + Blood - Back Exam Back Exam: absent: CVA tenderness (L), CVA tenderness (R) - Neurological Exam Neurological Exam: Alert, Altered, Awake, CN II-XII Intact - Psychiatric Exam Psychiatric exam: Depressed - Skin Skin Exam: absent: Intact Additional comments: weeping wounds of LE Assessment and Plan (1) Dementia Status: Acute (2) Diabetes mellitus Status: Acute (3) Foot ulcer Status: Acute (4) HTN (hypertension) Status: Acute (5) Hypercholesterolemia Status: Acute (6) New onset a-fib Status: Acute (7) Renal insufficiency Status: Acute (8) Venous ulcer Status: Acute - Assessment and Plan (Free Text) Assessment: severe stasis ulcer/ cellulitis family refusing amputation Plan: wound + enterococcus/ proteus
[2018-09-05] MEDS: Vancomycin 1 gm/NS 200 ml 1 GM/200 ML BAG IVPB SCH (19:30)
--- NOTE | 2018-09-05 19:52 | PN ---
DATE: 09/05/2018 SUBJECTIVE: Today, the patient is awake, but is sleepy but easily arousable and does not respond to questions but keeps eye open upon verbal stimuli. No apparent distress. PHYSICAL EXAMINATION: VITAL SIGNS: Blood pressure is 110/56, pulse 108, respirations 20, temperature 98.1. NECK: Has stiffness which is worse. LUNGS: Poor inspiratory effort. HEART: Regular rate and rhythm and positive murmur, and some extra beat noted. ABDOMEN: Soft and positive bowel sounds. EXTREMITIES: There is contracture of the knees and some limitation of fracture . ASSESSMENT AND PLAN: The case was discussed with the family and daughter yesterday and the plan is to we are going to continue physical therapy and patient has to continue therapy as far as the infected wound and also Staphylococcus in the blood, and we will discuss the case with Infectious Disease. Jaquan Graf MD
--- NOTE | 2018-09-06 04:14 | PN ---
DATE: 09/05/2018 FOLLOWUP RENAL CONSULTATION LOCATION: The patient is located in room 351, bed A. REQUESTED BY: Jaquan Graf MD REASON FOR FOLLOWUP: Hypernatremia, acute renal failure on chronic kidney disease. SUBJECTIVE: Ms. Wright is an 88-year-old elderly female with a history of hypertension, hyperlipidemia, arthritis, dementia, chronic kidney disease, was admitted with the chief complaint of altered mental status from the baseline by daughter and found to have hypernatremia, anemia and renal failure requiring transfusion of 2 units of packed RBC on admission. The patient is not in acute distress, more alert, awake with increased p.o. intake. PHYSICAL EXAMINATION: VITAL SIGNS: Blood pressure 113/68, pulse 99, respirations 20, temperature 98.1, saturation 97%. Height 5 feet, weight is 100 pounds. GENERAL: Ms. Wright is an 88-year-old, very thin built, cachectic female, not in distress. HEENT: Pupils normal, reactive to light and accommodation. Conjunctivae pink. Sclerae anicteric. Tongue is moist. Trachea is midline. LUNGS: Symmetric on both sides. Bilateral breath sounds present. Clear to auscultation. CVS: [place] at the fifth intercostal space, midclavicular line. S1, S2 audible. No murmur or gallop. ABDOMEN: Normal in appearance, soft, tympanitic. No guarding. No rigidity. No hepatosplenomegaly. [employer]: The patient is awake, oriented x0-1. Cranial nerves II through XII grossly intact. Sensory system is within normal limits. Motor system, bilateral contracted both lower extremities. EXTREMITIES: Bilateral leg ulcers present. No cyanosis. No clubbing. No edema. MEDICATIONS: Current medications include as follows: Aricept 10 mg at bedtime, Crestor 10 mg at bedtime, ferric gluconate 125 mg IV daily, folic acid 1 mg daily, subcu heparin 5000 units every 12 hours, Lexapro 5 mg p.o. at bedtime, Namenda 5 mg at bedtime, Pepcid 20 mg p.o. daily, Plavix 75 mg daily, KCl 20 mEq p.o. daily, Topamax 25 mg p.o. b.i.d., vancomycin 1 g every 24 hours, zinc sulfate 220 mg p.o. daily, and Zosyn 2.25 g IV every 8 hours. LABORATORY DATA: No new labs are available for today and as of 09/04/2018, sodium is 139, potassium 3.5, chloride 114, CO2 of 21, BUN 18, creatinine 1.5, glucose 143, calcium 7.5. ASSESSMENT AND PLAN: In summary, Ms. Wright is an 88 years old elderly female with hypertension, dementia, arthritis, hyperlipidemia, chronic kidney disease, was admitted with decreased by mouth intake and decreased mental status from her baseline. 1. Status post hypernatremia. Serum sodium improved to 139 from 151. 2. Acute renal failure on chronic kidney disease. Renal function is improved, now with creatinine 1.4-1.5, this might be her baseline. 3. Anemia secondary to renal failure and iron-deficiency anemia. Continue Ferrlecit. We will add Nephrocaps 1 tablet by mouth daily. Continue to monitor electrolytes. Continue intravenous antibiotics for bilateral leg ulcers, vancomycin and Zosyn as per Infectious Disease recommendation. Thank you for allowing me to participate in your patient's care. Discussed with the patient's daughter at bedside. Mark Islas MD
[2018-09-06] MEDS: Piperacill/Tazo 2.25gm in Dex 2.25 GM/50 ML BAG IVPB SCH ×3 (04:15→20:09)
[2018-09-06 06:10] LABS: BASO % 0.3 % (0.0-2.0); EOS # 0.1 K/uL (0.0-0.7); EOS % 1.3 % (0.0-4.0); HEMOGLOBIN 8.5 g/dL (11.0-16.0); LYMPH # 1.7 K/uL (1.0-4.3); LYMPH % 23.9 % (20.0-40.0); MEAN CELL VOLUME 86.5 fL (81.0-99.0); MEAN CORPUSCULAR HEMOGLOBIN 27.5 pg (27.0-31.0); MEAN CORPUSCULAR HGB CONC 31.8 g/dL (33.0-37.0); MEAN PLATELET VOLUME 7.3 fL (7.2-11.7); MONO # 0.3 K/uL (0.0-0.8); MONO % 4.4 % (0.0-10.0); NEUT % 70.1 % (50.0-75.0); RBC 3.07 Mil/uL (3.80-5.20); RED CELL DISTRIBUTION WIDTH 19.5 % (11.5-14.5); WHITE BLOOD COUNT 7.2 K/uL (4.8-10.8)
[2018-09-06 06:22] LABS: ALB/GLOB RATIO 0.8 (1.0-2.1); ALBUMIN 2.2 g/dL (3.5-5.0); CALCIUM 7.7 mg/dl (8.6-10.4)
--- NOTE | 2018-09-06 08:10 | CP.PCM.PN ---
Subjective - Date & Time of Evaluation Date of Evaluation: 09/06/18 Time of Evaluation: 08:06 - Subjective Subjective: Podiatry Progress Note for Dr. Pierson 87 y/o female seen and evaluated at bedside for left leg necrotic wound and healed right heel wound. Patient suffers from dementia and is unable to effectively communicate. Patient slightly combative on visit. Per nursing, no acute overnight events. Per nursing, patient's daughter refusing vascular consultation. Objective - Vital Signs/Intake and Output Vital Signs (last 24 hours): Temp Pulse Resp BP Pulse Ox 97.5 F L 109 H 20 142/64 95 09/06/18 00:00 09/06/18 00:00 09/06/18 00:00 09/06/18 00:00 09/06/18 00:00 Intake and Output: 09/06/18 09/06/18 06:59 18:59 Intake Total 1400 Output Total 0 Balance 1400 - Medications Medications: Current Medications Clopidogrel Bisulfate (Plavix) 75 mg PO DAILY [facility] Last Admin: 09/05/18 10:06 Dose: 75 mg Donepezil HCl (Aricept) 10 mg PO HS [facility] Last Admin: 09/05/18 21:24 Dose: 10 mg Escitalopram Oxalate (Lexapro) 5 mg PO [facility] Last Admin: 09/05/18 21:24 Dose: 5 mg Famotidine (Pepcid) 20 mg PO DAILY [facility] Last Admin: 09/05/18 10:06 Dose: 20 mg Ferric Sodium Gluconate Complex (Ferrlecit) 125 mg IVPB Q24H [facility] Stop: 09/08/18 14:31 Last Admin: 09/05/18 13:44 Dose: 125 mg Folic Acid (Folic Acid) 1 mg PO DAILY [facility] Last Admin: 09/05/18 10:06 Dose: 1 mg Heparin Sodium (Porcine) (Heparin) 5,000 units SC Q12 [facility] Last Admin: 09/05/18 21:23 Dose: 5,000 units Vancomycin/Sodium Chloride (Vancomycin 1 Gm/Ns 200 Ml) 1 gm in 200 mls @ 133 mls/hr IVPB Q24H [facility]; Protocol Stop: 09/07/18 20:01 Last Admin: 09/05/18 19:30 Dose: 133 mls/hr Piperacillin Sod/Tazobactam Sod (Zosyn 2.25 Gm Iv Premix) 2.25 gm in 50 mls @ 100 mls/hr IVPB Q8H [facility]; Protocol Last Admin: 09/06/18 04:15 Dose: 100 mls/hr Memantine (Namenda) 5 mg PO BID [facility] Last Admin: 09/05/18 17:29 Dose: 5 mg Potassium Chloride (Potassium Chloride Oral Soln) 20 meq PO DAILY [facility] Stop: 09/07/18 10:01 Last Admin: 09/05/18 10:06 Dose: 20 meq Rosuvastatin Calcium (Crestor) 10 mg PO HS [facility] Last Admin: 09/05/18 22:35 Dose: 10 mg Silver Sulfadiazine (Silvadene 1% 20 Gm) 0 ea TOP DAILY [facility] Last Admin: 09/05/18 10:06 Dose: 1 applic Topiramate (Topamax) 25 mg PO BID [facility] Last Admin: 09/05/18 17:29 Dose: 25 mg Zinc Sulfate (Zinc Sulfate 220 Mg Cap) 220 mg PO DAILY [facility] Last Admin: 09/05/18 10:06 Dose: 220 mg - Labs Labs: 09/06/18 06:05 09/06/18 06:05 - Constitutional Appears: Well, Non-toxic, No Acute Distress - Extremities Exam Additional comments: LE focused exam: Vasc: DP/PT pulses fully palpable 2/4 B/L. Skin temperature warm to warm from proximal to distal. CFT < 3 seconds to all digits. No edema noted B/L Neuro: Unable to assess due to patient's mental status Derm: Left leg circumferential venous stasis ulceration measuring approximately 15 cm in length and 0.1 cm in depth seen on patient's thompson. Wound base is fibrogranular mix with thick, brown drainage noted. Minimal malodor noted. No periwound erythema, tracking, tunneling, undermining or other clinical signs of infection noted. MSK: Unable to assess due to patient's mental status - Neurological Exam Neurological Exam: Alert, Awake - Psychiatric Exam Psychiatric exam: Normal Affect, Normal Mood Assessment and Plan - Assessment and Plan (Free Text) Assessment: 87 y/o female with left leg necrotic wound and healed right heel wound Plan: Patient seen and evaluated with Dr. Kenna KILGORE; no leukocytosis Continue IV abx per ID Wound cx left leg shows growth of Proteus, Enterococcus Foot xray: Osteopenia, no acute osseous findings Tib/fib xray: No acute findings Continue multipodus boots at all times while in bed Wound dressed with Xeroform, ABD, DSD Patient's family refuses vascular consult No plan for surgical intervention at this time Podiatry will continue to provide dressing changes while in house - Stable
[2018-09-06] MEDS: Silver Sulfadiazine 1% Cream (20 gm) TOP SCH (09:17)
[2018-09-06] MEDS: Potassium Chloride 20 mEq/15 ml LIQ UD PO SCH (09:20)
--- NOTE | 2018-09-06 12:08 | CP.PCM.PN ---
Subjective - Date & Time of Evaluation Date of Evaluation: 09/06/18 Time of Evaluation: 08:00 - Subjective Subjective: left leg necrotic wound not likely to heal without surgery family refusing this to cont iv rx for now Objective - Vital Signs/Intake and Output Vital Signs (last 24 hours): Temp Pulse Resp BP Pulse Ox 97.9 F 102 H 20 91/54 L 99 09/06/18 08:00 09/06/18 08:00 09/06/18 08:00 09/06/18 08:00 09/06/18 08:00 Intake and Output: 09/06/18 09/06/18 06:59 18:59 Intake Total 1400 Output Total 0 Balance 1400 - Medications Medications: Current Medications Clopidogrel Bisulfate (Plavix) 75 mg PO DAILY [facility] Last Admin: 09/06/18 09:15 Dose: 75 mg Donepezil HCl (Aricept) 10 mg PO HS [facility] Last Admin: 09/05/18 21:24 Dose: 10 mg Escitalopram Oxalate (Lexapro) 5 mg PO [facility] Last Admin: 09/05/18 21:24 Dose: 5 mg Famotidine (Pepcid) 20 mg PO DAILY [facility] Last Admin: 09/06/18 09:16 Dose: 20 mg Ferric Sodium Gluconate Complex (Ferrlecit) 125 mg IVPB Q24H [facility] Stop: 09/08/18 14:31 Last Admin: 09/05/18 13:44 Dose: 125 mg Folic Acid (Folic Acid) 1 mg PO DAILY [facility] Last Admin: 09/06/18 09:16 Dose: 1 mg Vancomycin/Sodium Chloride (Vancomycin 1 Gm/Ns 200 Ml) 1 gm in 200 mls @ 133 mls/hr IVPB Q24H [facility]; Protocol Stop: 09/07/18 20:01 Last Admin: 09/05/18 19:30 Dose: 133 mls/hr Piperacillin Sod/Tazobactam Sod (Zosyn 2.25 Gm Iv Premix) 2.25 gm in 50 mls @ 100 mls/hr IVPB Q8H [facility]; Protocol Last Admin: 09/06/18 04:15 Dose: 100 mls/hr Memantine (Namenda) 5 mg PO BID [facility] Last Admin: 09/06/18 09:16 Dose: 5 mg Potassium Chloride (Potassium Chloride Oral Soln) 20 meq PO DAILY [facility] Stop: 09/07/18 10:01 Last Admin: 09/06/18 09:20 Dose: 20 meq Rosuvastatin Calcium (Crestor) 10 mg PO HS [facility] Last Admin: 09/05/18 22:35 Dose: 10 mg Silver Sulfadiazine (Silvadene 1% 20 Gm) 0 ea TOP DAILY [facility] Last Admin: 09/06/18 09:17 Dose: 1 applic Topiramate (Topamax) 25 mg PO BID [facility] Last Admin: 09/06/18 09:16 Dose: 25 mg Zinc Sulfate (Zinc Sulfate 220 Mg Cap) 220 mg PO DAILY [facility] Last Admin: 09/06/18 09:16 Dose: 220 mg - Labs Labs: 09/06/18 06:05 09/06/18 06:05 - Constitutional Appears: Confused, Cachectic, Chronically Ill - Head Exam Head Exam: NORMOCEPHALIC - Eye Exam Eye Exam: absent: Scleral icterus - ENT Exam ENT Exam: Mucous Membranes Dry - Neck Exam Neck Exam: absent: Lymphadenopathy - Respiratory Exam Respiratory Exam: Decreased Breath Sounds - Cardiovascular Exam Cardiovascular Exam: REGULAR RHYTHM - GI/Abdominal Exam GI & Abdominal Exam: Distended, Soft - Rectal Exam Rectal Exam: Deferred - Exam Exam: NORMAL INSPECTION Assessment and Plan (1) Dementia Status: Acute (2) Diabetes mellitus Status: Acute (3) Foot ulcer Status: Acute (4) HTN (hypertension) Status: Acute (5) Hypercholesterolemia Status: Acute (6) New onset a-fib Status: Acute (7) Renal insufficiency Status: Acute (8) Venous ulcer Status: Acute - Assessment and Plan (Free Text) Assessment: orders signed
[2018-09-06] MEDS: Ferric Sodium Gluconat Complex 62.5 mg/5 ml Vial IVPB SCH (14:00)
--- NOTE | 2018-09-06 16:07 | CP.PCM.PCO ---
Physician Communication Note - Physician Communication Note Physician Communication Note: pt can be discharged home with ampicillin x 21 days
--- NOTE | 2018-09-06 18:20 | CP.PCM.PN ---
Subjective - Date & Time of Evaluation Date of Evaluation: 09/06/18 Time of Evaluation: 18:20 - Subjective Subjective: pt is seen and examined, follow up consult is dictated #[id number] Objective - Vital Signs/Intake and Output Vital Signs (last 24 hours): Temp Pulse Resp BP Pulse Ox 97.1 F L 68 20 113/66 99 09/06/18 16:00 09/06/18 16:00 09/06/18 16:00 09/06/18 16:00 09/06/18 16:00 Intake and Output: 09/06/18 09/06/18 06:59 18:59 Intake Total 1400 1000 Output Total 0 Balance 1400 1000 - Medications Medications: Current Medications Clopidogrel Bisulfate (Plavix) 75 mg PO DAILY [facility] Last Admin: 09/06/18 09:15 Dose: 75 mg Donepezil HCl (Aricept) 10 mg PO HS [facility] Last Admin: 09/05/18 21:24 Dose: 10 mg Escitalopram Oxalate (Lexapro) 5 mg PO HS [facility] Last Admin: 09/05/18 21:24 Dose: 5 mg Famotidine (Pepcid) 20 mg PO DAILY [facility] Last Admin: 09/06/18 09:16 Dose: 20 mg Ferric Sodium Gluconate Complex (Ferrlecit) 125 mg IVPB Q24H [facility] Stop: 09/08/18 14:31 Last Admin: 09/06/18 14:00 Dose: 125 mg Folic Acid (Folic Acid) 1 mg PO DAILY [facility] Last Admin: 09/06/18 09:16 Dose: 1 mg Vancomycin/Sodium Chloride (Vancomycin 1 Gm/Ns 200 Ml) 1 gm in 200 mls @ 133 mls/hr IVPB Q24H [facility]; Protocol Stop: 09/07/18 20:01 Last Admin: 09/05/18 19:30 Dose: 133 mls/hr Piperacillin Sod/Tazobactam Sod (Zosyn 2.25 Gm Iv Premix) 2.25 gm in 50 mls @ 100 mls/hr IVPB Q8H [facility]; Protocol Last Admin: 09/06/18 13:59 Dose: 100 mls/hr Memantine (Namenda) 5 mg PO BID [facility] Last Admin: 09/06/18 18:00 Dose: 5 mg Potassium Chloride (Potassium Chloride Oral Soln) 20 meq PO DAILY [facility] Stop: 09/07/18 10:01 Last Admin: 09/06/18 09:20 Dose: 20 meq Rosuvastatin Calcium (Crestor) 10 mg PO HS [facility] Last Admin: 09/05/18 22:35 Dose: 10 mg Silver Sulfadiazine (Silvadene 1% 20 Gm) 0 ea TOP DAILY [facility] Last Admin: 09/06/18 09:17 Dose: 1 applic Topiramate (Topamax) 25 mg PO BID [facility] Last Admin: 09/06/18 18:00 Dose: 25 mg Zinc Sulfate (Zinc Sulfate 220 Mg Cap) 220 mg PO DAILY [facility] Last Admin: 09/06/18 09:16 Dose: 220 mg - Labs Labs: 09/06/18 06:05 09/06/18 06:05
[2018-09-06] MEDS: Vancomycin 1 gm/NS 200 ml 1 GM/200 ML BAG IVPB SCH (21:48)
--- NOTE | 2018-09-07 03:22 | PN ---
DATE: 09/06/2018 SUBJECTIVE: Today the patient is somewhat sleepy, seen this morning, but easily arousable which is her current state of health and the patient is no apparent distress. Does not respond to questions. PHYSICAL EXAMINATION: VITAL SIGNS: Blood pressure is 113/66, pulse 68, respirations 20, and temperature 97.1. NECK: There is stiffness which is worse. LUNGS: Clear but very poor respiratory effort. HEART: Regular rate and rhythm. Positive murmur. ABDOMEN: Soft. Positive bowel sounds. EXTREMITIES: Contracture disease and also chronic ulcer to the left leg. As we know, the blood has shown Staph aureus coagulase-negative. PLAN: The case was discussed with Dr. Reyes, Infectious Disease who had suggested that we give the patient on ampicillin p.o. for 21 days. So, the case was discussed with Umu Medeiros, the nurse practitioner. We are going to contact the family for possible discharge in the morning. Jaquan Graf MD
--- NOTE | 2018-09-07 04:00 | PN ---
DATE: 09/06/2018 FOLLOWUP RENAL CONSULTATION LOCATION: The patient is located in room 351, bed A. REQUESTED BY: Jaquan Graf MD SUBJECTIVE: Mrs. Wright is an 87-year-old elderly, very thin-built, cachectic female with a history of hypertension, dementia, arthritis, hyperlipidemia, bedridden, was admitted with altered mental status from the baseline and found to have anemia, hypernatremia and renal failure, status post transfusion of two units of packed RBC on admission. The patient is not in acute distress. The patient is back to her baseline as per the patient's daughter at bedside. The patient is tolerating her p.o. intake. PHYSICAL EXAMINATION: VITAL SIGNS: As follows: Blood pressure 113/66, pulse 68, respirations 20, temperature 97.1, saturation 99%. Height 5 feet. Weight is 100 pounds. GENERAL: Mrs. Wright is an 87-year-old elderly female, moderately thin built, cachectic, not in distress. HEENT: Pupils are normal and reactive to light and accommodation. [place] conjunctivae. Pinkish sclerae, anicteric. Trachea is midline. LUNGS: Symmetric on both sides. Bilateral breath sounds present. Clear to auscultation. CARDIOVASCULAR SYSTEM: [place] at the fifth intercostal space, midclavicular line. S1 and S2 audible. No murmur. No gallop. ABDOMEN: Normal in appearance. Soft, tympanitic. No guarding. No rigidity. No hepatosplenomegaly. CENTRAL NERVOUS SYSTEM: The patient is alert, awake and oriented x0 to 1. Sensory system is within normal limits. Motor system, bilateral contracted both lower extremities. EXTREMITIES: Bilateral lower extremity ulcers present. No cyanosis, no clubbing, no edema. CURRENT MEDICATIONS: Include as follows: Aricept 10 mg p.o. at bedtime, Crestor 10 mg at bedtime, ferrous gluconate 125 mg IV daily, folic acid 1 mg p.o. daily, Lexapro 5 mg p.o. at bedtime, Namenda 5 mg p.o. b.i.d., Pepcid 20 mg p.o. daily, Plavix 75 mg daily, potassium chloride 20 mEq p.o. daily, Topamax 25 mg p.o. b.i.d., zinc sulfate 220 mg p.o. daily, Zosyn 2.25 g IV every 8 hours, vancomycin 1 g every 48 hours. LABORATORY DATA: Include as follows: As of 09/06/2018: WBC 7.2, hemoglobin 8.5, hematocrit is 26.6, platelets 210. Sodium 139, potassium 3.6, chloride 112, CO2 of 21, BUN 13, creatinine 1.3, glucose 135, calcium is 7.7, phosphorus 2.8, and magnesium 1.6. Total bili 0.5, AST 25, ALT 22, alkaline phosphatase 89, total protein 5.1, albumin is 2.2. Vancomycin trough level is 21.2. ASSESSMENT AND PLAN: In summary, Mrs. Wright is an 87-year-old elderly female, thin built, cachectic with hypertension, hyperlipidemia, arthritis, dementia, bedridden with bilateral contracted both lower extremities and ulcers who was admitted with decreased oral intake, altered mental status from the baseline, hypernatremia, renal failure and anemia. 1. Status post hypernatremia. The serum sodium improved back to her baseline. 2. Anemia, secondary to multifactorial renal failure and iron-deficiency anemia. 3. Acute renal failure on chronic kidney disease. 4. Bilateral leg ulcers. Continue intravenous antibiotics of vancomycin and Zosyn as per Infection Disease recommendations. Agree with potassium supplement. Continue to monitor electrolytes. Renal function is improved, almost back to her baseline. This might be her new baseline. Thank you for allowing me to participate in your patient's care. Mark Islas MD
[2018-09-07] MEDS: Piperacill/Tazo 2.25gm in Dex 2.25 GM/50 ML BAG IVPB SCH ×2 (04:02→12:50)
[2018-09-07 07:22] LABS: BASO % 0.3 % (0.0-2.0); CALCIUM 7.8 mg/dl (8.6-10.4); EOS # 0.1 K/uL (0.0-0.7); EOS % 0.9 % (0.0-4.0); HEMOGLOBIN 8.1 g/dL (11.0-16.0); LYMPH # 1.8 K/uL (1.0-4.3); MEAN CELL VOLUME 85.5 fL (81.0-99.0); MEAN CORPUSCULAR HEMOGLOBIN 27.1 pg (27.0-31.0); MEAN CORPUSCULAR HGB CONC 31.8 g/dL (33.0-37.0); MEAN PLATELET VOLUME 7.5 fL (7.2-11.7); MONO # 0.3 K/uL (0.0-0.8); MONO % 3.9 % (0.0-10.0); NEUT % 69.9 % (50.0-75.0); RBC 2.97 Mil/uL (3.80-5.20); RED CELL DISTRIBUTION WIDTH 19.6 % (11.5-14.5); WHITE BLOOD COUNT 7.1 K/uL (4.8-10.8)
[2018-09-07 07:59] VITALS: BP 146/98; PULSE 74; TEMP 98.3; O2SAT 98
[2018-09-07] MEDS: Silver Sulfadiazine 1% Cream (20 gm) TOP SCH (10:12)
[2018-09-07] MEDS: Potassium Chloride 20 mEq/15 ml LIQ UD PO SCH (10:15)
--- NOTE | 2018-09-07 11:20 | CP.PCM.PN ---
Subjective - Date & Time of Evaluation Date of Evaluation: 09/07/18 Time of Evaluation: 08:00 - Subjective Subjective: large left leg weeping infected ulcer refusing surgery Objective - Vital Signs/Intake and Output Vital Signs (last 24 hours): Temp Pulse Resp BP Pulse Ox 98.3 F 74 20 146/98 H 98 09/07/18 07:58 09/07/18 07:58 09/07/18 07:58 09/07/18 07:58 09/07/18 07:58 Intake and Output: 09/07/18 09/07/18 06:59 18:59 Intake Total 900 Balance 900 - Medications Medications: Current Medications Clopidogrel Bisulfate (Plavix) 75 mg PO DAILY [facility] Last Admin: 09/07/18 10:12 Dose: 75 mg Donepezil HCl (Aricept) 10 mg PO [facility] Last Admin: 09/06/18 21:09 Dose: 10 mg Escitalopram Oxalate (Lexapro) 5 mg PO [facility] Last Admin: 09/06/18 21:09 Dose: 5 mg Famotidine (Pepcid) 20 mg PO DAILY [facility] Last Admin: 09/07/18 10:12 Dose: 20 mg Ferric Sodium Gluconate Complex (Ferrlecit) 125 mg IVPB Q24H [facility] Stop: 09/08/18 14:31 Last Admin: 09/06/18 14:00 Dose: 125 mg Folic Acid (Folic Acid) 1 mg PO DAILY [facility] Last Admin: 09/07/18 10:12 Dose: 1 mg Piperacillin Sod/Tazobactam Sod (Zosyn 2.25 Gm Iv Premix) 2.25 gm in 50 mls @ 100 mls/hr IVPB Q8H [facility]; Protocol Last Admin: 09/07/18 04:02 Dose: 100 mls/hr Vancomycin HCl 1 gm/ Sodium (Chloride) 250 mls @ 166.7 mls/hr IVPB Q48H [facility]; Protocol Potassium Chloride (Potassium Chloride 20 Meq/100 Ml) 20 meq in 100 mls @ 50 mls/hr IVPB ONCE ONE Stop: 09/07/18 11:59 Last Admin: 09/07/18 10:11 Dose: 50 mls/hr Memantine (Namenda) 5 mg PO BID [facility] Last Admin: 09/07/18 10:12 Dose: 5 mg Rosuvastatin Calcium (Crestor) 10 mg PO [facility] Last Admin: 09/06/18 21:08 Dose: 10 mg Silver Sulfadiazine (Silvadene 1% 20 Gm) 0 ea TOP DAILY [facility] Last Admin: 09/07/18 10:12 Dose: Not Given Topiramate (Topamax) 25 mg PO BID [facility] Last Admin: 09/07/18 10:12 Dose: 25 mg Zinc Sulfate (Zinc Sulfate 220 Mg Cap) 220 mg PO DAILY [facility] Last Admin: 09/07/18 10:12 Dose: 220 mg - Labs Labs: 09/07/18 07:03 09/07/18 07:03 - Constitutional Appears: Non-toxic, Cachectic, Chronically Ill - Head Exam Head Exam: NORMOCEPHALIC - Eye Exam Eye Exam: absent: Scleral icterus - ENT Exam ENT Exam: Mucous Membranes Dry - Neck Exam Neck Exam: absent: Lymphadenopathy - Respiratory Exam Respiratory Exam: Decreased Breath Sounds - Cardiovascular Exam Cardiovascular Exam: REGULAR RHYTHM - GI/Abdominal Exam GI & Abdominal Exam: Distended, Soft - Rectal Exam Rectal Exam: Deferred - Exam Exam: NORMAL INSPECTION - Extremities Exam Extremities Exam: Pedal Edema - Back Exam Back Exam: absent: CVA tenderness (L), CVA tenderness (R) - Neurological Exam Neurological Exam: Altered Assessment and Plan (1) Dementia Status: Acute (2) Diabetes mellitus Status: Acute (3) Foot ulcer Status: Acute (4) HTN (hypertension) Status: Acute (5) Hypercholesterolemia Status: Acute (6) New onset a-fib Status: Acute (7) Renal insufficiency Status: Acute (8) Venous ulcer Status: Acute - Assessment and Plan (Free Text) Assessment: d/c on po rx with wound care in home poor prognosis for limb salvage
--- NOTE | 2018-09-07 16:57 | CP.PCM.PN ---
Subjective - Date & Time of Evaluation Date of Evaluation: 09/07/18 Time of Evaluation: 11:00 - Subjective Subjective: awake, responsive, no acute distress. Objective - Vital Signs/Intake and Output Vital Signs (last 24 hours): Temp Pulse Resp BP Pulse Ox 98.3 F 74 20 146/98 H 98 09/07/18 07:58 09/07/18 07:58 09/07/18 07:58 09/07/18 07:58 09/07/18 07:58 Intake and Output: 09/07/18 09/07/18 06:59 18:59 Intake Total 900 Balance 900 - Labs Labs: 09/07/18 07:03 09/07/18 07:03 Assessment and Plan - Assessment and Plan (Free Text) Assessment: 88 year old female admitted with dehydration, cellulitis, awake, responsive, needs total care. Able to eat pureed diet. Discussed with DR Graf and DR Reyes, plan to discharge home on po ampicillin and cipro for 21 days for wheeping wound on the foot. Home care and [facility] arranged for wound care. Advised to follow up with PMD in 1 week and as needed.
--- NOTE | 2018-09-07 22:22 | PN ---
DATE: 09/07/2018 SUBJECTIVE: Today, the patient was seen and evaluated this morning. The patient was somewhat sleepy but easily arousable and otherwise mostly screaming when the patient was up. However, the patient was mumbling words but did not give any clear talk, which is her usual state of health. PHYSICAL EXAMINATION: VITAL SIGNS: The patient has a blood pressure of 117/69, pulse is 108, respiration is 20, temperature 97.9. The next blood pressure was 142/98, pulse 74, respiration 20, temperature 98.3. NECK: There is mild stiffness. LUNGS: Clear. HEART: Regular rate and rhythm. Positive extra systole and positive murmur. ABDOMEN: Soft. EXTREMITIES: There is some conjuncture of the knee. The patient has a surgery in the left leg. LABORATORY DATA: The patient had a blood work done that showed WBC 7.1, hemoglobin 8.1, hematocrit 25.4 and platelets 231. Chemistry showed sodium 139, potassium 3.3, chloride 114, BUN 13, creatinine 1.3, glucose 118, calcium 7.8. ASSESSMENT AND PLAN: At this point, Vascular Surgery has recommended amputation, but the family has refused. Infectious Disease had recommended to give the patient ampicillin and Cipro since the patient had a Staphylococcus aureus and coagulase negative in the blood. We will consider deciding the patient after requesting of that. Potassium was given. The case also was discussed with Adela Yap, the nurse practitioner. Jaquan Graf MD
--- NOTE | 2018-09-08 06:12 | DS ---
This is an 87-year-old female with history of Alzheimer's dementia, anemia, hypertension, hyperlipidemia, and arthritis. The patient was brought into the emergency room because the patient was found to be confused. The confusion was increasing. The patient was seen in the emergency room and was found to be dehydrated. The patient has also an elevated sodium, and also the patient was found to be anemic. Sodium was 158. At this point, the patient was admitted. Has received consult with Dr. Islas who is of Renal and also Eric Mccormick of ID. The patient's wound culture was done. They have shown Proteus mirabilis and Enterococcus faecalis, and also the blood culture was with Staphylococcus, coagulase negative. So, the patient was put on antibiotic therapy. Surgical consult and vascular consult were done since the patient has a chronic ulcer of the left leg. Recommendation was made to have an amputation, but however, the family did not have insurance in surgical intervention. At this point, the patient was receiving ampicillin. Recommendation was done by ID while the patient to receive ampicillin and Cipro upon discharge since the patient skilled nursing for acute rehab, so are going to discharge this patient home. Jaquan Graf MD
--- NOTE | 2018-09-17 12:25 | PQF ---
PROVIDER RESPONSE TEXT: Sepsis ruled IN REVIEWER QUERY TEXT: Rule Out Sepsis Clarification Rule out Sepsis is documented in the Medical Record. Please clarify whether: -- Patient has sepsis - Please document confirmed, suspected or probable causative organism - Please document confirmed, suspected or probable localized infection - Please clarify if sepsis is related to a device - Please clarify if sepsis was present on admission -- Sepsis was ruled out (include corresponding diagnosis for patient?s clinical picture and treatment ) -- Patient had sepsis which is resolved -- Other, please specify The patient's Clinical Indicators include: 08/29 BLOOD CULTURE POSITIVE FOR SATAPH AUREUS PLEASE CLARIFY AND DOCUMENT IF "SEPSIS" WAS R/I OR R/O Query created by: Beatris Jung on 09/09/2018 4:32 PM Electronically signed by: Jaquan Graf MD 09/17/2018 12:21 PM
== END 2018-09-07 13:36 | DRG 872 ==
LOC: C.ER 14:46 → C.9E 18:46 → C.3T 08-30 17:38
PROVIDERS: ADMIT Specialist; ATTEND Specialist
DX: A41.9 Sepsis, unspecified organism (principal); R64 Cachexia; Z68.1 Body mass index [BMI] 19.9 or less, adult; L03.116 Cellulitis of left lower limb; I13.0 Hypertensive heart and chronic kidney disease with heart failure and stage 1 through stage 4 chronic kidney disease, or unspecified chronic kidney disease; N17.9 Acute kidney failure, unspecified; E87.0 Hyperosmolality and hypernatremia; E86.0 Dehydration; E78.5 Hyperlipidemia, unspecified; G30.9 Alzheimer's disease, unspecified; F02.80 Dementia in other diseases classified elsewhere, unspecified severity, without behavioral disturbance, psychotic disturbance, mood disturbance, and anxiety; I48.91 Unspecified atrial fibrillation; L97.529 Non-pressure chronic ulcer of other part of left foot with unspecified severity; M06.9 Rheumatoid arthritis, unspecified; Z87.891 Personal history of nicotine dependence; E11.22 Type 2 diabetes mellitus with diabetic chronic kidney disease; E11.621 Type 2 diabetes mellitus with foot ulcer; D63.1 Anemia in chronic kidney disease; D50.9 Iron deficiency anemia, unspecified; E87.6 Hypokalemia; M17.0 Bilateral primary osteoarthritis of knee; N18.9 Chronic kidney disease, unspecified; I50.9 Heart failure, unspecified; B96.4 Proteus (mirabilis) (morganii) as the cause of diseases classified elsewhere; B95.2 Enterococcus as the cause of diseases classified elsewhere

== ENCOUNTER 2018-09-09 15:36 | Inpatient (IN) | payer MEDICARE, MEDICAID ==
--- NOTE | 2018-09-09 16:11 | C.PDOC ---
History Of Present Illness 88 year old female referred by Dr. Pierson (primer powder blender wet) for evaluation of left lower leg. She was a recent inpatient for an extensive wound on left lower leg. Patient was taking Zosyn and Vancomycin for healing with poor improvement. Unclear why patient was discharged home. She was referred by Dr. Pierson for surgery for AKA/BKA. Patient denies any fever. Time Seen by Provider: 09/09/18 16:04 Chief Complaint (Nursing): Lower Extremity Problem/Injury History Per: Patient History/Exam Limitations: no limitations Onset/Duration Of Symptoms: Hrs Current Symptoms Are (Timing): Still Present Past Medical History Reviewed: Historical Data, Nursing Documentation, Vital Signs - Medical History PMH: Alzheimer's Disease, Anemia, Arthritis (KNEE L>R; B/L ANKLE), Dementia, HTN, Hypercholesterolemia, Rheumatoid Arthritis (B/L LE) Denies: Deep Vein Thrombosis, Chronic Kidney Disease Surgical History: Denies: Pacemaker - [facility] Procedures ATRIAL CARDIOVERSION (04/12/15) CENTRAL VENOUS CATHETER PLACEMENT WITH GUIDANCE (09/25/14) INSERTION OF INFUSION DEV INTO SUP VENA CAVA, PERC APPROACH (06/11/16) Family History: States: Unknown Family Hx - Social History Hx Tobacco Use: No Hx Alcohol Use: No Hx Substance Use: No - Immunization History Hx Tetanus Toxoid Vaccination: No Hx Influenza Vaccination: No Hx Pneumococcal Vaccination: No Review Of Systems Constitutional: Negative for: Fever, Chills, Weakness Cardiovascular: Negative for: Chest Pain, Palpitations Respiratory: Negative for: Shortness of Breath Musculoskeletal: Positive for: Leg Pain (extensive wound on left lower leg) Neurological: Negative for: Weakness, Numbness, Dizziness Physical Exam - Physical Exam Appears: Well, Non-toxic, No Acute Distress Skin: Normal Color, Warm, Dry Head: Atraumatic, Normacephalic Chest: Symmetrical, No Deformity Cardiovascular: Rhythm Regular Respiratory: No Accessory Muscle Use, No Rales, No Rhonchi, No Wheezing Gastrointestinal/Abdominal: Soft, No Tenderness Extremity: Other (AV fistula in the right arm, ulcers in lower left leg and entire foot, foul smell) Neurological/Psych: Oriented x3, Normal Speech, Normal Cognition ED Course And Treatment - Laboratory Results Result Diagrams: 09/09/18 17:09 09/09/18 17:09 Lab Interpretation: Abnormal (trop 0.286H) ECG: Interpreted By Me, Viewed By Me ECG Rhythm: Sinus Rhythm ECG Interpretation: Normal Rate From EC - Radiology CXR: Interpreted by Me CXR Interpretation: Yes: No Acute Disease, Other (chronic elev L HD) Progress Note: Labs ordered with type and cross and UA. Vancomycin IVPB and Zosyn IV given to patient. EKG, Chest one view, Foot left 3 views ordered for patient. Left foot X-ray showed multiple deformities, osteopenia, and no subcutaneous gas. Reevaluation Time: 17:41 Reassessment Condition: Unchanged - Physician Consult Information Outcome Of Conversation: 1610: d/w Podiatry Kalpesh- aware of pt from prior and per Dr. Pierson's update, will eval. Planning BKA vs AKA tomorrow. 161: d/w Dr. Graf- PMD- ok to admit. 161: d/w Surg Kalpesh- for Dr. Pardo- will eval Medical Decision Making Medical Decision Making: NSTEMI, trop 0.286 H chronic L Lower leg wounds, pending L BKA/AKA in AM Disposition Doctor Will See Patient In The: Hospital Counseled Patient/Family Regarding: Studies Performed, Diagnosis - Disposition Disposition: HOSPITALIZED Disposition Time: 17:42 Condition: FAIR - Clinical Impression Clinical Impression: NSTEMI (non-ST elevated myocardial infarction), Wound of left lower extremity - Scribe Statement The provider has reviewed the documentation as recorded by the Scribe (Evy Erazo) All medical record entries made by the Scribe were at my direction and personal ly dictated by me. I have reviewed the chart and agree that the record accurately reflects my personal performance of the history, physical exam, medical decision making, and the department course for this patient. I have also personally directed, reviewed, and agree with the discharge instructions and disposition.
[2018-09-09] MEDS ORDERED: Vancomycin 1 GM 1 GM/250 ML BAG IVPB STA (16:12)
[2018-09-09] MEDS ORDERED: Piperacillin/Tazobact 2.25 gm Inj IV STA (16:13)
--- NOTE | 2018-09-09 16:59 | RAD ---
Date of service: 09/09/2018 PROCEDURE: Left Foot Radiographs. HISTORY: wound COMPARISON: Left foot radiographs 06/11/2016. FINDINGS: BONES: Gross osteopenia suggests advanced osteoporosis. Identification nondisplaced fractures is compromised. No gross displaced fracture appreciated. Operative changes versus chronic healed fracture deformity of the distal 1st metatarsal bone is identified with gross hammertoe deformities identified throughout the digits of the left foot once again. Plantar flexion deformity of the right ankle is reiterated. Soft tissue detail is obscured by bandaging or sock material. Soft tissue loss is suggested at the tip of the great toe. JOINTS: No subluxation or dislocation evident. SOFT TISSUES: Diffuse soft tissue edema is suggested in the interval without emphysematous change or retained radiodense foreign body identified. OTHER FINDINGS: None. IMPRESSION: No definitive acute fracture, subluxation or dislocation. Diffuse osteopenia suggests advanced osteoporosis with postop change versus fracture deformity distal 1st metatarsal bone once again evident. Interval diffuse soft tissue edema is suggested throughout the left foot. Soft tissue loss suggested at the tip of the great toe.
--- NOTE | 2018-09-09 17:00 | RAD ---
Date of service: 09/09/2018 HISTORY: SOB COMPARISON: Portable chest 08/29/2018. FINDINGS: LUNGS: No active pulmonary disease. PLEURA: No significant pleural effusion identified, no pneumothorax apparent. CARDIOVASCULAR: No aortic atherosclerotic calcification present. Normal cardiac size. No pulmonary vascular congestion. OSSEOUS STRUCTURES: No significant abnormalities. VISUALIZED UPPER ABDOMEN: Elevated left hemidiaphragm reiterated. OTHER FINDINGS: None. IMPRESSION: No interval acute cardiopulmonary disease appreciated. Elevated left hemidiaphragm reiterated.
[2018-09-09 17:12] LABS: BASO % 0.3 % (0.0-2.0); EOS % 0.7 % (0.0-4.0); HEMOGLOBIN 8.4 g/dL (11.0-16.0); LYMPH # 1.4 K/uL (1.0-4.3); LYMPH % 20.9 % (20.0-40.0); MEAN CELL VOLUME 87.1 fL (81.0-99.0); MEAN CORPUSCULAR HGB CONC 30.9 g/dL (33.0-37.0); MEAN PLATELET VOLUME 7.1 fL (7.2-11.7); MONO # 0.3 K/uL (0.0-0.8); MONO % 4.1 % (0.0-10.0); NEUT # 4.9 K/uL (1.8-7.0); RBC 3.13 Mil/uL (3.80-5.20); RED CELL DISTRIBUTION WIDTH 19.8 % (11.5-14.5); WHITE BLOOD COUNT 6.7 K/uL (4.8-10.8)
[2018-09-09] MEDS ORDERED: Vancomycin 1 GM 1 GM/250 ML BAG IVPB ONE (17:12)
[2018-09-09] MEDS ORDERED: Dextrose 5%/0.9% NS 1,000 ML IV ONE (17:12)
[2018-09-09] MEDS: Dextrose 5%/0.9% NS 1,000 ML IV SCH (17:17)
[2018-09-09 17:20] LABS: INR 1.2; PROTHROMBIN TIME 13.6 SECONDS (9.7-12.2)
--- NOTE | 2018-09-09 17:22 | CP.PCM.CON ---
History of Present Illness - History of Present Illness History of Present Illness: Surgery Progress Note for Dr. Pardo. Unable to obtain history from patient due to underlying dementia. History obtained through chart records and daughter who is at bedside. 87 year old female, past medical history significant for alzheimers dementia, hypertension, anemia, arthritis, and CHF recently discharged from hospital on 09/07. Patient was admitted for left lower extremity open wound. During hospitalization family refused surgical intervention and was treated for necrotic wound by podiatry. Patient returns to hospital following at home wound nurse recommendation for possible fracture of left ankle. Daughter at bedside denies any trauma/falls to the area and states the patient has been bed bound since discharge. PMH: See above PSH: Left lower extremity skin graft FH: No inherited disease SH: Remote history of tobacco use, denies alcohol or drugs ALL: NKDA Meds: See MAR Review of Systems - Review of Systems Systems not reviewed;Unavailable: Dementia Past Patient History - Past Medical History & Family History Past Medical History?: Yes - Past Social History Smoking Status: Former Smoker - CARDIAC Hx Hypercholesterolemia: Yes Hx Hypertension: Yes Hx Pacemaker: No - PULMONARY Hx Respiratory Disorders: No Other/Comment: FORMER SMOKER - NEUROLOGICAL Hx Alzheimer's Disease: Yes Hx Dementia: Yes - HEENT Hx HEENT Problems: No - RENAL Hx Chronic Kidney Disease: No - ENDOCRINE/METABOLIC Hx Endocrine Disorders: No - HEMATOLOGICAL/ONCOLOGICAL Hx Anemia: Yes - INTEGUMENTARY Hx Dermatological Problems: Yes Other/Comment: LEFT FOOT WOUND - MUSCULOSKELETAL/RHEUMATOLOGICAL Hx Arthritis: Yes (KNEE L>R; B/L ANKLE) Hx Rheumatoid Arthritis: Yes (B/L LE) - GASTROINTESTINAL Hx Gastrointestinal Disorders: No - GENITOURINARY/GYNECOLOGICAL Hx Genitourinary Disorders: Yes Hx Incontinence: Yes - PSYCHIATRIC Hx Substance Use: No - SURGICAL HISTORY Hx Mastectomy: No - ANESTHESIA Hx Anesthesia: Yes Hx Anesthesia Reactions: No Hx Malignant Hyperthermia: No Meds Allergies/Adverse Reactions: Allergies Allergy/AdvReac Type Severity Reaction Status Date / Time No Known Allergies Allergy Verified 03/23/17 11:41 - Medications Medications: Current Medications Donepezil HCl (Aricept) 10 mg PO HS [facility] Escitalopram Oxalate (Lexapro) 5 mg PO HS [facility] Ferrous Sulfate (Feosol) 325 mg PO DAILY [facility] Folic Acid (Folic Acid) 1 mg PO DAILY [facility] Vancomycin HCl (Vancomycin 1gm In Normal Saline Addvantage) 1 gm in 250 mls @ 167 mls/hr IVPB STAT STA; Protocol Stop: 09/09/18 17:41 Last Admin: 09/09/18 17:16 Dose: 167 mls/hr Dextrose/Sodium Chloride (Dextrose 5%/0.9% Ns 1000 Ml) 1,000 mls @ 70 mls/hr IV .[id number] [facility] Last Admin: 09/09/18 17:17 Dose: 70 mls/hr Piperacillin Sod/Tazobactam Sod (Zosyn 2.25 Gm Iv Premix) 2.25 gm in 50 mls @ 100 mls/hr IVPB ONCE ONE Stop: 09/09/18 18:29 Memantine (Namenda) 5 mg PO BID [facility] Metoprolol Tartrate (Lopressor) 25 mg PO DAILY [facility] Rosuvastatin Calcium (Crestor) 10 mg PO DAILY [facility] Topiramate (Topamax) 25 mg PO BID [facility] Physical Exam - Constitutional Appears: No Acute Distress - Eye Exam Eye Exam: Normal appearance - ENT Exam ENT Exam: Mucous Membranes Moist - Cardiovascular Exam Additional comments: RR - GI/Abdominal Exam GI & Abdominal Exam: Soft - Extremities Exam Additional comments: Left lower extremity with ankle invulsion, w/ bone penetration consistent with open fracture skin masurated erythematous from mid thompson to ankle LE has edema - Neurological Exam Neurological exam: Alert Results - Vital Signs Recent Vital Signs: Last Vital Signs Temp 98.7 F 09/09/18 16:13 Pulse 73 09/09/18 16:13 Resp 17 09/09/18 16:13 BP 104/53 L 09/09/18 16:13 Pulse Ox 100 09/09/18 16:13 - Labs Result Diagrams: 09/09/18 17:09 Labs: Laboratory Results - last 24 hr 09/09/18 17:09 WBC 6.7 RBC 3.13 L Hgb 8.4 L Hct 27.2 L MCV 87.1 MCH 27.0 MCHC 30.9 L RDW 19.8 H Plt Count 277 MPV 7.1 L Neut % (Auto) 74.0 Lymph % (Auto) 20.9 [place] % (Auto) 4.1 Eos % (Auto) 0.7 Baso % (Auto) 0.3 Neut # (Auto) 4.9 Lymph # (Auto) 1.4 [place] # (Auto) 0.3 Eos # (Auto) 0.0 Baso # (Auto) 0.0 Assessment & Plan - Assessment and Plan (Free Text) Assessment: 88 F w/ dementia presents to ED for possible fracture/bone exposure Plan: BKA vs AKA tomorrow AM NPO after midnight cardiac clearance abx pain management consent to obtained D/w Dr. Char Ndiaye, PGY1
[2018-09-09 17:39] LABS: ALB/GLOB RATIO 0.8 (1.0-2.1); ALBUMIN 2.6 g/dL (3.5-5.0); CALCIUM 7.7 mg/dl (8.6-10.4); TROPONIN I 0.286 ng/mL (0.00-0.120)
[2018-09-09] MEDS ORDERED: Piperacill/Tazo 2.25gm in Dex 2.25 GM/50 ML BAG IVPB ONE (18:00)
[2018-09-09] MEDS ORDERED: Potassium Chloride 20 mEq ER Tab PO STA (19:57)
[2018-09-09] MEDS ORDERED: Potassium Chloride 20 mEq ER Tab PO ONE (20:05)
[2018-09-10 07:19] LABS: HEMOGLOBIN 7.2 g/dL (11.0-16.0); MEAN CELL VOLUME 85.7 fL (81.0-99.0); MEAN CORPUSCULAR HEMOGLOBIN 27.3 pg (27.0-31.0); MEAN CORPUSCULAR HGB CONC 31.8 g/dL (33.0-37.0); MEAN PLATELET VOLUME 7.1 fL (7.2-11.7); RBC 2.65 Mil/uL (3.80-5.20); RED CELL DISTRIBUTION WIDTH 19.8 % (11.5-14.5)
[2018-09-10 07:26] LABS: CALCIUM 7.4 mg/dl (8.6-10.4)
[2018-09-10] MEDS: Dextrose 5%/0.9% NS 1,000 ML IV SCH ×2 (07:28→21:53)
--- NOTE | 2018-09-10 07:47 | CP.PCM.PN ---
Subjective - Date & Time of Evaluation Date of Evaluation: 09/10/18 Time of Evaluation: 07:00 - Subjective Subjective: Surgery progress note for Dr. Pardo Unable to obtain ROS due to underlying dementia. Daughter not a bedside. Yesterday consent was attempted for possible AKA vs BKA; however, daughter requested more time to decide. Objective - Vital Signs/Intake and Output Vital Signs (last 24 hours): Temp Pulse Resp BP Pulse Ox 97.8 F 98 H 18 103/49 L 99 09/10/18 07:00 09/10/18 07:00 09/10/18 07:00 09/10/18 07:00 09/10/18 07:00 - Medications Medications: Current Medications Donepezil HCl (Aricept) 10 mg PO HS [facility] Last Admin: 09/09/18 22:08 Dose: 10 mg Escitalopram Oxalate (Lexapro) 5 mg PO HS [facility] Last Admin: 09/09/18 22:08 Dose: 5 mg Ferrous Sulfate (Feosol) 325 mg PO DAILY [facility] Folic Acid (Folic Acid) 1 mg PO DAILY [facility] Heparin Sodium (Porcine) (Heparin) 5,000 units SC Q8 [facility] Last Admin: 09/10/18 07:03 Dose: Not Given Dextrose/Sodium Chloride (Dextrose 5%/0.9% Ns 1000 Ml) 1,000 mls @ 70 mls/hr IV .[id number] [facility] Last Admin: 09/10/18 07:28 Dose: 70 mls/hr Memantine (Namenda) 5 mg PO BID [facility] Metoprolol Tartrate (Lopressor) 25 mg PO DAILY [facility] Rosuvastatin Calcium (Crestor) 10 mg PO DAILY [facility] Topiramate (Topamax) 25 mg PO BID [facility] - Labs Labs: 09/10/18 07:02 09/10/18 07:02 PT 13.6 SECONDS (9.7-12.2) H 09/09/18 17:09 INR 1.2 09/09/18 17:09 APTT 31 SECONDS (21-34) 09/10/18 07:02 - Constitutional Appears: No Acute Distress - Eye Exam Eye Exam: Normal appearance - ENT Exam ENT Exam: Mucous Membranes Moist - Respiratory Exam Respiratory Exam: NORMAL BREATHING PATTERN - Extremities Exam Additional comments: Left lower extremity with ankle invulsion, w/ bone penetration consistent with open fracture skin masurated erythematous from mid thompson to ankle LE has edema - Neurological Exam Neurological Exam: Awake Assessment and Plan - Assessment and Plan (Free Text) Assessment: 88 F w/ dementia presents to ED for possible fracture/bone exposure Plan: BKA vs AKA Thursday abx pain management cardiac clearance will wait for possible consent from daughter consent to obtained D/w Dr. Char Ndiaye, PGY1
--- NOTE | 2018-09-10 14:30 | CP.PCM.CON ---
History of Present Illness - History of Present Illness History of Present Illness: 87F with PMH Alzheimer's Disease, Anemia, Arthritis (knees l>r), Dementia, HTN, Hypercholesterolemia, Rheumatoid Arthritis seen at bedside for left leg ulceration and right heel ulcer. was seen for this last admission and startedIV antibiotics family refused aggressive measures now returns with worsening wounds and NSTEMI and will need amputation Review of Systems - Review of Systems Systems not reviewed;Unavailable: Altered Mental Status All systems: reviewed and no additional remarkable complaints except - Constitutional Constitutional: As Per HPI - EENT Eyes: absent: As Per HPI, Blind Spots, Blurred Vision, Change in Vision, Decreased Night Vision, Diplopia, Discharge, Dry Eye, Exophthalmos, Floaters, Irritation, Itchy Eyes, Loss of Peripheral Vision, Pain, Photophobia, Requires Corrective Lenses, Sees Flashes, Spots in Vision, Tunnel Vision, Other Visual Disturbances, Loss of Vision, Other Ears: absent: As Per HPI, Decreased Hearing, Ear Discharge, Ear Pain, Tinnitus, Abnormal Hearing, Disequilibrium, Dizziness, Other Nose/Mouth/Throat: absent: As Per HPI, Epistaxis, Nasal Congestion, Nasal Discharge, Nasal Obstruction, Nasal Trauma, Nose Pain, Post Nasal Drip, Sinus Pain, Sinus Pressure, Bleeding Gums, Change in Voice, Dental Pain, Dry Mouth, Dysphagia, Halitosis, Hoarsness, Lip Swelling, Mouth Lesions, Mouth Pain, Odynophagia, Sore Throat, Throat Swelling, Tongue Swelling, Facial Pain, Neck Pain, Neck Mass, Other - Breasts Breasts: absent: As Per HPI, Change in Shape, Mass, Pain, Nipple Discharge, Nipple Inversion, Skin Changes, Swelling, Other - Cardiovascular Cardiovascular: absent: As Per HPI, Acrocyanosis, Chest Pain, Chest Pain at Rest, Chest Pain with Activity, Claudication, Diaphoresis, Dyspnea, Dyspnea on Exertion, Edema, Irregular Heart Rhythm, Pain Radiating to Arm/Neck/Jaw, Leg Edema, Leg Ulcers, Lightheadedness, Orthopnea, Palpitations, Paroxysmal Nocturnal Dyspnea, Pedal Edema, Radiating Pain, Rapid Heart Rate, Slow Heart Rate, Syncope, Other - Respiratory Respiratory: absent: As Per HPI, Cough, Dyspnea, Hemoptysis, Dyspnea on Exert ion, Wheezing, Snoring, Stridor, Pain on Inspiration, Chest Congestion, Excessive Mucous Production, Change in Mucous Color, Pain with Coughing, Other - Gastrointestinal Gastrointestinal: absent: As Per HPI, Abdominal Pain, Belching, Bloating, Change in Bowel Habits, Change in Stool Character, Coffee Ground Emesis, Constipation, Cramping, Diarrhea, Dyspepsia, Dysphagia, Early Satiety, Excessive Flatus, Fecal Incontinence, Heartburn, Hematemesis, Hematochezia, Loose Stools, Melena, Nausea, Odynophagia, Temesmus, Vomiting, Other - Genitourinary Genitourinary: absent: As Per HPI, Change in Urinary Stream, Difficulty U rinating, Dysuria, Flank Pain, Hematuria, Pyuria, Nocturia, Urinary Incontinence, Urinary Frequency, Urinary Hesitance, Urinary Urgency, Voiding Freq/Small Amts, Freq UTI, Hx Renal/Bladder Calculi, Hx /Renal Surgery, Bladder Distension, Other - Reproductive: Female Reproductive:Female: absent: As Per HPI, Amenorrhea, Amenorrhea/ Control, Currently Menstual, Cycle <21 Days, Cycle >35 Days, Cycle Variable, Menses 1-7 Days, Menses >/= 8 Days, Menses Variable, Cycle > 4 Weeks Between, No Menses for 6 Months, Heavy Menses, Light Menses, Normal Menses, Spotting Between Cycles, S/P Hysterectomy, Menopausal, Post Menopausal, Premenarche, Abnormal Vaginal Bleeding, Dysmenorrhea, Dyspareunia, Genital Lesions, Genital Pruritis, Pelvic Pain, Prolapse Symptoms, Sexual Dysfunction, Vaginal Discharge, Vaginal Dryness, Vaginal Odor, Vaginal Pruritis, Other - Menstruation Menstruation: absent: As Per HPI, Amenorrhea, Amenorrhea/ Control, Currently Menstual, Cycle <21 Days, Cycle >35 Days, Cycle Variable, Menses 1-7 Days, Menses >/= 8 Days, Menses Variable, Cycle > 4 Weeks Between, No Menses for 6 Months, Heavy Menses, Light Menses, Normal Menses, Spotting Between Cycles, S/P Hysterectomy, Menopausal, Post Menopausal, Premenarche, Abnormal Vaginal Bleeding, Dysmenorrhea, Other - Musculoskeletal Musculoskeletal: As Per HPI - Integumentary Integumentary: As Per HPI, Skin Pain, Wounds - Neurological Neurological: As Per HPI. absent: Abnormal Gait, Abnormal Hearing, Abnormal Movements, Abnormal Speech, Behavioral Changes, Burning Sensations, Confusion, Convulsions, Disequilibrium, Dizziness, Numbness, Focal Weakness, Frequent Falls, Headaches, Lack of Coordination, Loss of Vision, Memory Loss, Paresthesias, Radicular Pain, Restless Legs, Sensory Deficit, Syncope, Tingling, Tremor, Vertigo, Weakness, Other Visual Disturbances, Other - Psychiatric Psychiatric: absent: As Per HPI, Abnormal Sleep Pattern, Anhedonia, Anxiety, Auditory Hallucinations, Behavioral Changes, Change in Appetite, Change in Libido, Confusion, Depression, Difficulty Concentrating, Hallucinations, Homicidal Ideation, Hopelessness, Irritability, Memory Loss, Mood Swings, Panic Attacks, Paranoia, Suicidal Ideation, Visual Hallucinations, Tactile Hallucinations, Other - Endocrine Endocrine: absent: As Per HPI, Change in Body Appearance, Change in Libido, Cold Intolorance, Deepening of Voice, Excessive Sweating, Fatigue, Flushing, Heat Intolorance, Increase in Ring/Shoe/Hat Size, Palpitations, Polydipsia, Polyphagia, Polyuria, Other - Hematologic/Lymphatic Hematologic: absent: As Per HPI, Easy Bleeding, Easy Bruising, Lymphadenopathy, Other Past Patient History - Past Medical History & Family History Past Medical History?: Yes - Past Social History Smoking Status: Never Smoked - CARDIAC Hx Hypercholesterolemia: Yes Hx Hypertension: Yes Hx Pacemaker: No - PULMONARY Hx Respiratory Disorders: No Other/Comment: FORMER SMOKER - NEUROLOGICAL Hx Alzheimer's Disease: Yes Hx Dementia: Yes - HEENT Hx HEENT Problems: No - RENAL Hx Chronic Kidney Disease: No - ENDOCRINE/METABOLIC Hx Endocrine Disorders: No - HEMATOLOGICAL/ONCOLOGICAL Hx Anemia: Yes - INTEGUMENTARY Hx Dermatological Problems: Yes Other/Comment: LEFT FOOT WOUND - MUSCULOSKELETAL/RHEUMATOLOGICAL Hx Arthritis: Yes (KNEE L>R; B/L ANKLE) Hx Falls: No Hx Rheumatoid Arthritis: Yes (B/L LE) - GASTROINTESTINAL Hx Gastrointestinal Disorders: No - GENITOURINARY/GYNECOLOGICAL Hx Genitourinary Disorders: Yes Hx Incontinence: Yes - PSYCHIATRIC Hx Substance Use: No - SURGICAL HISTORY Hx Mastectomy: No - ANESTHESIA Hx Anesthesia: Yes Hx Anesthesia Reactions: No Hx Malignant Hyperthermia: No Meds Allergies/Adverse Reactions: Allergies Allergy/AdvReac Type Severity Reaction Status Date / Time No Known Allergies Allergy Verified 03/23/17 11:41 - Medications Medications: Current Medications Donepezil HCl (Aricept) 10 mg PO HS [facility] Last Admin: 02/07/19 22:08 Dose: 10 mg Escitalopram Oxalate (Lexapro) 5 mg PO HS [facility] Last Admin: 09/09/18 22:08 Dose: 5 mg Ferrous Sulfate (Feosol) 325 mg PO DAILY [facility] Last Admin: 09/10/18 11:01 Dose: 325 mg Folic Acid (Folic Acid) 1 mg PO DAILY [facility] Last Admin: 09/10/18 11:00 Dose: 1 mg Heparin Sodium (Porcine) (Heparin) 5,000 units SC Q8 [facility] Last Admin: 09/10/18 07:03 Dose: Not Given Dextrose/Sodium Chloride (Dextrose 5%/0.9% Ns 1000 Ml) 1,000 mls @ 70 mls/hr IV .[id number] [facility] Last Admin: 09/10/18 07:28 Dose: 70 mls/hr Memantine (Namenda) 5 mg PO BID [facility] Last Admin: 09/10/18 11:01 Dose: 5 mg Metoprolol Tartrate (Lopressor) 25 mg PO DAILY [facility] Last Admin: 09/10/18 11:01 Dose: Not Given Rosuvastatin Calcium (Crestor) 10 mg PO DAILY [facility] Topiramate (Topamax) 25 mg PO BID [facility] Last Admin: 09/10/18 11:00 Dose: 25 mg Physical Exam - Constitutional Appears: Confused, Cachectic, Chronically Ill - Head Exam Head Exam: ATRAUMATIC, NORMAL INSPECTION, NORMOCEPHALIC - Eye Exam Eye Exam: PERRL. absent: Scleral icterus - ENT Exam ENT Exam: Normal External Ear Exam - Neck Exam Neck exam: Negative for: Lymphadenopathy - Respiratory Exam Respiratory Exam: Decreased Breath Sounds, Rhonchi - Cardiovascular Exam Cardiovascular Exam: REGULAR RHYTHM, +S1, +S2 - GI/Abdominal Exam GI & Abdominal Exam: Diminished Bowel Sounds, Soft. absent: Tenderness - Rectal Exam Rectal Exam: Deferred - Exam Exam: NORMAL INSPECTION - Extremities Exam Extremities exam: Positive for: pedal edema. Negative for: calf tenderness, pedal pulses present - Back Exam Back exam: absent: CVA tenderness (L), CVA tenderness (R) - Neurological Exam Neurological exam: Altered - Psychiatric Exam Psychiatric exam: Depressed - Skin Skin Exam: Dry Results - Vital Signs Recent Vital Signs: Last Vital Signs Temp 97.8 F 09/10/18 07:00 Pulse 98 H 09/10/18 08:05 Resp 18 09/10/18 07:00 BP 103/49 L 09/10/18 07:00 Pulse Ox 99 09/10/18 07:00 - Labs Result Diagrams: 09/10/18 07:02 09/10/18 07:02 Labs: Laboratory Results - last 24 hr 09/09/18 09/09/18 09/09/18 17:09 17:09 17:09 WBC 6.7 RBC 3.13 L Hgb 8.4 L Hct 27.2 L MCV 87.1 MCH 27.0 MCHC 30.9 L RDW 19.8 H Plt Count 277 MPV 7.1 L Neut % (Auto) 74.0 Lymph % (Auto) 20.9 [place] % (Auto) 4.1 Eos % (Auto) 0.7 Baso % (Auto) 0.3 Neut # (Auto) 4.9 Lymph # (Auto) 1.4 [place] # (Auto) 0.3 Eos # (Auto) 0.0 Baso # (Auto) 0.0 PT 13.6 H INR 1.2 APTT 31 Sodium 140 Potassium 3.5 L Chloride 112 H Carbon Dioxide 21 L Anion Gap 11 BUN 12 Creatinine 1.4 H Est GFR ( Amer) 43 Est GFR (Non-Af Amer) 36 Random Glucose 104 Calcium 7.7 L Phosphorus Magnesium Total Bilirubin 0.2 AST 27 ALT 12 Alkaline Phosphatase 94 Troponin I 0.2860 H* NT-Pro-B Natriuret Pep 3710 H Total Protein 5.7 L Albumin 2.6 L Globulin 3.2 Albumin/Globulin Ratio 0.8 L Blood Type Antibody Screen 09/09/18 09/10/18 09/10/18 22:37 07:02 07:02 WBC 5.0 RBC 2.65 L Hgb 7.2 L Hct 22.7 L MCV 85.7 MCH 27.3 MCHC 31.8 L RDW 19.8 H Plt Count 238 MPV 7.1 L Neut % (Auto) Lymph % (Auto) [place] % (Auto) Eos % (Auto) Baso % (Auto) Neut # (Auto) Lymph # (Auto) [place] # (Auto) Eos # (Auto) Baso # (Auto) PT INR APTT Sodium Potassium Chloride Carbon Dioxide Anion Gap BUN Creatinine Est GFR ( Amer) Est GFR (Non-Af Amer) Random Glucose Calcium Phosphorus Magnesium Total Bilirubin AST ALT Alkaline Phosphatase Troponin I 0.2810 H* NT-Pro-B Natriuret Pep Total Protein Albumin Globulin Albumin/Globulin Ratio Blood Type B POSITIVE Antibody Screen Positive 09/10/18 09/10/18 07:02 07:02 WBC RBC Hgb Hct MCV MCH MCHC RDW Plt Count MPV Neut % (Auto) Lymph % (Auto) [place] % (Auto) Eos % (Auto) Baso % (Auto) Neut # (Auto) Lymph # (Auto) [place] # (Auto) Eos # (Auto) Baso # (Auto) PT INR APTT 31 Sodium 139 Potassium 3.4 L Chloride 116 H Carbon Dioxide 18 L Anion Gap 8 L BUN 10 Creatinine 1.3 H Est GFR ( Amer) 47 Est GFR (Non-Af Amer) 39 Random Glucose 125 H D Calcium 7.4 L Phosphorus 2.8 Magnesium 1.5 L Total Bilirubin AST ALT Alkaline Phosphatase Troponin I NT-Pro-B Natriuret Pep Total Protein Albumin Globulin Albumin/Globulin Ratio Blood Type Antibody Screen Assessment & Plan (1) Wound of left lower extremity Status: Acute (2) Cellulitis Status: Acute (3) Dementia Status: Acute (4) NSTEMI (non-ST elevated myocardial infarction) Status: Acute - Assessment and Plan (Free Text) Assessment: severely infected ulcers of leg in a demented 88 yo female with 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
[2018-09-10] MEDS ORDERED: Acetaminophen 650mg/20.3ml solution UD PO ONE (16:30)
[2018-09-10] MEDS: Vancomycin 1 gm/NS 200 ml 1 GM/200 ML BAG IVPB SCH (16:36)
--- NOTE | 2018-09-10 17:37 | CARD ---
APPROVED REPORT Date of service: 09/09/2018 EKG Measurement Heart [id number] <Conclusion> Sinus rhythm with marked sinus arrhythmia Otherwise normal ECG
--- NOTE | 2018-09-10 18:37 | CP.PCM.CON ---
History of Present Illness - History of Present Illness History of Present Illness: Podiatry Consult Note: Dr. Pierson 87 y/o female with PMHx of Alzheimer's Disease, Anemia, Arthritis (knees), Dementia, HTN, Hypercholesterolemia, Rheumatoid Arthritis was seen and evaluated at bedside for left leg necrotic wound and healed right heel wound. Patient was seen by Dr. Pierson in his office for dressing change who advised her to come to the ED for further work-up. Patient was recently admitted in the hospital and was discharged after the daughter refusing aggressive measures for LE wounds. Patient is a poor historian and history achieved by Dr. Pierson. At the time of the visit patient is alert and awake and appears in NAD. Patient is in contracted position. No other pedal complains at this time. PMHx: Alzheimer's Disease, Anemia, Arthritis (knees), Dementia, HTN, Hypercholesterolemia, Rheumatoid Arthritis PSHx: Left lower extremity skin graft SHx: Remote history of tobacco use, denies alcohol or drugs ALL: NKDA Review of Systems - Constitutional Constitutional: As Per HPI Past Patient History - Past Medical History & Family History Past Medical History?: Yes - Past Social History Smoking Status: Never Smoked - CARDIAC Hx Pacemaker: No - PULMONARY Hx Respiratory Disorders: No Other/Comment: FORMER SMOKER - NEUROLOGICAL Hx Alzheimer's Disease: Yes Hx Dementia: Yes - HEENT Hx HEENT Problems: No - RENAL Hx Chronic Kidney Disease: No - ENDOCRINE/METABOLIC Hx Endocrine Disorders: No - HEMATOLOGICAL/ONCOLOGICAL Hx Cancer: No - INTEGUMENTARY Hx Dermatological Problems: Yes Other/Comment: LEFT FOOT WOUND - MUSCULOSKELETAL/RHEUMATOLOGICAL Hx Arthritis: Yes (KNEE L>R; B/L ANKLE) Hx Falls: No Hx Rheumatoid Arthritis: Yes (B/L LE) - GASTROINTESTINAL Hx Gastrointestinal Disorders: No - GENITOURINARY/GYNECOLOGICAL Hx Genitourinary Disorders: Yes Hx Incontinence: Yes - PSYCHIATRIC Hx Substance Use: No - SURGICAL HISTORY Hx Mastectomy: No - ANESTHESIA Hx Anesthesia: Yes Hx Anesthesia Reactions: No Hx Malignant Hyperthermia: No Meds Allergies/Adverse Reactions: Allergies Allergy/AdvReac Type Severity Reaction Status Date / Time No Known Allergies Allergy Verified 03/23/17 11:41 - Medications Medications: Current Medications Donepezil HCl (Aricept) 10 mg PO HS [facility] Last Admin: 09/09/18 22:08 Dose: 10 mg Escitalopram Oxalate (Lexapro) 5 mg PO HS [facility] Last Admin: 09/09/18 22:08 Dose: 5 mg Ferrous Sulfate (Feosol) 325 mg PO DAILY [facility] Last Admin: 09/10/18 11:01 Dose: 325 mg Folic Acid (Folic Acid) 1 mg PO DAILY [facility] Last Admin: 09/10/18 11:00 Dose: 1 mg Furosemide (Lasix) 40 mg IVP ONCE ONE Stop: 09/10/18 20:01 Heparin Sodium (Porcine) (Heparin) 5,000 units SC Q8 [facility] Last Admin: 09/10/18 07:03 Dose: Not Given Dextrose/Sodium Chloride (Dextrose 5%/0.9% Ns 1000 Ml) 1,000 mls @ 70 mls/hr IV .[id number] [facility] Last Admin: 09/10/18 07:28 Dose: 70 mls/hr Vancomycin/Sodium Chloride (Vancomycin 1 Gm/Ns 200 Ml) 1 gm in 200 mls @ 133.333 mls/hr IVPB Q24H [facility]; Protocol Stop: 09/15/18 16:31 Last Admin: 09/10/18 16:36 Dose: 133.333 mls/hr Memantine (Namenda) 5 mg PO BID [facility] Last Admin: 09/10/18 17:29 Dose: 5 mg Metoprolol Tartrate (Lopressor) 25 mg PO DAILY [facility] Last Admin: 09/10/18 11:01 Dose: Not Given Rosuvastatin Calcium (Crestor) 10 mg PO DAILY [facility] Topiramate (Topamax) 25 mg PO BID [facility] Last Admin: 09/10/18 17:29 Dose: 25 mg Physical Exam - Constitutional Appears: Well, Non-toxic, No Acute Distress - Extremities Exam Additional comments: Dressing to bilateral LE is clean, dry and intact with no strike through noted Patient is in contracted position - Neurological Exam Neurological exam: Alert - Psychiatric Exam Psychiatric exam: Normal Affect, Normal Mood Results - Vital Signs Recent Vital Signs: Last Vital Signs Temp 98.3 F 09/10/18 15:46 Pulse 99 H 09/10/18 16:00 Resp 20 09/10/18 15:46 BP 147/81 09/10/18 15:46 Pulse Ox 99 09/10/18 15:46 - Labs Result Diagrams: 09/10/18 07:02 09/10/18 07:02 Labs: Laboratory Results - last 24 hr 09/09/18 09/10/18 09/10/18 22:37 07:02 07:02 WBC 5.0 RBC 2.65 L Hgb 7.2 L Hct 22.7 L MCV 85.7 MCH 27.3 MCHC 31.8 L RDW 19.8 H Plt Count 238 MPV 7.1 L APTT Sodium Potassium Chloride Carbon Dioxide Anion Gap BUN Creatinine Est GFR ( Amer) Est GFR (Non-Af Amer) Random Glucose Calcium Phosphorus Magnesium Troponin I 0.2810 H* Blood Type B POSITIVE Antibody Screen Negative Antibody Identification Cancelled 09/10/18 09/10/18 07:02 07:02 WBC RBC Hgb Hct MCV MCH MCHC RDW Plt Count MPV APTT 31 Sodium 139 Potassium 3.4 L Chloride 116 H Carbon Dioxide 18 L Anion Gap 8 L BUN 10 Creatinine 1.3 H Est GFR ( Amer) 47 Est GFR (Non-Af Amer) 39 Random Glucose 125 H D Calcium 7.4 L Phosphorus 2.8 Magnesium 1.5 L Troponin I Blood Type Antibody Screen Antibody Identification Assessment & Plan - Assessment and Plan (Free Text) Assessment: 87 y/o female with left leg necrotic wound and healed right heel wound Plan: Patient seen and evaluated Discussed plan with Dr. Kenna KILGORE; no leukocytosis Continue IV abx per ID Wound cx left leg shows growth of Proteus, Enterococcus from previous admission Foot xray: Osteopenia, no acute osseous findings, no soft tissue emphysema Tib/fib xray: No acute findings Continue multipodus boots at all times while in bed Wound dressed with Xeroform, ABD, DSD Vascular team on board - appreciated -Patient was scheduled for AKA vs. BKA today but daughter refused (asked for more time to decide) ID on board- appreciated - continue IV abx as per ID No surgical intervention as per podiatry team Podiatry will continue to follow patient while in-house - Date & Time Date: 09/10/18 Time: 18:41
[2018-09-10] MEDS: Piperacill/Tazo 2.25gm in Dex 2.25 GM/50 ML BAG IVPB SCH (20:53)
[2018-09-11] MEDS: Dextrose 5%/0.9% NS 1,000 ML IV SCH (00:32)
--- NOTE | 2018-09-11 01:35 | CON ---
DATE: 09/10/2018 REASON FOR CONSULTATION: Elevated troponin and preoperative evaluation. History was obtained form the patient at the bedside. HISTORY OF PRESENT ILLNESS: The patient is an 88-year-old female who is referred by her emergency department clinician, Dr. Pierson, because of left lower leg gangrene. According to the patient's daughter, the patient lives with her and had wound care taken care of by a visiting nurse at home. The patient is mainly bedridden, was being seated on a chair by the assistance of her daughter at home, but she does not ambulate. The patient has also dementia. According to the daughter, no known prior cardiac history, and the patient did not have any history of history of heart attack in the past. SOCIAL HISTORY: The patient is a nonsmoker. She lives with her daughter. MEDICATIONS: Aricept 10 mg at bedtime, Crestor 10 mg once a day, Feosol one tablet once a day, heparin 5000 units every 8 hours, Lexapro 5 mg once a day, Lopressor 25 mg daily, Namenda 5 mg once daily, Topamax 25 mg twice a day. REVIEW OF SYSTEMS: No nausea or vomiting. No recent syncope and no recent chest pain. PHYSICAL EXAMINATION: GENERAL: The patient is an elderly female who does not appear to be in respiratory distress. VITAL SIGNS: Blood pressure 103/49, heart rate 98, temperature 97.8, respirations 18. HEENT: Pale conjunctivae. CHEST: Diminished breath sounds over the bases. HEART: S1 and S2, regular. ABDOMEN: Soft. EXTREMITIES: Contracted left lower extremity with foul smelling from the foot dressing. LABORATORY DATA: Today's hemoglobin and hematocrit 7.2 and 22.7 respectively which is a drop of more than 1 g compared to yesterday. White count and platelet count are within normal limits. Today's SMA-7: Sodium 139, potassium 3.4, chloride 116, CO2 of 18, glucose 125, BUN 10, creatinine 1.3. Troponin 0.286 and 0.81. ProBNP 3710. EKG revealed sinus rhythm at the rate of 86 with sinus arrhythmia. ASSESSMENT: 1. Let foot gangrene. 2. Consider non-ST elevation myocardial infarction. 3. anemia. 4. Hypokalemia. 5. Chronic renal insufficiency. 6. Hypomagnesemia and hypocalcemia. RECOMMENDATIONS: Case was discussed at length with the patient's daughter at the bedside. The patient would be maintained on Crestor 10 mg once a day, Feosol one tablet once a day, Lopressor 25 mg daily. The patient has a moderate to high cardiac risk, under general anesthesia; however, seems that the surgery is unavoidable given the gangrenous changes in the left lower extremity and the final decision will be made by the patient's daughter. The patient is not a suitable candidate for any invasive cardiac workup at this time. In the mean time, the patient received orally potassium chloride replacement, and I will order magnesium sulfate intravenous replacement for her hypomagnesemia with a followup serum electrolytes in the morning. Angel Garcia MD
[2018-09-11] MEDS: Piperacill/Tazo 2.25gm in Dex 2.25 GM/50 ML BAG IVPB SCH ×3 (04:53→20:00)
--- NOTE | 2018-09-11 06:08 | HP ---
HISTORY OF PRESENT ILLNESS: The patient is an 88-year-old female with history of Alzheimer and chronic foot ulcer and history of hyperlipidemia, anemia, and arthritis. The patient was brought to the emergency room as per advice of her ocean freight agent because the patient has infected wound where the bone was exposed. The patient not able to give much information, however. The patient was seen recently in the hospital and was advised to do an amputation, but the family has refused and the patient was discharged on antibiotics, but now the patient has seen the ocean freight agent, Dr. Pierson in his office and who after reevaluation of the wound has advised to bring the patient back to the hospital where he would get an amputation. ALLERGIES: THE PATIENT HAS NO KNOWN ALLERGY. PAST MEDICAL HISTORY: As I mentioned are Alzheimer's, anemia, arthritis, dementia, hypertension, hyperlipidemia, and a chronic wound ulcer of the left foot. SOCIAL HISTORY: The patient lives with daughter. No history of smoking or alcohol abuse. FAMILY HISTORY: Father and mother of unknown cause. REVIEW OF SYSTEMS: Could not be obtained because of the patient's Alzheimer's dementia, but the patient does not appear in any distress. PHYSICAL EXAMINATION: GENERAL: The patient is awake but not able to give much information. VITAL SIGNS: Blood pressure is 119/64, pulse 109, respirations 20, temperature 97.7. NECK: There is some stiffness of the neck. LUNGS: Clear. HEART: Regular rate and rhythm. Positive extra systole, positive murmur. ABDOMEN: Soft. Positive bowel sounds. EXTREMITIES: There is a malodorous wound to the right leg and right foot which is with dressing that is soiled with a bloody-type secretion, very malodorous. NEUROLOGIC: As I mentioned, the patient is bedridden. LABORATORY DATA: The patient had some tests done. Today's WBC is 5, hemoglobin 7.2, hematocrit 22.7, and platelets is 238. Chemistry showed that the sodium 139, potassium 3.4, chloride 116, bicarb 18, BUN 10, creatinine 1.3, and glucose is 125, but the patient has also a troponin that is 0.286 and the second one is 0.2810. IMPRESSION: Infected wound ulcer of the left leg and abnormal troponin and Alzheimer's dementia, arthritis, dyslipidemia, hypertension. The patient had consult with Dr. Garcia, Cardiology; Dr. Reyes, Infectious Disease; and Dr. Pierson who is a ocean freight agent. The case was discussed with Umu Medeiros, the nurse practitioner, and also with the daughter. Consideration to do an amputation is there; however, we have to monitor the patient cardiac lin and we will need cardiology clearance by Dr. Garcia before proceeding to any surgery. In the meantime, the patient will have a blood transfusion because of the severe anemia. Jaquan Graf MD
[2018-09-11] MEDS: Magnesium Sulfate 1 gm in D5W 1 GM/100 ML BAG IVPB SCH ×2 (09:40→10:04)
--- NOTE | 2018-09-11 14:44 | CARD ---
APPROVED REPORT Date of service: 09/10/2018 EXAM: Two-dimensional and M-mode echocardiogram with Doppler and color Doppler. Other Information Quality : GoodRhythm : INDICATION Congestive Heart Failure Non STEMI RISK FACTORS Hypertension Diabetes 2D DIMENSIONS IVSd0.8 (0.7-1.1cm)LVDd2.9 (3.9-5.9cm) PWd0.6 (0.7-1.1cm)LA Frsxow34 (18-58mL) LVDs1.9 (2.5-4.0cm)FS (%) 34.3 % LVEF (%)65.1 (>50%)LVEF (Truong's)64.39 % M-Mode DIMENSIONS Left Atrium (MM)3.82 (2.5-4.0cm)IVSd1.00 (0.7-1.1cm) Aortic Root3.25 (2.2-3.7cm)LVDd4.66 (4.0-5.6cm) Aortic Cusp Exc.2.15 (1.5-2.0cm)PWd0.87 (0.7-1.1cm) FS (%) 36 %LVDs2.99 (2.0-3.8cm) LVEF (%)65 (>50%) Mitral Valve MV E Kkxnxrhw80.1cm/sMV A Vseiyxbf433.4cm/sE/A ratio0.8 TDI Lateral E' Peak V7.32cm/sMedial E' Peak V6.42cm/sE/Lateral E'10.4 E/Medial E'11.9 <Conclusion> tds, poor window. la,lv & ra rv size appears normal. normal lv wall motion,thickness& systolic funciton with lvef of 60-65%, lv diastolic dysfunciton grade one. sclerotic trileaflet aortic valve.no ai. sclerotic mitral leaflets with mild mr. normal looking tv & pv. normal size aortic root. no pericardial effusion.
[2018-09-11] MEDS: Vancomycin 1 gm/NS 200 ml 1 GM/200 ML BAG IVPB SCH (16:31)
--- NOTE | 2018-09-11 18:39 | CP.PCM.PN ---
Subjective - Date & Time of Evaluation Date of Evaluation: 09/11/18 Time of Evaluation: 14:30 - Subjective Subjective: Podiatry progress Note: Dr. Pierson 87 y/o female pateint seen and evaluated at bedside for left leg necrotic wound and healed right heel wound. Patient is a poor historian and information got through her medical chart. At the time of the visit patient is alert and awake and appears in NAD. Patient is in contracted position. No other pedal complains at this time. As per her chart o overnight F/N/V/C/SOB. Objective - Vital Signs/Intake and Output Vital Signs (last 24 hours): Temp Pulse Resp BP Pulse Ox 97.3 F L 85 20 125/65 100 09/11/18 16:16 09/11/18 16:16 09/11/18 16:16 09/11/18 16:16 09/11/18 16:16 Intake and Output: 09/11/18 09/11/18 06:59 18:59 Intake Total 2009 Balance 2009 - Medications Medications: Current Medications Donepezil HCl (Aricept) 10 mg PO HS [facility] Last Admin: 09/10/18 21:53 Dose: 10 mg Escitalopram Oxalate (Lexapro) 5 mg PO HS [facility] Last Admin: 09/10/18 21:51 Dose: 5 mg Ferrous Sulfate (Feosol) 325 mg PO DAILY [facility] Last Admin: 09/11/18 10:01 Dose: 325 mg Folic Acid (Folic Acid) 1 mg PO DAILY [facility] Last Admin: 09/11/18 10:01 Dose: 1 mg Heparin Sodium (Porcine) (Heparin) 5,000 units SC Q8 [facility] Last Admin: 09/11/18 13:23 Dose: Not Given Dextrose/Sodium Chloride (Dextrose 5%/0.9% Ns 1000 Ml) 1,000 mls @ 70 mls/hr IV .[id number] [facility] Last Admin: 09/11/18 00:32 Dose: 70 mls/hr Vancomycin/Sodium Chloride (Vancomycin 1 Gm/Ns 200 Ml) 1 gm in 200 mls @ 133.333 mls/hr IVPB Q24H [facility]; Protocol Stop: 09/15/18 16:31 Last Admin: 09/11/18 16:31 Dose: 133.333 mls/hr Piperacillin Sod/Tazobactam Sod (Zosyn 2.25 Gm Iv Premix) 2.25 gm in 50 mls @ 100 mls/hr IVPB Q8H [facility]; Protocol Last Admin: 09/11/18 13:00 Dose: 100 mls/hr Memantine (Namenda) 5 mg PO BID [facility] Last Admin: 09/11/18 17:13 Dose: 5 mg Metoprolol Tartrate (Lopressor) 25 mg PO DAILY [facility] Last Admin: 09/11/18 10:02 Dose: 25 mg Rosuvastatin Calcium (Crestor) 10 mg PO [facility] Topiramate (Topamax) 25 mg PO BID [facility] Last Admin: 09/11/18 17:14 Dose: 25 mg - Labs Labs: 09/10/18 07:02 09/10/18 07:02 PT 13.6 SECONDS (9.7-12.2) H 09/09/18 17:09 INR 1.2 09/09/18 17:09 APTT 31 SECONDS (21-34) 09/10/18 07:02 - Constitutional Appears: No Acute Distress - Head Exam Head Exam: ATRAUMATIC - Extremities Exam Additional comments: B/L LE focused exam: Vasc: DP/PT pulses fully palpable 2/4 B/L. Skin temperature warm to warm from proximal to distal. Cap refill < 3 seconds to all digits on the right side and < 4 seconds on the left side. No edema noted B/L. Neuro: Unable to assess due to patient's mental status. Derm: Left leg circumferential venous stasis ulceration measuring approximately 15 cm in length and 0.1 cm in depth seen on patient's thompson. Wound base is fibrogranular mix with thick, Sero-sanguineous drainage noted. Malodor noted. Minimal periwound erythema, Muscles and tendons are exposed. MSK: Unable to assess due to patient's mental status. LE is in contacted position L>R. - Neurological Exam Neurological Exam: Alert, Awake Assessment and Plan - Assessment and Plan (Free Text) Assessment: 87 y/o female with left leg necrotic wound and healed right heel wound Plan: Patient seen and evaluated with Dr Pierson Discussed plan with Dr. Pierson Charts, labs and vitals reviewed: VSS; no leukocytosis Wound cx left leg shows growth of Proteus, Enterococcus from previous admission Foot xray: Osteopenia, no acute osseous findings, no soft tissue emphysema Tib/fib xray: No acute findings Continue multipodus boots at all times while in bed Wound dressed with Xeroform, ABD, DSD Vascular team on board - appreciated -Patient was scheduled for AKA vs. BKA today but daughter refused (asked for more time to decide) ID on board- appreciated - continue IV abx as per ID No surgical intervention as per podiatry team. BKA might be considered. Dressing of the left LE using xerform, abd and DSD. DSD to the right heel. Multipodus boat to be applied all the times while the patient in bed. Podiatry will continue to follow up the patient while in-house
[2018-09-11 19:11] LABS: BASO % 0.6 % (0.0-2.0); EOS # 0.1 K/uL (0.0-0.7); EOS % 1.1 % (0.0-4.0); HEMOGLOBIN 12.8 g/dL (11.0-16.0); LYMPH # 1.8 K/uL (1.0-4.3); LYMPH % 27.1 % (20.0-40.0); MEAN CORPUSCULAR HEMOGLOBIN 28.2 pg (27.0-31.0); MEAN CORPUSCULAR HGB CONC 33.2 g/dL (33.0-37.0); MEAN PLATELET VOLUME 6.9 fL (7.2-11.7); MONO # 0.2 K/uL (0.0-0.8); MONO % 3.7 % (0.0-10.0); NEUT # 4.4 K/uL (1.8-7.0); NEUT % 67.5 % (50.0-75.0); NRBC % 0.1 % (0.0-2.0); RBC 4.54 Mil/uL (3.80-5.20); RED CELL DISTRIBUTION WIDTH 17.7 % (11.5-14.5); WHITE BLOOD COUNT 6.5 K/uL (4.8-10.8)
[2018-09-11 19:34] LABS: CALCIUM 7.9 mg/dl (8.6-10.4)
--- NOTE | 2018-09-11 22:40 | PN ---
DATE: 09/11/2018 SUBJECTIVE: The patient is lethargic. Does not appear to be in respiratory distress at this time. PHYSICAL EXAMINATION: VITAL SIGNS: Blood pressure 125/65, heart rate 85, temperature 97.3, and respirations 20. HEENT: Pale conjunctiva. CHEST: Poor air entry bilaterally. HEART: S1 and S2, regular. EXTREMITIES: Gangrenous left leg changes. ASSESSMENT: 1. Let foot gangrene. 2. Borderline troponin elevation. Consider non-ST elevation myocardial infarction. 3. Chronic renal insufficiency. 4. Hypokalemia, hypomagnesemia, and hypocalcemia. RECOMMENDATIONS: Continue current Crestor 10 mg once a day, Lexapro 5 mg once a day, Lopressor 25 mg once a day, IV vancomycin 2.25 g every 8 hours. Followup serum electrolytes today including potassium, magnesium, and calcium. The patient has moderate to high cardiac risk during her anticipated amputation which is unavoidable at this point. Angel Garcia MD
[2018-09-11 23:21] LABS: SQUAMOUS EPITHIAL 1 /hpf (0-5); URINE BILIRUBIN NEGATIVE (NEGATIVE); URINE BLOOD 1+ (NEGATIVE); URINE CLARITY Hazy (Clear); URINE COLOR Yellow (YELLOW); URINE GLUCOSE (UA) NORMAL (Normal); URINE LEUKOCYTE ESTERASE 1+ Leu/uL (Negative); URINE PROTEIN NEGATIVE (NEGATIVE); URINE UROBILINOGEN NORMAL mg/dL (0.2-1.0)
[2018-09-12] MEDS: Dextrose 5%/0.9% NS 1,000 ML IV SCH ×2 (02:03→23:30)
[2018-09-12] MEDS: Piperacill/Tazo 2.25gm in Dex 2.25 GM/50 ML BAG IVPB SCH ×3 (04:00→21:46)
[2018-09-12 07:26] LABS: BASO % 0.4 % (0.0-2.0); EOS # 0.1 K/uL (0.0-0.7); EOS % 1.5 % (0.0-4.0); HEMOGLOBIN 11.1 g/dL (11.0-16.0); LYMPH # 1.5 K/uL (1.0-4.3); LYMPH % 24.9 % (20.0-40.0); MEAN CELL VOLUME 85.3 fL (81.0-99.0); MEAN CORPUSCULAR HEMOGLOBIN 27.9 pg (27.0-31.0); MEAN CORPUSCULAR HGB CONC 32.7 g/dL (33.0-37.0); MEAN PLATELET VOLUME 6.9 fL (7.2-11.7); MONO # 0.3 K/uL (0.0-0.8); MONO % 4.8 % (0.0-10.0); NEUT # 4.2 K/uL (1.8-7.0); NEUT % 68.4 % (50.0-75.0); RBC 3.98 Mil/uL (3.80-5.20); RED CELL DISTRIBUTION WIDTH 17.6 % (11.5-14.5); WHITE BLOOD COUNT 6.1 K/uL (4.8-10.8)
[2018-09-12 07:46] LABS: ALB/GLOB RATIO 0.7 (1.0-2.1); ALBUMIN 2.2 g/dL (3.5-5.0); CALCIUM 7.5 mg/dl (8.6-10.4)
--- NOTE | 2018-09-12 08:31 | CP.PCM.PN ---
Subjective - Date & Time of Evaluation Date of Evaluation: 09/12/18 Time of Evaluation: 08:28 - Subjective Subjective: SURGERY NOTE FOR DR. HOLLIS 88F seen and examined at bedside. Patient resting comfortably, no acute events overnight. Objective - Vital Signs/Intake and Output Vital Signs (last 24 hours): Temp Pulse Resp BP Pulse Ox 98.8 F 97 H 20 143/70 100 09/11/18 23:20 09/12/18 04:44 09/11/18 23:20 09/11/18 23:20 09/11/18 23:20 Intake and Output: 09/12/18 09/12/18 06:59 18:59 Intake Total 560 Output Total 100 Balance 460 - Medications Medications: Current Medications Donepezil HCl (Aricept) 10 mg PO HS [facility] Last Admin: 09/11/18 21:45 Dose: 10 mg Escitalopram Oxalate (Lexapro) 5 mg PO HS [facility] Last Admin: 09/11/18 21:41 Dose: 5 mg Ferrous Sulfate (Feosol) 325 mg PO DAILY [facility] Last Admin: 09/11/18 10:01 Dose: 325 mg Folic Acid (Folic Acid) 1 mg PO DAILY [facility] Last Admin: 09/11/18 10:01 Dose: 1 mg Heparin Sodium (Porcine) (Heparin) 5,000 units SC Q8 [facility] Last Admin: 09/12/18 06:35 Dose: 5,000 units Dextrose/Sodium Chloride (Dextrose 5%/0.9% Ns 1000 Ml) 1,000 mls @ 70 mls/hr IV .[id number] [facility] Last Admin: 09/12/18 02:03 Dose: 70 mls/hr Vancomycin/Sodium Chloride (Vancomycin 1 Gm/Ns 200 Ml) 1 gm in 200 mls @ 133.333 mls/hr IVPB Q24H [facility]; Protocol Stop: 09/15/18 16:31 Last Admin: 09/11/18 16:31 Dose: 133.333 mls/hr Piperacillin Sod/Tazobactam Sod (Zosyn 2.25 Gm Iv Premix) 2.25 gm in 50 mls @ 100 mls/hr IVPB Q8H [facility]; Protocol Last Admin: 09/12/18 04:00 Dose: 100 mls/hr Memantine (Namenda) 5 mg PO BID [facility] Last Admin: 09/11/18 17:13 Dose: 5 mg Metoprolol Tartrate (Lopressor) 25 mg PO DAILY [facility] Last Admin: 09/11/18 10:02 Dose: 25 mg Rosuvastatin Calcium (Crestor) 10 mg PO HS [facility] Last Admin: 09/11/18 21:41 Dose: 10 mg Topiramate (Topamax) 25 mg PO BID [facility] Last Admin: 09/11/18 17:14 Dose: 25 mg - Labs Labs: 09/12/18 07:18 09/12/18 07:18 PT 13.6 SECONDS (9.7-12.2) H 09/09/18 17:09 INR 1.2 09/09/18 17:09 APTT 31 SECONDS (21-34) 09/10/18 07:02 - Constitutional Appears: No Acute Distress - Respiratory Exam Respiratory Exam: Clear to Ausculation Bilateral, NORMAL BREATHING PATTERN - Cardiovascular Exam Cardiovascular Exam: REGULAR RHYTHM, +S1, +S2 - GI/Abdominal Exam GI & Abdominal Exam: Soft. absent: Distended, Firm, Guarding, Rigid, Tenderness Assessment and Plan - Assessment and Plan (Free Text) Assessment: 88F with left lower leg Plan: Plan for OR tomorrow for amputation NPO after midnight Further recs discuss with Dr. Char Mcgee, PGY3
--- NOTE | 2018-09-12 15:27 | CP.PCM.PN ---
Subjective - Date & Time of Evaluation Date of Evaluation: 09/12/18 Time of Evaluation: 08:00 - Subjective Subjective: more alert afeb nad Objective - Vital Signs/Intake and Output Vital Signs (last 24 hours): Temp Pulse Resp BP Pulse Ox 98.1 F 83 20 134/64 100 09/12/18 08:00 09/12/18 14:45 09/12/18 08:00 09/12/18 09:36 09/12/18 08:00 Intake and Output: 09/12/18 09/12/18 06:59 18:59 Intake Total 560 Output Total 100 Balance 460 - Medications Medications: Current Medications Donepezil HCl (Aricept) 10 mg PO HS [facility] Last Admin: 09/11/18 21:45 Dose: 10 mg Escitalopram Oxalate (Lexapro) 5 mg PO HS [facility] Last Admin: 09/11/18 21:41 Dose: 5 mg Ferrous Sulfate (Feosol) 325 mg PO DAILY [facility] Last Admin: 09/12/18 09:36 Dose: 325 mg Folic Acid (Folic Acid) 1 mg PO DAILY [facility] Last Admin: 09/12/18 09:36 Dose: 1 mg Heparin Sodium (Porcine) (Heparin) 5,000 units SC Q8 [facility] Last Admin: 09/12/18 13:38 Dose: 5,000 units Dextrose/Sodium Chloride (Dextrose 5%/0.9% Ns 1000 Ml) 1,000 mls @ 70 mls/hr IV .[id number] [facility] Last Admin: 09/12/18 02:03 Dose: 70 mls/hr Vancomycin/Sodium Chloride (Vancomycin 1 Gm/Ns 200 Ml) 1 gm in 200 mls @ 133.333 mls/hr IVPB Q24H [facility]; Protocol Stop: 09/15/18 16:31 Last Admin: 09/11/18 16:31 Dose: 133.333 mls/hr Piperacillin Sod/Tazobactam Sod (Zosyn 2.25 Gm Iv Premix) 2.25 gm in 50 mls @ 100 mls/hr IVPB Q8H [facility]; Protocol Last Admin: 09/12/18 13:40 Dose: 100 mls/hr Potassium Chloride (Potassium Chloride 20 Meq/100 Ml) 20 meq in 100 mls @ 50 mls/hr IVPB Q2 [facility] Stop: 09/12/18 15:59 Last Admin: 09/12/18 14:48 Dose: 50 mls/hr Memantine (Namenda) 5 mg PO BID [facility] Last Admin: 09/12/18 09:37 Dose: 5 mg Metoprolol Tartrate (Lopressor) 25 mg PO DAILY [facility] Last Admin: 09/12/18 09:36 Dose: 25 mg Rosuvastatin Calcium (Crestor) 10 mg PO HS [facility] Last Admin: 09/11/18 21:41 Dose: 10 mg Topiramate (Topamax) 25 mg PO BID [facility] Last Admin: 09/12/18 09:37 Dose: 25 mg - Labs Labs: 09/12/18 07:18 09/12/18 07:18 PT 13.6 SECONDS (9.7-12.2) H 09/09/18 17:09 INR 1.2 09/09/18 17:09 APTT 31 SECONDS (21-34) 09/10/18 07:02 - Constitutional Appears: No Acute Distress, Confused, Cachectic, Chronically Ill - Head Exam Head Exam: NORMOCEPHALIC - Eye Exam Eye Exam: PERRL - ENT Exam ENT Exam: Mucous Membranes Dry - Neck Exam Neck Exam: absent: Lymphadenopathy - Respiratory Exam Respiratory Exam: Decreased Breath Sounds - Cardiovascular Exam Cardiovascular Exam: REGULAR RHYTHM - GI/Abdominal Exam GI & Abdominal Exam: Distended, Soft - Rectal Exam Rectal Exam: Deferred - Exam Exam: NORMAL INSPECTION - Extremities Exam Extremities Exam: Pedal Edema - Back Exam Back Exam: absent: CVA tenderness (L), CVA tenderness (R) - Neurological Exam Neurological Exam: Altered - Psychiatric Exam Psychiatric exam: Depressed - Skin Skin Exam: Dry Assessment and Plan (1) Wound of left lower extremity Status: Acute (2) Cellulitis Status: Acute (3) Dementia Status: Acute (4) NSTEMI (non-ST elevated myocardial infarction) Status: Acute - Assessment and Plan (Free Text) Assessment: cultures pending for OR in am discussewd with daughter
[2018-09-12] MEDS: Vancomycin 1 gm/NS 200 ml 1 GM/200 ML BAG IVPB SCH (17:59)
--- NOTE | 2018-09-12 19:33 | PN ---
DATE: 09/12/2018 SUBJECTIVE: The patient is lethargic but was fed by her daughter earlier and she was able to swallow her meal. She does not appear to be in any respiratory distress. OBJECTIVE: VITAL SIGNS: Blood pressure 134/64, heart rate 95, temperature 98.1, respiration 20. HEENT: Normocephalic. CHEST: Absent breath sounds at bases. HEART: S1 and S2 regular. EXTREMITIES: Gangrenous left foot. LABORATORY DATA: Today's hemoglobin and hematocrit 11.1 and 34. White count and platelet count are within normal limit. SMA-7: Sodium 138, potassium 3.3, chloride 115, CO2 20, glucose 120, BUN 9, creatinine is 1.5. Echocardiography study reported normal ejection fraction, grade 1 abnormal relaxation pattern. ASSESSMENT: 1. Consider non-ST elevation myocardial infarction. 2. Left foot gangrene. 3. Hypokalemia. 4. Chronic renal insufficiency. RECOMMENDATIONS: Continue current Aricept, continue Crestor 10 mg once a day, subcutaneous heparin 5000 units every 8 hours, Lopressor 25 mg once a day. The patient is receiving a total of 40 mEq of potassium chloride intravenous infusion. Continue IV vancomycin, IV Zosyn. The patient has moderate cardiac risk of undergoing amputation. Angel Garcia MD
[2018-09-13] MEDS: Piperacill/Tazo 2.25gm in Dex 2.25 GM/50 ML BAG IVPB SCH ×3 (03:27→19:54)
[2018-09-13 08:08] LABS: BASO % 0.6 % (0.0-2.0); EOS # 0.1 K/uL (0.0-0.7); EOS % 1.3 % (0.0-4.0); HEMOGLOBIN 11.2 g/dL (11.0-16.0); LYMPH # 1.5 K/uL (1.0-4.3); LYMPH % 25.1 % (20.0-40.0); MEAN CELL VOLUME 85.4 fL (81.0-99.0); MEAN CORPUSCULAR HEMOGLOBIN 28.2 pg (27.0-31.0); MEAN PLATELET VOLUME 6.9 fL (7.2-11.7); MONO # 0.3 K/uL (0.0-0.8); MONO % 4.3 % (0.0-10.0); NEUT % 68.7 % (50.0-75.0); RBC 3.97 Mil/uL (3.80-5.20); WHITE BLOOD COUNT 5.8 K/uL (4.8-10.8)
--- NOTE | 2018-09-13 08:19 | PN ---
DATE: 09/12/2018 SUBJECTIVE: Today, the patient is more alert and awake. The patient is not able to give much information about herself, but the patient does not appear to be in any distress. PHYSICAL EXAMINATION: VITAL SIGNS: Blood pressure 148/71, pulse 91, respirations 20, temperature 98.2. NECK: There is some stiffness of the neck. LUNGS: Clear. HEART: Regular rate and rhythm. ABDOMEN: Soft. EXTREMITIES: There is . LABORATORY DATA: The patient's blood work today: Sodium is 138, potassium 3.3, chloride 115, bicarb is 20, BUN 9, creatinine 1.5, random glucose 120. AST is 46, ALT 11, alkaline phosphatase 88. CBC: WBC is 6.1, hemoglobin 11, hematocrit 34, platelets 236. Coag showed PT 13.6, INR 1.2, and PTT 30. ASSESSMENT: The patient has an echocardiogram done that has shown an ejection fraction of 60% to 65% . PLAN: The plan is that the case was discussed with her daughter and they agreed . They understand that the patient is high risk for surgery and has no choice but to . The patient is better would like to to rehab, after surgery. Jaquan Graf MD
--- NOTE | 2018-09-13 08:26 | PN ---
DATE: 09/11/2018 SUBJECTIVE: Today is fully awake and alert. The daughter is on the bedside, no apparent shortness of breath or any distress. PHYSICAL EXAMINATION: VITAL SIGNS: Blood pressure is 110/72, pulse is 73, respiration is 18, and temperature 97.1. NECK: Supple, no JVD. LUNGS: Clear, but there is poor inspiratory effort. HEART: Regular rate and rhythm. Positive murmur. ABDOMEN: Soft and nontender. No palpable mass. EXTREMITIES: There is necrotic ulcer in the left leg. LABORATORY DATA: The patient's lab is pending and the patient had an echocardiogram done that showed that there is normal ejection fraction of 60-65% and normal looking size of aortic root and no pericardial effusion. PLAN: So, the plan is we are going to continue the current medication and possible discharge in 2 days. Jaquan Graf MD
[2018-09-13 08:35] LABS: ALB/GLOB RATIO 0.8 (1.0-2.1); ALBUMIN 2.4 g/dL (3.5-5.0); CALCIUM 7.8 mg/dl (8.6-10.4)
--- NOTE | 2018-09-13 11:50 | CP.PCM.PN ---
Subjective - Date & Time of Evaluation Date of Evaluation: 09/13/18 Time of Evaluation: 08:00 - Subjective Subjective: Vanco ;giovanna;l e;evated vanco on hold for or amp Objective - Vital Signs/Intake and Output Vital Signs (last 24 hours): Temp Pulse Resp BP Pulse Ox 97.9 F 93 H 18 152/80 H 95 09/13/18 07:00 09/13/18 07:04 09/13/18 07:00 09/13/18 08:18 09/13/18 07:00 Intake and Output: 09/13/18 09/13/18 06:59 18:59 Intake Total 2120 Output Total 565 Balance 1555 - Medications Medications: Current Medications Donepezil HCl (Aricept) 10 mg PO HS [facility] Last Admin: 09/12/18 21:47 Dose: 10 mg Escitalopram Oxalate (Lexapro) 5 mg PO HS [facility] Last Admin: 09/12/18 22:01 Dose: 5 mg Ferrous Sulfate (Feosol) 325 mg PO DAILY [facility] Last Admin: 09/12/18 09:36 Dose: 325 mg Folic Acid (Folic Acid) 1 mg PO DAILY [facility] Last Admin: 09/12/18 09:36 Dose: 1 mg Piperacillin Sod/Tazobactam Sod (Zosyn 2.25 Gm Iv Premix) 2.25 gm in 50 mls @ 100 mls/hr IVPB Q8H [facility]; Protocol Last Admin: 09/13/18 03:27 Dose: 100 mls/hr Memantine (Namenda) 5 mg PO BID [facility] Last Admin: 09/12/18 17:58 Dose: 5 mg Metoprolol Tartrate (Lopressor) 25 mg PO DAILY [facility] Last Admin: 09/13/18 08:18 Dose: 25 mg Rosuvastatin Calcium (Crestor) 10 mg PO HS [facility] Last Admin: 09/12/18 21:47 Dose: 10 mg Topiramate (Topamax) 25 mg PO BID [facility] Last Admin: 09/12/18 17:58 Dose: 25 mg - Labs Labs: 09/13/18 07:57 09/13/18 07:57 PT 13.6 SECONDS (9.7-12.2) H 09/09/18 17:09 INR 1.2 09/09/18 17:09 APTT 31 SECONDS (21-34) 09/10/18 07:02 - Constitutional Appears: Non-toxic, Cachectic, Chronically Ill - Head Exam Head Exam: NORMOCEPHALIC - Eye Exam Eye Exam: absent: Scleral icterus - ENT Exam ENT Exam: Mucous Membranes Dry - Neck Exam Neck Exam: absent: Lymphadenopathy - Respiratory Exam Respiratory Exam: Decreased Breath Sounds - Cardiovascular Exam Cardiovascular Exam: REGULAR RHYTHM - GI/Abdominal Exam GI & Abdominal Exam: Distended, Soft - Rectal Exam Rectal Exam: Deferred - Exam Exam: NORMAL INSPECTION - Extremities Exam Extremities Exam: Calf Tenderness, Pedal Edema, Tenderness. absent: Normal Inspection - Back Exam Back Exam: absent: CVA tenderness (L), CVA tenderness (R) Assessment and Plan (1) Wound of left lower extremity Status: Acute (2) Cellulitis Status: Acute (3) Dementia Status: Acute (4) NSTEMI (non-ST elevated myocardial infarction) Status: Acute - Assessment and Plan (Free Text) Assessment: mery ferguson
[2018-09-13] MEDS ORDERED: Propofol 10 mg/ml Inj (20 ML) ONE (12:09)
[2018-09-13] MEDS ORDERED: Phenylephrine 10 mg/ml Inj ONE (12:32)
[2018-09-13] MEDS ORDERED: HYDROmorphone 0.5 mg/0.5 ml ISec IVP PRN (13:58)
[2018-09-13] MEDS ORDERED: Morphine 4 MG/ML VIAL IVP PRN (14:11)
--- NOTE | 2018-09-13 14:17 | PCM.SURG1 ---
Surgeon's Initial Post Op Note - Surgeon's Notes Surgeon: Dr. Pardo Director Integrated: Dr. Magaña, Armida Haynes Type of Anesthesia: General Endo Pre-Operative Diagnosis: Gangrene left leg, Contracture Operative Findings: See operative report Post-Operative Diagnosis: Same Operation Performed: Left Above Knee amputation Specimen/Specimens Removed: Left leg Estimated Blood Loss: EBL {In ML}: 500 Blood Products Given: N/A Drains Used: No Drains Post-Op Condition: Good Date of Surgery/Procedure: 09/13/18 Time of Surgery/Procedure: 14:16
--- NOTE | 2018-09-13 22:17 | PN ---
DATE: 09/13/2018 SUBJECTIVE: The patient underwent left above-knee amputation. I saw the patient in the recovery room. She was not complaining of pain, and she was hemodynamically stable with sinus rhythm unremarkable. PHYSICAL EXAMINATION: VITAL SIGNS: Blood pressure 140/68, heart rate 76, temperature 97.1, respiration 14. HEENT: Normocephalic. CHEST: Clear. HEART: S1 and S2 are regular. LABORATORY DATA: Today's hemoglobin and hematocrit in the morning 11.1 and 33.9, white count and platelet count are within normal limit. Today's SMA-7 in a.m.: Sodium 139, potassium 4, chloride 116, CO2 of 19, glucose 115, BUN 8, creatinine 1.5. ASSESSMENT: 1. 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 2. Status post non-ST elevation myocardial infarction. 3. Anemia, requiring 1 unit of packed red blood cells transfusion. RECOMMENDATIONS: Resume Crestor 10 mg once a day. Resume Lopressor at 25 mg daily. Resume telemetry monitoring. Continue IV Zosyn at 2.25 g every 8 hours. Obtain a postoperative EKG. Angel Garcia MD
--- NOTE | 2018-09-13 23:41 | OP ---
PROCEDURE DATE: 09/13/2018 PREOPERATIVE DIAGNOSIS: Gangrene of left leg. PROCEDURE CARRIED OUT: Left above-knee amputation. SURGEON: Shakir Pardo Jr., MD INDICATIONS: The patient is an 88-year-old woman with established gangrene of the left leg. Not a candidate for revascularization. OPERATIVE FINDINGS: Standard left above-knee amputation was carried out. ESTIMATED BLOOD LOSS: 500 mL. DESCRIPTION OF PROCEDURE: The patient was given general anesthesia and intravenous antibiotics. The leg was amputated above-knee level, standard flaps with fish-mouth incision was then used. The wound was approximated after obtaining hemostasis. The femoral artery was patent with excellent brisk bleeding. After approximation of the edges with skin clips and nylon sutures, the procedure was terminated and compressive dressing applied. OPERATION CARRIED OUT: Left above-knee amputation. Shakir Pardo Jr., MD
--- NOTE | 2018-09-14 02:34 | PN ---
DATE: 09/13/2018 SUBJECTIVE: Today, the patient has a surgery done. Today, the patient had left above-knee amputation. She was doing well and was good as per Dr. Prado's decision. PHYSICAL EXAMINATION: VITAL SIGNS: The patient has a blood pressure now of 142/77, pulse 85, respirations 20, temperature 97.7. LUNGS: Poor inspiratory effort. HEART: Regular rate and rhythm. ABDOMEN: Soft. EXTREMITIES: Has left AKA. ASSESSMENT AND PLAN: We are going to continue current treatment, and also we are going to repeat the blood work in the morning. The case was discussed with Umu Medeiros, the nurse practitioner. Jaquan Graf MD
[2018-09-14] MEDS: Piperacill/Tazo 2.25gm in Dex 2.25 GM/50 ML BAG IVPB SCH ×2 (03:59→21:11)
[2018-09-14 07:26] LABS: BASO % 0.2 % (0.0-2.0); EOS % 0.4 % (0.0-4.0); LYMPH # 1.2 K/uL (1.0-4.3); LYMPH % 16.4 % (20.0-40.0); MEAN CELL VOLUME 85.5 fL (81.0-99.0); MEAN CORPUSCULAR HEMOGLOBIN 28.3 pg (27.0-31.0); MEAN PLATELET VOLUME 6.9 fL (7.2-11.7); MONO # 0.3 K/uL (0.0-0.8); MONO % 4.1 % (0.0-10.0); NEUT # 5.6 K/uL (1.8-7.0); NEUT % 78.9 % (50.0-75.0); RBC 3.27 Mil/uL (3.80-5.20); RED CELL DISTRIBUTION WIDTH 18.2 % (11.5-14.5); WHITE BLOOD COUNT 7.2 K/uL (4.8-10.8)
[2018-09-14 07:38] LABS: CALCIUM 7.3 mg/dl (8.6-10.4); HEMOGLOBIN 9.2 g/dL (11.0-16.0)
--- NOTE | 2018-09-14 17:17 | CP.PCM.PN ---
Subjective - Date & Time of Evaluation Date of Evaluation: 09/14/18 Time of Evaluation: 07:00 - Subjective Subjective: s/p aka gangrene tolerated well Objective - Vital Signs/Intake and Output Vital Signs (last 24 hours): Temp Pulse Resp BP Pulse Ox 98.0 F 108 H 20 134/68 100 09/14/18 08:00 09/14/18 08:00 09/14/18 08:00 09/14/18 10:48 09/14/18 08:00 Intake and Output: 09/14/18 09/14/18 06:59 18:59 Output Total 300 Balance -300 - Medications Medications: Current Medications Donepezil HCl (Aricept) 10 mg PO HS [facility] Last Admin: 09/13/18 21:48 Dose: Not Given Escitalopram Oxalate (Lexapro) 5 mg PO [facility] Last Admin: 09/13/18 21:48 Dose: Not Given Ferrous Sulfate (Feosol) 325 mg PO DAILY [facility] Last Admin: 09/14/18 10:47 Dose: 325 mg Folic Acid (Folic Acid) 1 mg PO DAILY [facility] Last Admin: 09/14/18 10:47 Dose: 1 mg Hydromorphone HCl (Dilaudid) 0.5 mg IVP Q10M PRN PRN Reason: Pain, moderate (4-7) Piperacillin Sod/Tazobactam Sod (Zosyn 2.25 Gm Iv Premix) 2.25 gm in 50 mls @ 100 mls/hr IVPB Q8H [facility]; Protocol Last Admin: 09/14/18 03:59 Dose: 100 mls/hr Memantine (Namenda) 5 mg PO BID [facility] Last Admin: 09/14/18 10:47 Dose: 5 mg Metoprolol Tartrate (Lopressor) 25 mg PO DAILY [facility] Last Admin: 09/14/18 10:48 Dose: 25 mg Morphine Sulfate (Morphine) 4 mg IVP Q4 PRN PRN Reason: Pain, moderate (4-7) Ondansetron HCl (Zofran Inj) 4 mg IVP Q4 PRN PRN Reason: Nausea/Vomiting Stop: 09/15/18 14:13 Rosuvastatin Calcium (Crestor) 10 mg PO HS [facility] Last Admin: 09/13/18 21:48 Dose: Not Given Topiramate (Topamax) 25 mg PO BID [facility] Last Admin: 02/12/19 10:48 Dose: 25 mg - Labs Labs: 09/14/18 07:06 09/14/18 07:06 PT 13.6 SECONDS (9.7-12.2) H 09/09/18 17:09 INR 1.2 09/09/18 17:09 APTT 31 SECONDS (21-34) 09/10/18 07:02 - Constitutional Appears: Non-toxic, Confused, Cachectic, Chronically Ill - Head Exam Head Exam: NORMOCEPHALIC - Eye Exam Eye Exam: absent: Scleral icterus - ENT Exam ENT Exam: Mucous Membranes Dry - Neck Exam Neck Exam: absent: Lymphadenopathy - Respiratory Exam Respiratory Exam: Decreased Breath Sounds - Cardiovascular Exam Cardiovascular Exam: REGULAR RHYTHM - GI/Abdominal Exam GI & Abdominal Exam: Distended, Soft - Rectal Exam Rectal Exam: Deferred - Exam Exam: NORMAL INSPECTION - Extremities Exam Extremities Exam: absent: Normal Inspection, Pedal Edema Additional comments: left aka + - Back Exam Back Exam: absent: CVA tenderness (L), CVA tenderness (R) - Psychiatric Exam Psychiatric exam: Depressed - Skin Skin Exam: Dry Assessment and Plan (1) Wound of left lower extremity Status: Acute (2) Cellulitis Status: Acute (3) Dementia Status: Acute (4) NSTEMI (non-ST elevated myocardial infarction) Status: Acute - Assessment and Plan (Free Text) Assessment: s/p aka left
--- NOTE | 2018-09-14 18:36 | PN ---
DATE: 09/14/2018 SUBJECTIVE: The patient is comfortable. She is being fed her lunch by her daughter at the bedside and no reported ventricular arrhythmia. PHYSICAL EXAMINATION: VITAL SIGNS: Blood pressure 132/68, heart rate 108, temperature 98, and respirations 20. HEENT: Pale conjunctivae. CHEST: Diminished breath sounds over the bases. HEART: S1 and S2 regular. EXTREMITIES: Left above-knee amputation. LABORATORY DATA: Today's hemoglobin and hematocrit are 9.2 and 27.9. White count and platelet count are within normal limits. Today's SMA-7: Sodium 138, potassium 3.6, chloride 117, CO2 17, glucose 110, BUN 9, creatinine 1.6. ASSESSMENT: 1. 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 2. Xie-WV-[id number] myocardial infarction. 3. Anemia. RECOMMENDATIONS: Continue IV Zosyn p.r.n. Continue Feosol 1 tablet daily. Continue Lopressor 25 mg daily. Morphine sulfate 4 mg intravenously every 4 hours p.r.n. IV Zosyn 2.25 g every 8 hours. I will follow the EKG that was ordered yesterday which is not available in [employer] database or chart yet. Angel Garcia MD
[2018-09-15] MEDS: Piperacill/Tazo 2.25gm in Dex 2.25 GM/50 ML BAG IVPB SCH ×3 (04:31→20:50)
--- NOTE | 2018-09-15 06:59 | PN ---
DATE: 09/14/2018 SUBJECTIVE: Today, the patient is much more alert and awake, smiling and mumbling to verbal stimuli and no apparent distress. Daughter is at the bedside. PHYSICAL EXAMINATION: VITAL SIGNS: Blood pressure 134/68, pulse is 99 to 108, respirations 20, temperature 98 degree Fahrenheit. NECK: Supple. No JVD. LUNGS: Poor respiratory effort. HEART: Regular rate and rhythm. Positive extra beat at times. ABDOMEN: Soft. Positive bowel sound. EXTREMITIES: The patient has a left AKA and there is no bleeding noted. PLAN: We are going to continue to monitor the patient and consider sending the patient to subacute rehab. The case was discussed with Dr. Pardo, the surgeon, and also with the nurse practitioner, Umu Medeiros. Jaquan Graf MD
[2018-09-15 07:41] LABS: BASO % 0.5 % (0.0-2.0); EOS # 0.1 K/uL (0.0-0.7); EOS % 0.8 % (0.0-4.0); HEMOGLOBIN 8.6 g/dL (11.0-16.0); LYMPH # 1.6 K/uL (1.0-4.3); LYMPH % 20.3 % (20.0-40.0); MEAN CELL VOLUME 85.5 fL (81.0-99.0); MEAN CORPUSCULAR HEMOGLOBIN 28.3 pg (27.0-31.0); MEAN CORPUSCULAR HGB CONC 33.1 g/dL (33.0-37.0); MEAN PLATELET VOLUME 6.6 fL (7.2-11.7); MONO # 0.4 K/uL (0.0-0.8); NEUT # 5.9 K/uL (1.8-7.0); NEUT % 73.4 % (50.0-75.0); RBC 3.05 Mil/uL (3.80-5.20); RED CELL DISTRIBUTION WIDTH 18.7 % (11.5-14.5)
--- NOTE | 2018-09-15 12:04 | CP.PCM.PN ---
Subjective - Date & Time of Evaluation Date of Evaluation: 09/15/18 Time of Evaluation: 10:00 - Subjective Subjective: Vascular Surgery: Dr. Pardo Pt seen and examined. No acute overnight events. Pt is POD#2 from above knee amputation. She continues to be at her baseline dementia and is unable to respond appropriately to commands. No fevers recorded overnight. Objective - Vital Signs/Intake and Output Vital Signs (last 24 hours): Temp Pulse Resp BP Pulse Ox 98.2 F 96 H 18 132/74 100 09/15/18 07:00 09/15/18 07:00 09/15/18 07:00 09/15/18 09:07 09/15/18 07:00 Intake and Output: 09/15/18 09/15/18 06:59 18:59 Intake Total 100 Output Total 50 Balance 50 - Medications Medications: Current Medications Donepezil HCl (Aricept) 10 mg PO HS [facility] Last Admin: 09/14/18 21:10 Dose: 10 mg Escitalopram Oxalate (Lexapro) 5 mg PO HS [facility] Last Admin: 09/14/18 21:10 Dose: 5 mg Ferrous Sulfate (Feosol) 325 mg PO DAILY [facility] Last Admin: 09/15/18 09:08 Dose: 325 mg Folic Acid (Folic Acid) 1 mg PO DAILY [facility] Last Admin: 09/15/18 09:08 Dose: 1 mg Hydromorphone HCl (Dilaudid) 0.5 mg IVP Q10M PRN PRN Reason: Pain, moderate (4-7) Piperacillin Sod/Tazobactam Sod (Zosyn 2.25 Gm Iv Premix) 2.25 gm in 50 mls @ 100 mls/hr IVPB Q8H [facility]; Protocol Last Admin: 09/15/18 04:31 Dose: 100 mls/hr Memantine (Namenda) 5 mg PO BID [facility] Last Admin: 09/15/18 09:08 Dose: 5 mg Metoprolol Tartrate (Lopressor) 25 mg PO DAILY [facility] Last Admin: 09/15/18 09:07 Dose: 25 mg Morphine Sulfate (Morphine) 4 mg IVP Q4 PRN PRN Reason: Pain, moderate (4-7) Ondansetron HCl (Zofran Inj) 4 mg IVP Q4 PRN PRN Reason: Nausea/Vomiting Stop: 09/15/18 14:13 Rosuvastatin Calcium (Crestor) 10 mg PO HS [facility] Last Admin: 09/14/18 21:10 Dose: 10 mg Topiramate (Topamax) 25 mg PO BID [facility] Last Admin: 09/15/18 09:08 Dose: 25 mg - Labs Labs: 09/15/18 07:35 09/14/18 07:06 PT 13.6 SECONDS (9.7-12.2) H 09/09/18 17:09 INR 1.2 09/09/18 17:09 APTT 31 SECONDS (21-34) 09/10/18 07:02 - Constitutional Appears: No Acute Distress - Head Exam Head Exam: ATRAUMATIC, NORMOCEPHALIC - ENT Exam ENT Exam: Mucous Membranes Moist - Respiratory Exam Respiratory Exam: NORMAL BREATHING PATTERN - Extremities Exam Additional comments: left above knee amputation stump with dressing, C/D/I - Neurological Exam Neurological Exam: Awake - Skin Skin Exam: Dry, Warm Assessment and Plan - Assessment and Plan (Free Text) Assessment: 88F s/p AKA; POD#2 Plan: - no further surgical intervention at this time - staple/suture removal in 2 weeks - f/u with Dr. Pardo upon discharge [place]
--- NOTE | 2018-09-15 15:56 | CP.PCM.PN ---
Subjective - Date & Time of Evaluation Date of Evaluation: 09/15/18 Time of Evaluation: 08:00 - Subjective Subjective: s/p AKA more alert afeb rx renewed Objective - Vital Signs/Intake and Output Vital Signs (last 24 hours): Temp Pulse Resp BP Pulse Ox 98.2 F 80 18 132/74 100 09/15/18 07:00 09/15/18 07:05 09/15/18 07:00 09/15/18 09:07 09/15/18 07:00 Intake and Output: 09/15/18 09/15/18 06:59 18:59 Intake Total 100 320 Output Total 50 100 Balance 50 220 - Medications Medications: Current Medications Donepezil HCl (Aricept) 10 mg PO HS [facility] Last Admin: 09/14/18 21:10 Dose: 10 mg Escitalopram Oxalate (Lexapro) 5 mg PO HS [facility] Last Admin: 09/14/18 21:10 Dose: 5 mg Ferrous Sulfate (Feosol) 325 mg PO DAILY [facility] Last Admin: 09/15/18 09:08 Dose: 325 mg Folic Acid (Folic Acid) 1 mg PO DAILY [facility] Last Admin: 09/15/18 09:08 Dose: 1 mg Piperacillin Sod/Tazobactam Sod (Zosyn 2.25 Gm Iv Premix) 2.25 gm in 50 mls @ 100 mls/hr IVPB Q8H [facility]; Protocol Last Admin: 09/15/18 12:41 Dose: 100 mls/hr Memantine (Namenda) 5 mg PO BID [facility] Last Admin: 09/15/18 09:08 Dose: 5 mg Metoprolol Tartrate (Lopressor) 25 mg PO DAILY [facility] Last Admin: 09/15/18 09:07 Dose: 25 mg Morphine Sulfate (Morphine) 4 mg IVP Q4 PRN PRN Reason: Pain, moderate (4-7) Rosuvastatin Calcium (Crestor) 10 mg PO HS [facility] Last Admin: 09/14/18 21:10 Dose: 10 mg Topiramate (Topamax) 25 mg PO BID [facility] Last Admin: 09/15/18 09:08 Dose: 25 mg - Labs Labs: 09/15/18 07:35 09/14/18 07:06 PT 13.6 SECONDS (9.7-12.2) H 09/09/18 17:09 INR 1.2 09/09/18 17:09 APTT 31 SECONDS (21-34) 09/10/18 07:02 - Constitutional Appears: Confused, Cachectic, Chronically Ill - Head Exam Head Exam: NORMOCEPHALIC - Eye Exam Eye Exam: absent: Scleral icterus - ENT Exam ENT Exam: Mucous Membranes Dry - Neck Exam Neck Exam: absent: Lymphadenopathy - Respiratory Exam Respiratory Exam: Decreased Breath Sounds - Cardiovascular Exam Cardiovascular Exam: REGULAR RHYTHM - GI/Abdominal Exam GI & Abdominal Exam: Distended - Rectal Exam Rectal Exam: Deferred - Exam Exam: NORMAL INSPECTION - Extremities Exam Extremities Exam: absent: Pedal Edema Additional comments: left aka - Back Exam Back Exam: absent: CVA tenderness (L), CVA tenderness (R) - Neurological Exam Neurological Exam: Alert, Altered, Awake Assessment and Plan (1) Wound of left lower extremity Status: Acute (2) Cellulitis Status: Acute (3) Dementia Status: Acute (4) NSTEMI (non-ST elevated myocardial infarction) Status: Acute - Assessment and Plan (Free Text) Assessment: cont iv rx x 7 days
--- NOTE | 2018-09-15 22:01 | PN ---
DATE: 09/15/2018 SUBJECTIVE: The patient is comfortable in bed. Her daughter is feeding her. monitor revealed sinus rhythm with periods of atrial fibrillation and the same thing was evident on the EKG. PHYSICAL EXAMINATION: VITAL SIGNS: Blood pressure 118/68, heart rate 99, temperature 98.1, respirations 18. HEENT: Pale conjunctivae. CHEST: Diminished breath sounds over the bases. HEART: S1 and S2, regular. ABDOMEN: Soft. LABORATORY DATA: Hemoglobin and hematocrit are 8.6 and 26.1. White count and platelet count are within normal limits. ASSESSMENT: 1. 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 2. Paroxysmal atrial fibrillation. 3. Status post dhe-RX-pygyiksfj myocardial infarction. 4. Anemia. RECOMMENDATIONS: Continue current Crestor 10 mg once a day, Lopressor 25 mg twice a day, IV Zosyn at 2.25 g every 8 hours. Consider initiating Eliquis 2.5 mg twice a day if there is no contraindication from the surgical point. Angel Garcia MD
--- NOTE | 2018-09-15 22:57 | PN ---
DATE: 09/15/2018 SUBJECTIVE: Today, the patient was seen early this morning. The patient was smiling, pleasant, trying to start a conversation, but cannot understand words. The patient has no apparent shortness of breath, no apparent distress. PHYSICAL EXAMINATION: VITAL SIGNS: Blood pressure is 170/62, pulse of 83 and sometimes 100. HEART: Regular rate and rhythm. ABDOMEN: Soft. Nontender. No palpable mass. EXTREMITIES: There is affected left AKA, but no smell, no bleeding. LABORATORY DATA: The patient had the blood test done today, showed WBC 8, hemoglobin 8.6, hematocrit 26.1, and platelet is 235. Chemistries showed sodium of 138, potassium 3.6, chloride 117, bicarb 17, BUN 9, creatinine 1.6. ASSESSMENT AND PLAN: The case was discussed with Umu Medeiros. The plan is that we are going to give one pack of RBC and also we are going to continue the current medications, possible subacute rehab tomorrow. Jaquan Graf MD
[2018-09-16] MEDS: Piperacill/Tazo 2.25gm in Dex 2.25 GM/50 ML BAG IVPB SCH (03:37)
[2018-09-16 06:50] LABS: BASO % 0.3 % (0.0-2.0); EOS # 0.2 K/uL (0.0-0.7); EOS % 2.3 % (0.0-4.0); HEMOGLOBIN 9.2 g/dL (11.0-16.0); LYMPH # 1.3 K/uL (1.0-4.3); LYMPH % 18.7 % (20.0-40.0); MEAN CELL VOLUME 84.4 fL (81.0-99.0); MEAN PLATELET VOLUME 6.9 fL (7.2-11.7); MONO # 0.4 K/uL (0.0-0.8); MONO % 5.4 % (0.0-10.0); NEUT # 4.9 K/uL (1.8-7.0); NEUT % 73.3 % (50.0-75.0); NRBC % 0.1 % (0.0-2.0); RBC 3.4 Mil/uL (3.80-5.20); RED CELL DISTRIBUTION WIDTH 17.8 % (11.5-14.5); WHITE BLOOD COUNT 6.7 K/uL (4.8-10.8)
[2018-09-16 17:22] VITALS: BP 137/65; PULSE 99; RESP 18; TEMP 98; O2SAT 100
--- NOTE | 2018-09-16 18:41 | PN ---
DATE: 09/16/2018 SUBJECTIVE: The patient does not appear to be in any distress. PHYSICAL EXAMINATION VITAL SIGNS: Blood pressure 135/78, heart rate 83, temperature 97.4, respirations 20. HEENT: Pale conjunctivae. CHEST: Absent breath sounds over the bases. HEART: S1 and S2 regular. EXTREMITIES: Left above-knee amputation. LABORATORY DATA: SMA-7: Sodium 138, potassium 3.6, chloride 117, CO2 of 17, glucose 110, BUN 9, creatinine 1.6, calcium 7.3. Today's hemoglobin and hematocrit are 9.2 and 28.6. White count and platelet count are within normal limits. ASSESSMENT: 1. Status post left above-knee amputation. 2. Paroxysmal atrial fibrillation. 3. Anemia. 4. Status post non-ST elevation myocardial infarction. RECOMMENDATIONS: Case was discussed with the TECHNICAL SALES MANAGER. Continue Crestor 10 mg once a day, folic acid 1 mg once a day, Lopressor 25 mg daily, Zosyn 2.25 g every 8 hours. Start Eliquis 2.5 mg twice a day, if cleared from surgical point of view. Angel Garcia MD
--- NOTE | 2018-09-16 19:26 | CP.PCM.PN ---
Subjective - Date & Time of Evaluation Date of Evaluation: 09/16/18 Time of Evaluation: 08:00 - Subjective Subjective: arousable confused going to [facility] Objective - Vital Signs/Intake and Output Vital Signs (last 24 hours): Temp Pulse Resp BP Pulse Ox 98.0 F 99 H 18 137/65 100 09/16/18 16:00 09/16/18 16:00 09/16/18 16:00 09/16/18 16:00 09/16/18 16:00 - Medications Medications: Current Medications Donepezil HCl (Aricept) 10 mg PO HS [facility] Last Admin: 09/15/18 21:00 Dose: 10 mg Escitalopram Oxalate (Lexapro) 5 mg PO HS [facility] Last Admin: 09/15/18 21:00 Dose: 5 mg Ferrous Sulfate (Feosol) 325 mg PO DAILY [facility] Last Admin: 09/16/18 09:58 Dose: 325 mg Folic Acid (Folic Acid) 1 mg PO DAILY [facility] Last Admin: 09/16/18 10:01 Dose: 1 mg Piperacillin Sod/Tazobactam Sod (Zosyn 2.25 Gm Iv Premix) 2.25 gm in 50 mls @ 100 mls/hr IVPB Q8H [facility]; Protocol Last Admin: 09/16/18 03:37 Dose: 100 mls/hr Memantine (Namenda) 5 mg PO BID [facility] Last Admin: 09/16/18 18:01 Dose: 5 mg Metoprolol Tartrate (Lopressor) 25 mg PO DAILY [facility] Last Admin: 09/16/18 09:59 Dose: 25 mg Morphine Sulfate (Morphine) 4 mg IVP Q4 PRN PRN Reason: Pain, moderate (4-7) Rosuvastatin Calcium (Crestor) 10 mg PO HS [facility] Last Admin: 09/15/18 21:00 Dose: 10 mg Topiramate (Topamax) 25 mg PO BID [facility] Last Admin: 09/16/18 18:01 Dose: 25 mg - Labs Labs: 09/16/18 06:37 09/14/18 07:06 PT 13.6 SECONDS (9.7-12.2) H 09/09/18 17:09 INR 1.2 09/09/18 17:09 APTT 31 SECONDS (21-34) 09/10/18 07:02 - Constitutional Appears: Non-toxic, Cachectic, Chronically Ill - Head Exam Head Exam: NORMOCEPHALIC - Eye Exam Eye Exam: absent: Scleral icterus - ENT Exam ENT Exam: Mucous Membranes Dry - Neck Exam Neck Exam: absent: Lymphadenopathy - Respiratory Exam Respiratory Exam: Decreased Breath Sounds - Cardiovascular Exam Cardiovascular Exam: REGULAR RHYTHM - GI/Abdominal Exam GI & Abdominal Exam: Distended, Soft - Rectal Exam Rectal Exam: Deferred - Exam Exam: NORMAL INSPECTION - Extremities Exam Extremities Exam: absent: Pedal Edema Additional comments: left AKA - Back Exam Back Exam: absent: CVA tenderness (L), CVA tenderness (R) - Neurological Exam Neurological Exam: Altered - Psychiatric Exam Psychiatric exam: Depressed - Skin Skin Exam: Dry Assessment and Plan (1) Wound of left lower extremity Status: Acute (2) Cellulitis Status: Acute (3) Dementia Status: Acute (4) NSTEMI (non-ST elevated myocardial infarction) Status: Acute - Assessment and Plan (Free Text) Assessment: cont rx as ordered for 7 days post op
--- NOTE | 2018-09-16 23:42 | PN ---
DATE: 09/16/2018 SUBJECTIVE: Today, the patient is alert, awake, and pleasant. She is not able to answer questions, but the patient is at her usual state of health and the patient is in no apparent distress. PHYSICAL EXAMINATION: VITAL SIGNS: The patient has a blood pressure of 137/65, pulse is 99, respirations 18, temperature 98 degrees Fahrenheit. NECK: Slight stiffness. LUNGS: Clear, even though there is a poor inspiratory effort. HEART: Regular rate and rhythm and at times it is irregular. Positive murmur. ABDOMEN: Soft. Nontender. No palpable mass. EXTREMITIES: There is left AKA. There is no malodor smell, no bleeding at this point. LABORATORY DATA: The labs done on the patient today showed WBC 6.7, hemoglobin 9.2, hematocrit 28.6 and platelet is 217. Chemistries: Sodium 138, potassium 3.6, chloride 117, bicarb is 17, BUN 9, creatinine 1.6. Glucose 110. PLAN: So the plan is that we are going to continue the current medications, but also we are going to add Xarelto 10 mg since the patient has history of atrial fibrillation as per the linoleum installer, Dr. Garcia. The patient may be going to [facility]. The case was discussed with Umu Medeiros, the nurse practitioner. Jaquan Graf MD
--- NOTE | 2018-09-17 06:48 | DS ---
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 The patient was recently discharged requested by the family because the patient had infected leg ulcer, and two days later, the patient was seen by Dr. Pierson, the drafter tool design, was found that the patient's bone was exposed, and asked the daughter to bring the patient back to the hospital. At that time, the daughter agreed for amputation, and the patient had been consulted with Dr. Garcia, the manager hair, and also Dr. Pardo, vascular surgeon. The patient had echocardiogram done and that showed the patient had ejection fraction of 50% to 65%, and the patient was cleared for surgery which was done on 09/13/[address] Pardo. Postop, the patient was doing well, and the patient became more pleasant, more awake, hemoglobin was 9.2, so daughter has requested that the patient should go subacute rehab. The patient will be going to subacute rehab today in [facility]. The patient will have to follow with Dr. Pardo for removal of the stitches. The case was discussed with Umu Medeiros, the nurse practitioner. Jaquan Graf MD
== END 2018-09-16 19:50 | DRG 239 ==
LOC: C.ER 15:36 → C.9E 16:20 → C.6T 19:39
PROVIDERS: ADMIT Specialist; ATTEND Specialist
PROC: 30233N1 Transfusion of Nonautologous Red Blood Cells into Peripheral Vein, Percutaneous Approach (ICD-10-PCS; 2018-09-11)
PROC: 0Y6D0Z1 Detachment at Left Upper Leg, High, Open Approach (ICD-10-PCS; principal; 2018-09-13 12:15)
DX: I96 Gangrene, not elsewhere classified (principal); I21.4 Non-ST elevation (NSTEMI) myocardial infarction; L97.829 Non-pressure chronic ulcer of other part of left lower leg with unspecified severity; L03.90 Cellulitis, unspecified; I13.0 Hypertensive heart and chronic kidney disease with heart failure and stage 1 through stage 4 chronic kidney disease, or unspecified chronic kidney disease; I87.8 Other specified disorders of veins; G30.9 Alzheimer's disease, unspecified; F02.80 Dementia in other diseases classified elsewhere, unspecified severity, without behavioral disturbance, psychotic disturbance, mood disturbance, and anxiety; D64.9 Anemia, unspecified; E78.5 Hyperlipidemia, unspecified; Z74.01 Bed confinement status; I50.9 Heart failure, unspecified; Z87.891 Personal history of nicotine dependence; M06.9 Rheumatoid arthritis, unspecified; E83.51 Hypocalcemia; E83.42 Hypomagnesemia; E87.6 Hypokalemia; N18.9 Chronic kidney disease, unspecified